=== PATIENT | female | born 1980 | race Caucasian/White ===

== ENCOUNTER 2018-07-04 18:07 | Emergency (ER) | payer MEDICAID ==
[2018-07-04 18:25] VITALS: BP 153/92
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
[2018-07-04] MEDS ORDERED: Morphine 2 MG/ML Syringe IVPUSH ONE (18:26)
[2018-07-04] MEDS ORDERED: Sodium Chloride 0.9% 10 ML Syringe FLUSH PRN (18:26)
[2018-07-04] MEDS ORDERED: Ondansetron 4 MG/2 ML SDV IVPUSH ONE (18:26)
[2018-07-04] MEDS ORDERED: LORazepam 2 MG/ML SDV IVPUSH ONE (18:27)
[2018-07-04] MEDS ORDERED: Sodium Chloride 0.9% 1,000 ML IV SCH (18:30)
[2018-07-04 19:18] LABS: CHLORIDE,CL 102 mmol/L (98-107); SODIUM,NA 141 mmol/L (136-145)
[2018-07-04 19:22] LABS: ANION GAP 16.9 mmol/L (10-20)
[2018-07-04] MEDS ORDERED: diazePAM 5 MG/ML MDV IVPUSH ONE (19:40)
[2018-07-04] MEDS ORDERED: HYDROmorphone 1 MG/ML Syringe IVPUSH ONE (19:40)
--- NOTE | 2018-07-06 09:21 | CT ---
[id number] CT/CT Lumbar Spine WO IV EXAM: LUMBAR SPINE CT WITHOUT CONTRAS INDICATION: Back pain. COMPARISON: None. DISCUSSION: There is a chronic appearing left-sided pars defect at L5 without significant spondylolisthesis. Degenerative endplate sclerosis at L5-S1. No fracture or suspicious bone lesion is identified. The paraspinal soft tissues are unremarkable. Cholecystectomy clips are noted on the scanogram. T12-L1: Negative. L1-L2: Minor annular bulging and bilateral facet degeneration without significant central or foraminal stenosis. L2-L3: Mild annular bulging and bilateral facet degeneration contribute to mild central and bilateral foraminal stenosis. L3-L4: Mild annular bulging and bilateral facet degeneration contribute to mild right foraminal stenosis. No significant central or left foraminal stenosis. L4-L5: Mild to moderate degenerative disc disease with a broad-based disc bulge and mild bilateral facet degeneration contribute to mild central and bilateral foraminal stenosis. L5-S1: Moderate degenerative disc disease with an eccentric left broad-based disc bulge and mild bilateral facet degeneration contribute to mild central, mild left and [id number] right foraminal stenosis. IMPRESSION: 1. Mild to moderate lumbar spondylosis. 2. Left L5 pars defects without significant spondylolisthesis. Jitendra Redding MD 07/06/18 0919 Thank you for allowing us to participate in the care of your patient.
== END 2018-07-04 20:45 | disposition home or self-care (01) ==
LOC: VM.ED 18:07
DX: M54.42 Lumbago with sciatica, left side (principal); F43.10 Post-traumatic stress disorder, unspecified; F11.90 Opioid use, unspecified, uncomplicated; F19.90 Other psychoactive substance use, unspecified, uncomplicated; F41.9 Anxiety disorder, unspecified; F32.9 Major depressive disorder, single episode, unspecified; K21.9 Gastro-esophageal reflux disease without esophagitis; Z79.899 Other long term (current) drug therapy; Z88.8 Allergy status to other drugs, medicaments and biological substances
CPT/HCPCS: 36415; 72131; 80048; 83605; 85025; 86140; 96374; 96375; 99284; J1170; J2060; J2270; J2405; J7030; J3360

== ENCOUNTER 2018-09-25 16:49 | Emergency (ER) | payer MEDICAID ==
--- NOTE | 2018-09-25 17:18 | EDM.PDOC ---
ED HPI GENERAL MEDICAL PROBLEM - General Chief Complaint: Lower Extremity Injury/Pain Stated Complaint: FALL Time Seen by Provider: 09/25/18 16:55 Source of Information: Reports: Patient - History of Present Illness INITIAL COMMENTS - FREE TEXT/NARRATIVE: Patient comes in the emergency department with complaint of left lower back and hip discomfort. Patient states that she was at home and slipped and fell outside landing on her left side. Patient denies hearing any popping sensation. She states that she doesn't history of fibromyalgia, chronic pain and did go to the pain clinic today. Patient did receive cyclobenzaprine to help with muscle spasms. Patient also had an injection earlier in the month help the chronic pain. Patient is very tearful and states that she is in extreme pain. She is able to walk on her own into the emergency department without any difficulty and sit independently. Patient denies of any other injuries or concerns. Onset: Sudden Quality: Reports: Other Severity: Severe Improves with: Reports: None Worsens with: Reports: None Context: Reports: Activity Associated Symptoms: Reports: No Other Symptoms Left Lower Back Pain Score (Numeric/FACES): 8 - Related Data Allergies Allergy/AdvReac Type Severity Reaction Status Date / Time methylprednisolone AdvReac Hallucinati Verified 09/25/18 16:54 ons Home Meds: Home Meds ALPRAZolam [Xanax] 1 mg PO TID 09/20/16 [History] Estradiol [Climara] 0.1 mg TD ASDIRECTED 09/20/16 [History] Omeprazole 20 mg PO DAILY 09/20/16 [History] Acetaminophen [Tylenol] 650 mg PO Q4H PRN tablet 05/20/17 [Rx] Citalopram Hydrobromide [Celexa] 40 mg PO BEDTIME 12/26/17 [History] ARIPiprazole [Abilify] 5 mg PO DAILY 07/03/18 [History] Pantoprazole [ProTONIX] 40 mg PO DAILY 07/03/18 [History] Rizatriptan Benzoate [Rizatriptan] 10 mg PO Q2H PRN 07/03/18 [History] Diclofenac Sodium/Misoprostol [Diclofenac-Misoprost 75-200 Tb] 1 tab PO BID [History] Doxepin [SINEquan] 10 - 20 mg PO BEDTIME PRN 07/04/18 [History] Gabapentin [Neurontin] 300 mg PO TID 30 Days #90 capsule 07/21/18 [Rx] Cyclobenzaprine HCl 10 mg PO TID PRN 30 Days #90 tablet 09/25/18 [Rx] QUEtiapine Fumarate [Seroquel] 200 mg PO BEDTIME 09/25/18 [History] Past Medical History HEENT History: Reports: Impaired Vision, Other (See Below) Other HEENT History: wears glasses Gastrointestinal History: Reports: GERD Musculoskeletal History: Reports: Back Pain, Chronic Neurological History: Reports: Migraines, Seizure, Other (See Below) Other Neuro History: seizure after starting tramadol Psychiatric History: Reports: Anxiety, Depression, Panic Attack, PTSD Endocrine/Metabolic History: Reports: Obesity/BMI 30+ Immunologic History: Reports: None Oncologic (Cancer) History: Reports: None - Infectious Disease History Infectious Disease History: Reports: Chicken Pox - Past Surgical History GI Surgical History: Reports: Appendectomy, Cholecystectomy, Colonoscopy, EGD Female Surgical History: Reports: Section, Hysterectomy, Salpingo- Oophorectomy Other Musculoskeletal Surgeries/Procedures:: fracture, right arm Social & Family History - Family History Family Medical History: Noncontributory : Reports: Other (See Below) Other Musculoskeletal Family History: mother: fibromyalgia Psychiatric: Reports: Depression Other Psychiatric Family History: mother: depression Other Endocrine/Metabolic Family History: brother: obesity Other Oncologic Family History: father: throat cancer - Caffeine Use Caffeine Use: Reports: None Caffeine Use Comment: Patient states she rarely uses caffeine Review of Systems - Review of Systems Review Of Systems: ROS reveals no pertinent complaints other than HPI. Constitutional: Reports: No Symptoms Eyes: Reports: No Symptoms Nose: Reports: No Symptoms Respiratory: Reports: No Symptoms Cardiovascular: Reports: No Symptoms GI/Abdominal: Reports: No Symptoms Musculoskeletal: Reports: Back Pain, Other (left hip pain ) ED EXAM, GENERAL - Physical Exam Exam: See Below Exam Limited By: No Limitations General Appearance: Anxious Eye Exam: Bilateral Eye: EOMI, PERRL Neck: Normal Inspection, Supple, Non-Tender Respiratory/Chest: No Respiratory Distress, Lungs Clear, Normal Breath Sounds, No Accessory Muscle Use, Chest Non-Tender Cardiovascular: Normal Peripheral Pulses, Regular Rate, Rhythm GI/Abdominal: Normal Bowel Sounds, Soft, Non-Tender, No Distention Extremities: Normal Inspection, Normal Range of Motion, Non-Tender Neurological: Alert, Oriented Psychiatric: Anxious Skin Exam: Warm, Dry, Intact, Normal Color Course - Vital Signs Last Recorded V/S: Last Vital Signs Temp 36.1 C 09/25/18 16:49 Pulse 126 H 09/25/18 16:49 Resp 16 09/25/18 16:49 BP 163/106 H 09/25/18 16:49 Pulse Ox 97 09/25/18 16:49 - Orders/Labs/Meds Orders: Active Orders 24 hr Category Date Time Status Lumbar Spine 2 or 3V [CR] Stat Exams 09/25/18 17:04 Ordered Pelvis Min 3V [CR] Stat Exams 09/25/18 17:04 Ordered Departure - Departure Time of Disposition: 18:40 Disposition: Home, Self-Care 01 Condition: Good Clinical Impression: Anxiety attack Contusion, hip Qualifiers: Encounter type: initial encounter Laterality: left Qualified Code(s): S70.02XA - Contusion of left hip, initial encounter - Discharge Information *PRESCRIPTION DRUG MONITORING PROGRAM REVIEWED*: Not Applicable *COPY OF PRESCRIPTION DRUG MONITORING REPORT IN PATIENT ZAIRA: Not Applicable Instructions: Panic Attack, [id number], Contusion Referrals: PCP,Not In Area [Ordering Only Provider] - Additional Instructions: 1. rest 2. Take your cyclobenzaprine as prescribed 3. Ice the area 20 minutes at a time 3-4 times a day 4. Apply compression over the hematoma to help reduce swelling and discomfort 5. Can take [id number] medications to help with any pain and discomfort 6. Activity and diet as tolerated 7. Follow-up if not better with her PCP in 5 days 8. All with any questions and concerns - Problem List Review Problem List Initiated/Reviewed/Updated: Yes - My Orders Last 24 Hours: My Active Orders 09/25/18 17:04 Lumbar Spine 2 or 3V [CR] Stat Pelvis Min 3V [CR] Stat - Assessment/Plan Last 24 Hours: My Active Orders 09/25/18 17:04 Lumbar Spine 2 or 3V [CR] Stat Pelvis Min 3V [CR] Stat Assessment:: 1. back/hip pain 2. anxiety attack Plan: 1. Xray of back and hip 2. patient was prescribed cyclobenzaprine prior to ER visit has has picked up the medication 3. Pt had an anxiety attack during her ER stay. IV access was provided. Zorfran provided for patient began to gag and dry heave. Clonidine and hydroxyzine were given to help with anxiety attack. Within 30 minutes patient states that she is having much better. Patient was back to her baseline. Patient is resting comfortably in her bed. IV fluids normal saline 1000 mL bolus provided. 4. Education regarding rice technique, [id number] medications, rest, diet , and follow-up care was provided to the patient 5. All questions and concerns were addressed prior to the patient's departure.
[2018-09-25] MEDS: Ondansetron 4 MG/2 ML SDV IVPUSH ONE (17:40)
[2018-09-25] MEDS: Sodium Chloride 0.9% 1,000 ML IV ONE (17:48)
[2018-09-25] MEDS: Ketorolac 15 MG/ML SDV IVPUSH ONE (17:51)
--- NOTE | 2018-09-25 17:51 | CR ---
[id number] RAD/RAD Pelvis 1-2V EXAM: SINGLE VIEW PELVIS. INDICATION: FALL. COMPARISON: None. DISCUSSION: No fracture, dislocation or other acute osseous abnormality. IMPRESSION: 1. NO ACUTE OSSEOUS ABNORMALITIES. Klai Asif DO 09/25/18 [id number] Thank you for allowing us to participate in the care of your patient.
[2018-09-25] MEDS: hydrOXYzine HCl 50 MG/ML SDV IM ONE (17:52)
[2018-09-25 17:53] VITALS: BP 137/85
[2018-09-25] MEDS: cloNIDine 0.1 MG Tab PO ONE (17:53)
--- NOTE | 2018-09-25 17:57 | CR ---
[id number] RAD/RAD Lumbar Spine 2-3V EXAM: AP AND LATERAL LUMBAR SPINE. INDICATION: Fall. COMPARISON: CT L-spine without contrast July 04, 2018. FINDINGS: No acute fracture or subluxation is seen. No evidence of acute compression deformity. Mild multilevel degenerative changes of the lumbar spine most pronounced at L2-L3 and L5-S1. The pedicles are intact. IMPRESSION: NO ACUTE FRACTURE OR SUBLUXATION. Kali Asif DO 09/25/18 [id number] Thank you for allowing us to participate in the care of your patient.
== END 2018-09-25 18:40 | disposition home or self-care (01) ==
LOC: VM.ED 16:49
DX: S70.02XA Contusion of left hip, initial encounter (principal); F41.9 Anxiety disorder, unspecified; K21.9 Gastro-esophageal reflux disease without esophagitis; F32.9 Major depressive disorder, single episode, unspecified; E66.9 Obesity, unspecified; Z79.899 Other long term (current) drug therapy; Z90.49 Acquired absence of other specified parts of digestive tract; Z88.8 Allergy status to other drugs, medicaments and biological substances; W01.0XXA Fall on same level from slipping, tripping and stumbling without subsequent striking against object, initial encounter
CPT/HCPCS: 72100; 72170; 96361; 96372; 96374; 96375; 99283; A9270; J1885; J2405; J3410; J7030

== ENCOUNTER 2019-01-28 17:36 | Emergency (ER) | payer MEDICAID ==
[2019-01-28] MEDS ORDERED: Sodium Chloride 0.9% 10 ML Syringe FLUSH PRN (17:52)
[2019-01-28] MEDS: Albuterol/Ipratropium 3.0-0.5 MG/3 ML Neb Soln NEB ONE (18:00)
--- NOTE | 2019-01-28 18:05 | EDM.PDOC ---
ED HPI GENERAL MEDICAL PROBLEM - General Chief Complaint: General Stated Complaint: HEART DOESN'T FEEL RIGHT Time Seen by Provider: 01/28/19 17:45 Source of Information: Reports: Patient History Limitations: Reports: No Limitations - History of Present Illness INITIAL COMMENTS - FREE TEXT/NARRATIVE: Pt presents c/o shortness of breath for the past month, sharp on and off cp in the past. Quality: Reports: Sharp Severity: Moderate Improves with: Reports: None Worsens with: Reports: None Associated Symptoms: Reports: No Other Symptoms - Related Data Allergies Allergy/AdvReac Type Severity Reaction Status Date / Time methylprednisolone AdvReac Hallucinati Verified 09/25/18 16:54 ons Home Meds: Home Meds ALPRAZolam [Xanax] 1 mg PO TID 09/20/16 [History] Estradiol [Climara] 0.1 mg TD ASDIRECTED 09/20/16 [History] Omeprazole 20 mg PO DAILY 09/20/16 [History] Acetaminophen [Tylenol] 650 mg PO Q4H PRN tablet 05/20/17 [Rx] Citalopram Hydrobromide [Celexa] 40 mg PO BEDTIME 12/26/17 [History] ARIPiprazole [Abilify] 5 mg PO DAILY 07/03/18 [History] Pantoprazole [ProTONIX] 40 mg PO DAILY 07/03/18 [History] Rizatriptan Benzoate [Rizatriptan] 10 mg PO Q2H PRN 07/03/18 [History] Diclofenac Sodium/Misoprostol [Diclofenac-Misoprost 75-200 Tb] 1 tab PO BID [History] Doxepin [SINEquan] 10 - 20 mg PO BEDTIME PRN 07/04/18 [History] Cyclobenzaprine HCl 10 mg PO TID PRN 30 Days #90 tablet 09/25/18 [Rx] QUEtiapine Fumarate [Seroquel] 200 mg PO BEDTIME 09/25/18 [History] Gabapentin [Neurontin] 300 mg PO TID 30 Days #90 capsule 01/04/19 [Rx] Past Medical History HEENT History: Reports: Impaired Vision, Other (See Below) Other HEENT History: wears glasses Gastrointestinal History: Reports: GERD Musculoskeletal History: Reports: Back Pain, Chronic Neurological History: Reports: Migraines, Seizure, Other (See Below) Other Neuro History: seizure after starting tramadol Psychiatric History: Reports: Anxiety, Depression, Panic Attack, PTSD Endocrine/Metabolic History: Reports: Obesity/BMI 30+ Immunologic History: Reports: None Oncologic (Cancer) History: Reports: None - Infectious Disease History Infectious Disease History: Reports: Chicken Pox - Past Surgical History GI Surgical History: Reports: Appendectomy, Cholecystectomy, Colonoscopy, EGD Female Surgical History: Reports: Section, Hysterectomy, Salpingo- Oophorectomy Other Musculoskeletal Surgeries/Procedures:: fracture, right arm Social & Family History - Family History Family Medical History: Noncontributory : Reports: Other (See Below) Other Musculoskeletal Family History: mother: fibromyalgia Psychiatric: Reports: Depression Other Psychiatric Family History: mother: depression Other Endocrine/Metabolic Family History: brother: obesity Other Oncologic Family History: father: throat cancer - Caffeine Use Caffeine Use: Reports: None Caffeine Use Comment: Patient states she rarely uses caffeine ED ROS GENERAL - Review of Systems Review Of Systems: See Below Constitutional: Reports: No Symptoms HEENT: Reports: No Symptoms Respiratory: Reports: Shortness of Breath Cardiovascular: Reports: Chest Pain Endocrine: Reports: No Symptoms GI/Abdominal: Reports: No Symptoms : Reports: No Symptoms Musculoskeletal: Reports: No Symptoms Skin: Reports: No Symptoms Neurological: Reports: No Symptoms Psychiatric: Reports: No Symptoms Hematologic/Lymphatic: Reports: No Symptoms Immunologic: Reports: No Symptoms ED EXAM, GENERAL - Physical Exam Exam: See Below Free Text/Narrative:: Pt presents with on and off shortness of breath and sharp chest pain for the last month. Pt states it has gotten worse tonight. PT states has hx of anxiety and is dealing with the of some close friends this week. Post Ativan RR / sob improved, cp improved. Exam Limited By: No Limitations General Appearance: Alert, WD/WN, No Apparent Distress Eye Exam: Bilateral Eye: PERRL Ears: Normal External Exam, Normal Canal, Hearing Grossly Normal, Normal TMs Nose: Normal Inspection Throat/Mouth: Normal Inspection Head: Atraumatic, Normocephalic Neck: Normal Inspection, Supple, Non-Tender Respiratory/Chest: No Respiratory Distress, Lungs Clear, Normal Breath Sounds, No Accessory Muscle Use, Chest Non-Tender Cardiovascular: Normal Peripheral Pulses, Regular Rate, Rhythm, No Edema, No Gallop, No JVD, No Murmur, No Rub GI/Abdominal: Normal Bowel Sounds, Soft, Non-Tender, No Organomegaly, No Distention, No Abnormal Bruit, No Mass, Pelvis Stable (Female) Exam: Normal External Exam, Normal Speculum Exam, Normal Bimanual Exam Rectal (Female) Exam: Normal Exam, Normal Rectal Tone Back Exam: Normal Inspection, Full Range of Motion Extremities: Normal Inspection, Normal Range of Motion, Non-Tender, No Pedal Edema, Normal Capillary Refill Neurological: Alert, Oriented Psychiatric: Anxious Skin Exam: Warm, Dry, Intact Lymphatic: No Adenopathy Course - Orders/Labs/Meds Orders: Active Orders 24 hr Category Date Time Status RT Aerosol Therapy [RC] ASDIRECTED Care 01/28/19 17:54 Active UA RFX GAYATHRI AND CULT IF INDIC [URIN] Stat Lab 01/28/19 17:52 Ordered Sodium Chloride 0.9% [Saline Flush] Med 01/28/19 17:52 Active 10 ml FLUSH ASDIRECTED PRN Peripheral IV Insertion Adult [OM.PC] Routine Oth 01/28/19 17:52 Ordered Medication Orders Sodium Chloride (Saline Flush) 10 ml FLUSH ASDIRECTED PRN PRN Reason: Keep Vein Open Labs: Laboratory Tests 01/28/19 01/28/19 Range/Units 18:14 18:14 WBC 11.1 H (4.0-10.0) x10^3/uL RBC 4.83 (4.00-5.50) x10^6/uL Hgb 15.0 (12.0-16.0) g/dL Hct 43.8 (33.0-47.0) % MCV 90.7 (78.0-93.0) fL MCH 31.1 (26.0-32.0) pg MCHC 34.2 (32.0-36.0) g/dL RDW Coeff of Cameron 13.1 (10.0-15.0) % Plt Count 319 (130-400) x10^3/uL Neut % (Auto) 65.7 (50.0-80.0) % Lymph % (Auto) 28.5 (25.0-50.0) % [place] % (Auto) 5.2 (2.0-11.0) % Eos % (Auto) 0.3 (0.0-4.0) % Baso % (Auto) 0.3 (0.2-1.2) % Sodium 141 (69-191) mmol/L Potassium 3.7 (1.5-9.9) mmol/L Chloride 101 (54-184) mmol/L Carbon Dioxide 27 (21-32) mmol/L Anion Gap 16.7 (10-20) mmol/L BUN 7 (7-18) mg/dL Creatinine 0.9 (0.55-1.02) mg/dL Est Cr Clr Drug Dosing TNP Estimated GFR (MDRD) > 60 Glucose 125 H (74-106) mg/dL Calcium 9.1 (8.5-10.1) mg/dL Meds: Medications Generic Name Dose Route Start Last Admin Trade Name Freq PRN Reason Stop Dose Admin Sodium Chloride 10 ml 01/28/19 17:52 Saline Flush FLUSH ASDIRECTED PRN Keep Vein Open Discontinued Medications Generic Name Dose Route Start Last Admin Trade Name Freq PRN Reason Stop Dose Admin Albuterol/Ipratropium 3 ml 01/28/19 17:54 01/28/19 18:00 Duoneb 3.0-0.5 Mg/3 Ml NEB 01/28/19 17:55 3 ml ONETIME ONE Administration Sodium Chloride 1,000 mls @ 999 mls/hr 01/28/19 17:53 01/28/19 18:18 Normal Saline IV 01/28/19 18:53 999 mls/hr ONETIME ONE Administration Lorazepam 1 mg 01/28/19 18:19 Ativan IVPUSH 01/28/19 18:20 STAT ONE Departure - Departure Time of Disposition: 18:54 Disposition: Home, Self-Care 01 Clinical Impression: Anxiety - Discharge Information Instructions: Panic Attack, [id number] Forms: ED Department Discharge Additional Instructions: Follow up with pcp for continued care. - My Orders Last 24 Hours: My Active Orders 01/28/19 17:52 UA RFX GAYATHRI AND CULT IF INDIC [URIN] Stat Sodium Chloride 0.9% [Saline Flush] 10 ml FLUSH ASDIRECTED PRN Peripheral IV Insertion Adult [OM.PC] Routine 01/28/19 17:54 RT Aerosol Therapy [RC] ASDIRECTED - Assessment/Plan Last 24 Hours: My Active Orders 01/28/19 17:52 UA RFX GAYATHRI AND CULT IF INDIC [URIN] Stat Sodium Chloride 0.9% [Saline Flush] 10 ml FLUSH ASDIRECTED PRN Peripheral IV Insertion Adult [OM.PC] Routine 01/28/19 17:54 RT Aerosol Therapy [RC] ASDIRECTED
[2019-01-28] MEDS: Sodium Chloride 0.9% 1,000 ML IV ONE (18:18)
[2019-01-28] MEDS: LORazepam 2 MG/ML SDV IVPUSH ONE (18:20)
--- NOTE | 2019-01-28 18:20 | CR ---
[id number] RAD/RAD Chest PA And Lateral EXAM: RAD Chest PA And Lateral CLINICAL DATA: CHEST PAIN COMPARISON: NO PREVIOUS SIMILAR EXAM IS AVAILABLE. FINDINGS: The lungs are clear. The cardiomediastinal contour is normal. The regional bones and soft tissues are unremarkable. IMPRESSION: NO ACUTE PROCESS. Baldev Woody MD 01/28/19 1801 Thank you for allowing us to participate in the care of your patient.
[2019-01-28 18:36] LABS: CHLORIDE,CL 101 mmol/L (54-184); SODIUM,NA 141 mmol/L (69-191)
[2019-01-28 18:42] LABS: ANION GAP 16.7 mmol/L (10-20)
== END 2019-01-28 19:03 | disposition home or self-care (01) ==
LOC: VM.ED 17:36 → SUPCPDRO 17:36 → VM.ED 19:03
DX: F41.9 Anxiety disorder, unspecified (principal); F32.9 Major depressive disorder, single episode, unspecified; K21.9 Gastro-esophageal reflux disease without esophagitis; E66.9 Obesity, unspecified; Z79.899 Other long term (current) drug therapy; Z88.8 Allergy status to other drugs, medicaments and biological substances
CPT/HCPCS: 71046; 80048; 85025; 96361; 96374; 99285; J2060; J7030; J7620-GY

== ENCOUNTER 2019-05-17 18:31 | Emergency (ER) | payer MEDICAID ==
[2019-05-17] MEDS ORDERED: GI Cocktail Oral Solution 30 ML PO ONE (19:08)
--- NOTE | 2019-05-17 19:22 | EDM.PDOC ---
ED HPI GENERAL MEDICAL PROBLEM - General Chief Complaint: Abdominal Pain Stated Complaint: UPPER GI PAIN Time Seen by Provider: 05/17/19 19:30 Source of Information: Reports: Patient - History of Present Illness INITIAL COMMENTS - FREE TEXT/NARRATIVE: Nette is a 38 y/o female who comes to the ER with epigastric pain. She reports that pain started about 2 hours ago after she ate some toast and cheese. She was seen on 05/10/2019 by the clinic provider and a CT was done and she was diagnosed with colitis. She was started on abx and Prednisone. She has been feeling better until tonight when the pain started. Has normal BM this AM. Upper Abdomen Pain Score (Numeric/FACES): 8 - Related Data Allergies Allergy/AdvReac Type Severity Reaction Status Date / Time methylprednisolone AdvReac Hallucinati Verified 05/17/19 19:06 ons Home Meds: Home Meds ALPRAZolam [Xanax] 1 mg PO TID 09/20/16 [History] estradioL [Climara] 0.1 mg TD ASDIRECTED 09/20/16 [History] Acetaminophen [Tylenol] 650 mg PO Q4H PRN tablet 05/20/17 [Rx] ARIPiprazole [Abilify] 5 mg PO DAILY 07/03/18 [History] Pantoprazole [ProTONIX] 40 mg PO DAILY 07/03/18 [History] Rizatriptan Benzoate [Rizatriptan] 10 mg PO Q2H PRN 07/03/18 [History] FLUoxetine HCl [Prozac] 20 mg PO DAILY 03/09/19 [History] Cyclobenzaprine HCl 10 mg PO TID PRN 30 Days #90 tablet 05/07/19 [Rx] Gabapentin [Neurontin] 600 mg PO TID 30 Days #90 tab 05/07/19 [Rx] Past Medical History HEENT History: Reports: Impaired Vision, Other (See Below) Other HEENT History: wears glasses Gastrointestinal History: Reports: GERD Musculoskeletal History: Reports: Back Pain, Chronic Neurological History: Reports: Migraines, Seizure, Other (See Below) Other Neuro History: seizure after starting tramadol Psychiatric History: Reports: Anxiety, Depression, Panic Attack, PTSD Endocrine/Metabolic History: Reports: Obesity/BMI 30+ Immunologic History: Reports: None Oncologic (Cancer) History: Reports: None - Infectious Disease History Infectious Disease History: Reports: Chicken Pox - Past Surgical History GI Surgical History: Reports: Appendectomy, Cholecystectomy, Colonoscopy, EGD Female Surgical History: Reports: Section, Hysterectomy, Salpingo- Oophorectomy Other Musculoskeletal Surgeries/Procedures:: fracture, right arm Social & Family History - Family History Family Medical History: Noncontributory : Reports: Other (See Below) Other Musculoskeletal Family History: mother: fibromyalgia Psychiatric: Reports: Depression Other Psychiatric Family History: mother: depression Other Endocrine/Metabolic Family History: brother: obesity Other Oncologic Family History: father: throat cancer - Caffeine Use Caffeine Use: Reports: None Caffeine Use Comment: Patient states she rarely uses caffeine Review of Systems - Review of Systems Review Of Systems: See Below Constitutional: Reports: No Symptoms Eyes: Reports: No Symptoms Ears: Reports: No Symptoms Nose: Reports: No Symptoms Mouth/Throat: Reports: No Symptoms Respiratory: Reports: No Symptoms Cardiovascular: Reports: No Symptoms GI/Abdominal: Reports: Abdominal Pain (epigastric pain) Genitourinary: Reports: No Symptoms Musculoskeletal: Reports: No Symptoms Skin: Reports: No Symptoms Neurological: Reports: No Symptoms Psychiatric: Reports: No Symptoms ED EXAM, GENERAL - Physical Exam Exam: See Below General Appearance: Alert, WD/WN, Other (Sitting on ER cart and leaning over pillow and crying) Ears: Hearing Grossly Normal Nose: Normal Inspection Throat/Mouth: Normal Voice Head: Atraumatic, Normocephalic Neck: Normal Inspection Respiratory/Chest: No Respiratory Distress, Lungs Clear, Chest Non-Tender Cardiovascular: Regular Rate, Rhythm, No Edema, No Murmur GI/Abdominal: Normal Bowel Sounds, Soft, No Distention, Tender (Epigastric region), Other (Obese) (Female) Exam: Deferred Rectal (Female) Exam: Deferred Back Exam: Normal Inspection Extremities: Normal Inspection, Normal Capillary Refill Neurological: Alert, Oriented, CN II-XII Intact, Normal Cognition Psychiatric: Normal Affect Skin Exam: Warm, Dry, Intact, Normal Color, No Rash Lymphatic: No Adenopathy Course - Vital Signs Text/Narrative:: 1914 The patient was seen by the CHANGE CONTROL MANAGER. She is still on abx. Will given GI cocktail intially to see if sx improve. 1934 No pain relief from GI Cocktail. Labs and CT ordered. 2109 Lab reviewed. Patient reports no relief of pain yet in her epigastric region. Fentanyl 100mcg IVP ordered. 2[address] [facility] in [place] contacted and requested transfer there for further care. CT sent for surgeon to review. 2139 Dr Jaimes accepted the patient for transfer to [facility]. Patient requesting to have family member take her POV, she is stable at this time. Will await bed assignment from [facility]. Patient remained stable until leaving the ER with family member for POV transfer to [place]. Last Recorded V/S: Last Vital Signs Temp 36.9 C 05/17/19 18:45 Pulse 118 H 05/17/19 18:45 Resp 20 05/17/19 18:45 BP 160/101 H 05/17/19 18:45 Pulse Ox 96 05/17/19 18:45 - Orders/Labs/Meds Orders: Active Orders 24 hr Category Date Time Status Abdomen Pelvis w Cont [CT] Stat Exams 05/17/19 19:40 Taken Sodium Chloride 0.9% [Saline Flush] Med 05/17/19 19:39 Active 10 ml FLUSH ASDIRECTED PRN Saline Lock Insert [OM.PC] Stat Oth 05/17/19 19:39 Ordered Medication Orders Sodium Chloride (Saline Flush) 10 ml FLUSH ASDIRECTED PRN PRN Reason: Keep Vein Open Labs: Laboratory Tests 05/17/19 05/17/19 05/17/19 Range/Units 19:50 19:50 20:16 WBC 16.2 H (4.0-10.0) x10^3/uL RBC 4.64 (4.00-5.50) x10^6/uL Hgb 14.3 (12.0-16.0) g/dL Hct 42.7 (33.0-47.0) % MCV 92.0 (78.0-93.0) fL MCH 30.8 (26.0-32.0) pg MCHC 33.5 (32.0-36.0) g/dL RDW Coeff of Cameron 13.0 (10.0-15.0) % Plt Count 345 (130-400) x10^3/uL Add Manual Diff Yes Neutrophils % (Manual) 72 (50-80) % Band Neutrophils % 2 (0-6) % Lymphocytes % (Manual) 22 L (25-50) % Monocytes % (Manual) 3 (2-11) % Eosinophils % (Manual) 1 (0-4) % Hypersegmented Neuts Few H Platelet Estimate Adequate Sodium 140 (136-145) mmol/L Potassium 3.9 (3.5-5.1) mmol/L Chloride 100 (98-107) mmol/L Carbon Dioxide 30 (21-32) mmol/L Anion Gap 13.9 (10-20) mmol/L BUN 12 (7-18) mg/dL Creatinine 0.8 (0.55-1.02) mg/dL Est Cr Clr Drug Dosing 90.90 mL/min Estimated GFR (MDRD) > 60 Glucose 95 (74-106) mg/dL Calcium 9.6 (8.5-10.1) mg/dL Corrected Calcium 9.84 (8.5-10.1) mg/dL Total Bilirubin 0.2 (0.2-1.0) mg/dL AST 17 (15-37) U/L ALT 28 (14-59) U/L Alkaline Phosphatase 134 H (46-116) U/L Total Protein 7.4 (6.4-8.2) g/dL Albumin 3.7 (3.4-5.0) g/dL Globulin 3.7 Albumin/Globulin Ratio 1.00 Amylase 19 L (25-115) U/L Lipase 45 L (73-393) U/L Urine Color Yellow (YELLOW) Urine Appearance Slightly cloudy H (CLEAR) Urine pH 5.5 (5.0-8.0) Ur Specific [place] 1.025 Urine Protein Negative (NEGATIVE) mg/dL Urine Glucose (UA) Negative (NEGATIVE) mg/dL Urine Ketones Negative (NEGATIVE) mg/dL Urine Occult Blood Negative (NEGATIVE) Urine Nitrite Negative (NEGATIVE) Urine Bilirubin Negative (NEGATIVE) Urine Urobilinogen 0.2 (0.2) EU/dL Ur Leukocyte Esterase Negative (NEGATIVE) Urine Opiates Screen (NEGATIVE) Ur Buprenorphine Scrn (NEGATIVE) Ur Oxycodone Screen (NEGATIVE) Ur EDDP (Meth Metab) (NEGATIVE) Urine Methadone Screen (NEGATIVE) Ur Barbituates Screen (NEGATIVE) Ur Tricyclics Screen (NEGATIVE) Ur Phencyclidine Scrn (NEGATIVE) Ur Amphetamines Screen (NEGATIVE) U Methamphetamines Scrn (NEGATIVE) Urine MDMA Screen (NEGATIVE) U Benzodiazepines Scrn (NEGATIVE) Urine Cocaine Screen (NEGATIVE) U Marijuana (THC) Screen (NEGATIVE) 05/17/19 Range/Units 20:16 WBC (4.0-10.0) x10^3/uL RBC (4.00-5.50) x10^6/uL Hgb (12.0-16.0) g/dL Hct (33.0-47.0) % MCV (78.0-93.0) fL MCH (26.0-32.0) pg MCHC (32.0-36.0) g/dL RDW Coeff of Cameron (10.0-15.0) % Plt Count (130-400) x10^3/uL Add Manual Diff Neutrophils % (Manual) (50-80) % Band Neutrophils % (0-6) % Lymphocytes % (Manual) (25-50) % Monocytes % (Manual) (2-11) % Eosinophils % (Manual) (0-4) % Hypersegmented Neuts Platelet Estimate Sodium (136-145) mmol/L Potassium (3.5-5.1) mmol/L Chloride (98-107) mmol/L Carbon Dioxide (21-32) mmol/L Anion Gap (10-20) mmol/L BUN (7-18) mg/dL Creatinine (0.55-1.02) mg/dL Est Cr Clr Drug Dosing mL/min Estimated GFR (MDRD) Glucose (74-106) mg/dL Calcium (8.5-10.1) mg/dL Corrected Calcium (8.5-10.1) mg/dL Total Bilirubin (0.2-1.0) mg/dL AST (15-37) U/L ALT (14-59) U/L Alkaline Phosphatase (46-116) U/L Total Protein (6.4-8.2) g/dL Albumin (3.4-5.0) g/dL Globulin Albumin/Globulin Ratio Amylase (25-115) U/L Lipase (73-393) U/L Urine Color (YELLOW) Urine Appearance (CLEAR) Urine pH (5.0-8.0) Ur Specific [place] Urine Protein (NEGATIVE) mg/dL Urine Glucose (UA) (NEGATIVE) mg/dL Urine Ketones (NEGATIVE) mg/dL Urine Occult Blood (NEGATIVE) Urine Nitrite (NEGATIVE) Urine Bilirubin (NEGATIVE) Urine Urobilinogen (0.2) EU/dL Ur Leukocyte Esterase (NEGATIVE) Urine Opiates Screen Negative (NEGATIVE) Ur Buprenorphine Scrn Negative (NEGATIVE) Ur Oxycodone Screen Negative (NEGATIVE) Ur EDDP (Meth Metab) Negative (NEGATIVE) Urine Methadone Screen Negative (NEGATIVE) Ur Barbituates Screen Negative (NEGATIVE) Ur Tricyclics Screen Positive H (NEGATIVE) Ur Phencyclidine Scrn Negative (NEGATIVE) Ur Amphetamines Screen Negative (NEGATIVE) U Methamphetamines Scrn Negative (NEGATIVE) Urine MDMA Screen Negative (NEGATIVE) U Benzodiazepines Scrn Positive H (NEGATIVE) Urine Cocaine Screen Negative (NEGATIVE) U Marijuana (THC) Screen Negative (NEGATIVE) Meds: Medications Generic Name Dose Route Start Last Admin Trade Name Freq PRN Reason Stop Dose Admin Sodium Chloride 10 ml 05/17/19 19:39 Saline Flush FLUSH ASDIRECTED PRN Keep Vein Open Discontinued Medications Generic Name Dose Route Start Last Admin Trade Name Freq PRN Reason Stop Dose Admin Al Hydroxide/Mg Hydroxide 30 ml 05/17/19 19:08 05/17/19 19:13 Gi Cocktail PO 05/17/19 19:09 30 ml ONETIME ONE Administration Fentanyl 100 mcg 05/17/19 21:12 Sublimaze IVPUSH 05/17/19 21:13 ONETIME ONE Sodium Chloride 1,000 mls @ 999 mls/hr 05/17/19 19:39 05/17/19 19:50 Normal Saline IV 05/17/19 20:39 999 mls/hr ONETIME ONE Administration Iopamidol 100 ml 05/17/19 20:25 05/17/19 20:50 Isovue-300 (61%) IVPUSH 05/17/19 20:26 100 ml ONETIME ONE Administration Ketorolac Tromethamine 30 mg 05/17/19 19:39 05/17/19 20:02 Toradol IVPUSH 05/17/19 19:40 30 mg ONETIME ONE Administration Ondansetron HCl 4 mg 05/17/19 19:39 05/17/19 20:00 Zofran IVPUSH 05/17/19 19:40 4 mg ONETIME ONE Administration - Radiology Interpretation Free Text/Narrative:: CT Abd/Pelvis W=Mild to Moderate small bowel obstruction with transition point at or near the jejunal-ileal junction CT Results Date: 05/17/19 CT Results Time: 21:35 Departure - Departure Time of Disposition: 21:45 Disposition: DC/Tfer to Acute Hospital 02 Condition: Good Clinical Impression: Small bowel obstruction - Discharge Information *PRESCRIPTION DRUG MONITORING PROGRAM REVIEWED*: Not Applicable *COPY OF PRESCRIPTION DRUG MONITORING REPORT IN PATIENT ZAIRA: Not Applicable Referrals: Rommel Huynh PA-C [Primary Care Provider] - Forms: ED Department Discharge, Interfacility Transfer EMTALA Additional Instructions: -Transfer to [facility] to Dr Díaz via POV -NPO -Saline Lock in place -To Rm #[id number] [facility] Sepsis Event Note - Focused Exam Vital Signs: Vital Signs Temp Pulse Resp BP Pulse Ox 05/17/19 18:45 36.9 C 118 H 20 160/101 H 96 Date Exam was Performed: 05/17/19 Time Exam was Performed: 21:34 - My Orders Last 24 Hours: My Active Orders 05/17/19 19:39 Sodium Chloride 0.9% [Saline Flush] 10 ml FLUSH ASDIRECTED PRN Saline Lock Insert [OM.PC] Stat 05/17/19 19:40 Abdomen Pelvis w Cont [CT] Stat - Assessment/Plan Last 24 Hours: My Active Orders 05/17/19 19:39 Sodium Chloride 0.9% [Saline Flush] 10 ml FLUSH ASDIRECTED PRN Saline Lock Insert [OM.PC] Stat 05/17/19 19:40 Abdomen Pelvis w Cont [CT] Stat
[2019-05-17] MEDS ORDERED: Sodium Chloride 0.9% 1,000 ML IV ONE (19:39)
[2019-05-17] MEDS ORDERED: Sodium Chloride 0.9% 10 ML Syringe FLUSH PRN (19:39)
[2019-05-17] MEDS ORDERED: Ondansetron 4 MG/2 ML SDV IVPUSH ONE (19:39)
[2019-05-17] MEDS ORDERED: Ketorolac 30 MG/ML SDV IVPUSH ONE (19:39)
[2019-05-17 20:19] LABS: CHLORIDE,CL 100 mmol/L (98-107); SODIUM,NA 140 mmol/L (136-145)
[2019-05-17 20:22] LABS: ANION GAP 13.9 mmol/L (10-20)
[2019-05-17] MEDS ORDERED: Iopamidol 612 MG/ML 100 ML Bottle IVPUSH ONE (20:25)
[2019-05-17 20:30] LABS: BUPRENORPHINE,URINE NEGATIVE (NEGATIVE); MARIJUANA,URINE NEGATIVE (NEGATIVE); METHYLENEDIOXYMETHAMP,UR NEGATIVE (NEGATIVE); PHENCYCLIDINE,URINE NEGATIVE (NEGATIVE)
[2019-05-17] MEDS ORDERED: fentaNYL 100 MCG/2 ML SDV IVPUSH ONE (21:12)
[2019-05-17] MEDS ORDERED: Sodium Chloride 0.9% 1,000 ML IV SCH (21:45)
[2019-05-17 21:50] VITALS: BP 118/85; PULSE 117
--- NOTE | 2019-05-18 07:58 | CT ---
[id number] CT/CT Abdomen Pelvis W IV EXAM: CT Abdomen Pelvis W IV CLINICAL DATA: ABDOMINAL PAIN HISTORY OF COLITIS COMPARISON: CORRELATION IS MADE WITH THE EXAM OF MAY 10, 2019 FINDINGS: Small bowel obstruction is seen The transition is in the distal jejunum The pelvis shows no mass or adenopathy The appendix is not seen The uterus and ovaries appear to have been removed There is no free air or free fluid The gallbladder also appears to have been removed The liver and spleen, adrenals and aorta, kidneys and pancreas are unremarkable Report provided at time of exam IMPRESSION: DISTAL SMALL BOWEL OBSTRUCTION Baldev Woody MD 05/18/19 0757 Thank you for allowing us to participate in the care of your patient.
== END 2019-05-17 22:05 | disposition short-term general hospital (02) ==
LOC: VM.ED 18:31
DX: K56.609 Unspecified intestinal obstruction, unspecified as to partial versus complete obstruction (principal); K21.9 Gastro-esophageal reflux disease without esophagitis; F41.9 Anxiety disorder, unspecified; F32.9 Major depressive disorder, single episode, unspecified; G43.909 Migraine, unspecified, not intractable, without status migrainosus; E66.9 Obesity, unspecified; Z68.23 Body mass index [BMI] 23.0-23.9, adult; Z88.8 Allergy status to other drugs, medicaments and biological substances; Z79.899 Other long term (current) drug therapy
CPT/HCPCS: 36415; 74177; 80053; 80305; 81003; 82150; 83690; 85025; 96361; 96374; 96375; 99285; A9270; J1885; J2405; J3010; J7030; Q9967

== ENCOUNTER 2019-12-19 18:25 | Emergency (ER) | payer MEDICAID ==
[2019-12-19] MEDS ORDERED: Sodium Chloride 0.9% 10 ML Syringe FLUSH PRN (18:30)
[2019-12-19] MEDS ORDERED: Sodium Chloride 0.9% 1,000 ML IV ONE (18:32)
[2019-12-19] MEDS ORDERED: Ketorolac 15 MG/ML SDV IVPUSH ONE (18:32)
[2019-12-19] MEDS ORDERED: Ondansetron 4 MG/2 ML SDV IVPUSH ONE (18:32)
--- NOTE | 2019-12-19 18:37 | EDM.PDOC ---
<Elizabeth Carlisle - Last Filed: 12/19/19 18:32> ED HPI GENERAL MEDICAL PROBLEM - General Chief Complaint: Abdominal Pain Stated Complaint: ABDOMINAL PAIN Time Seen by Provider: 12/19/19 18:25 Source of Information: Reports: Patient History Limitations: Reports: No Limitations - History of Present Illness INITIAL COMMENTS - FREE TEXT/NARRATIVE: Patient comes into the emergency department with complaint of abdominal pain. Patient states abdominal pain started earlier in the day and describes as sharp shooting sensation on the left mid section of her abdomen. Patient states that it has been constant and has been getting worse ever since the pain started. Patient denies any Activities that make the symptoms worse or better. Patient states that she has had 4 bowel movements which are normal for her. Her bowel movements have been it normal characteristics for her. Patient denies any nausea or vomiting currently with this. She also denies any abnormal gi symptoms of foul smelling urination, frequency, hesitancy, bleeding, or pelvic pain. Patient Also denies any chest pain, shortness of breath, blurred vision, or peripheral edema. Patient states that she is been relatively healthy and has not been exposed any COVID19 symptoms that she is aware of and has not been experiencing any symptoms. Patient denies taking any medications prior to arrival to the emergency department. Onset: Sudden Location: Reports: Abdomen Quality: Reports: Sharp, Stabbing, Throbbing Severity: Severe Improves with: Reports: None Worsens with: Reports: None Associated Symptoms: Reports: No Other Symptoms - Related Data Allergies Allergy/AdvReac Type Severity Reaction Status Date / Time methylprednisolone AdvReac Hallucinati Verified 12/19/19 19:03 ons Home Meds: Home Meds estradioL [Climara] 0.1 mg TD ASDIRECTED 09/20/16 [History] ARIPiprazole [Abilify] 5 mg PO DAILY 07/03/18 [History] Pantoprazole [ProTONIX] 40 mg PO DAILY 07/03/18 [History] FLUoxetine HCl [Prozac] 20 mg PO DAILY 03/09/19 [History] Past Medical History HEENT History: Reports: Impaired Vision, Other (See Below) Other HEENT History: wears glasses Gastrointestinal History: Reports: GERD Musculoskeletal History: Reports: Back Pain, Chronic Neurological History: Reports: Migraines, Seizure, Other (See Below) Other Neuro History: seizure after starting tramadol Psychiatric History: Reports: Anxiety, Depression, Panic Attack, PTSD Endocrine/Metabolic History: Reports: Obesity/BMI 30+ Immunologic History: Reports: None Oncologic (Cancer) History: Reports: None - Infectious Disease History Infectious Disease History: Reports: Chicken Pox - Past Surgical History GI Surgical History: Reports: Appendectomy, Cholecystectomy, Colonoscopy, EGD Female Surgical History: Reports: Section, Hysterectomy, Salpingo- Oophorectomy Other Musculoskeletal Surgeries/Procedures:: fracture, right arm Social & Family History - Family History Family Medical History: Noncontributory : Reports: Other (See Below) Other Musculoskeletal Family History: mother: fibromyalgia Psychiatric: Reports: Depression Other Psychiatric Family History: mother: depression Other Endocrine/Metabolic Family History: brother: obesity Other Oncologic Family History: father: throat cancer - Caffeine Use Caffeine Use: Reports: None Caffeine Use Comment: Patient states she rarely uses caffeine ED ROS GENERAL - Review of Systems Review Of Systems: Comprehensive ROS is negative, except as noted in HPI. Constitutional: Reports: No Symptoms HEENT: Reports: No Symptoms Respiratory: Reports: No Symptoms Cardiovascular: Reports: No Symptoms Endocrine: Reports: No Symptoms : Reports: No Symptoms Musculoskeletal: Reports: No Symptoms Skin: Reports: No Symptoms Neurological: Reports: No Symptoms Psychiatric: Reports: No Symptoms Hematologic/Lymphatic: Reports: No Symptoms Immunologic: Reports: No Symptoms ED EXAM, GENERAL - Physical Exam Exam: See Below Exam Limited By: No Limitations General Appearance: Alert, WD/WN, No Apparent Distress Eye Exam: Bilateral Eye: EOMI, PERRL Head: Atraumatic, Normocephalic Neck: Normal Inspection, Supple, Non-Tender, Full Range of Motion Respiratory/Chest: No Respiratory Distress, Lungs Clear, Normal Breath Sounds, No Accessory Muscle Use, Chest Non-Tender Cardiovascular: Normal Peripheral Pulses, Regular Rate, Rhythm, No Edema GI/Abdominal: Normal Bowel Sounds, Soft, No Organomegaly, No Distention, No Abnormal Bruit, Pelvis Stable, Tender (left flank region ) Extremities: Normal Inspection, Normal Range of Motion, Non-Tender, No Pedal Edema, Normal Capillary Refill Neurological: Alert, Oriented Psychiatric: Normal Affect, Anxious Skin Exam: Warm, Dry, Intact, Normal Color Departure - Departure Disposition: Home, Self-Care 01 Clinical Impression: Abdominal pain - Discharge Information Instructions: Acetaminophen; Hydrocodone tablets or capsules, Abdominal Pain, Adult Referrals: Rommel Huynh PA-C [Primary Care Provider] - Forms: ED Department Discharge Additional Instructions: Home to rest. If you are still having pain, follow-up in the clinic. Your CT scan today was negative for obstruction, diverticulitis, ruptured bowel, etc. However, if you are still having discomfort, you may need further workup/surgical referral. [place] 5/325mg 1 every 6 hours as needed for pain. Off work tomorrow if needed. - Assessment/Plan Assessment:: 1. abdominal pain Plan: 1. Labs completed in the ER. 2. CT scan completed in the ER. 3. IV initiated in the emergency department 4. IV fluids provided 5. Pain medication given for severe pain and discomfort-toradol IV given 6. Zofran given in the ER to help with nausea 7. Report and care transitioned to Ritchie SOFIA. <Ritchie Bueno W - Last Filed: 12/20/19 01:20> ED HPI GENERAL MEDICAL PROBLEM Left Middle Abdomen Pain Score (Numeric/FACES): 8 Course - Vital Signs Last Recorded V/S: Last Vital Signs Temp 36.9 C 12/19/19 18:30 Pulse 126 H 12/19/19 18:30 Resp 16 12/19/19 18:30 BP 152/100 H 12/19/19 18:30 Pulse Ox 97 12/19/19 18:30 - Orders/Labs/Meds Orders: Active Orders 24 hr Category Date Time Status Peripheral IV Insertion Adult [OM.PC] Stat Oth 12/19/19 18:30 Ordered Labs: Laboratory Tests 12/19/19 12/19/19 12/19/19 Range/Units 18:35 18:35 18:35 WBC 11.8 H (4.0-10.0) x10^3/uL RBC 4.73 (4.00-5.50) x10^6/uL Hgb 14.6 (12.0-16.0) g/dL Hct 42.9 (33.0-47.0) % MCV 90.7 (78.0-93.0) fL MCH 30.9 (26.0-32.0) pg MCHC 34.0 (32.0-36.0) g/dL RDW Coeff of Cameron 12.6 (10.0-15.0) % Plt Count 335 (130-400) x10^3/uL Neut % (Auto) 61.1 (50.0-80.0) % Lymph % (Auto) 33.0 (25.0-50.0) % O'Brien % (Auto) 5.3 (2.0-11.0) % Eos % (Auto) 0.3 (0.0-4.0) % Baso % (Auto) 0.3 (0.2-1.2) % Sodium 137 (136-145) mmol/L Potassium 3.7 (3.5-5.1) mmol/L Chloride 100 (98-107) mmol/L Carbon Dioxide 25 (21-32) mmol/L Anion Gap 15.7 (10-20) mmol/L BUN 12 (7-18) mg/dL Creatinine 0.9 (0.55-1.02) mg/dL Est Cr Clr Drug Dosing TNP Estimated GFR (MDRD) > 60 Glucose 109 H (74-106) mg/dL Calcium 9.5 (8.5-10.1) mg/dL Corrected Calcium 9.58 (8.5-10.1) mg/dL Total Bilirubin 0.3 (0.2-1.0) mg/dL AST 13 L (15-37) U/L ALT 30 (14-59) U/L Alkaline Phosphatase 124 H (46-116) U/L C-Reactive Protein 0.6 (<=0.9) mg/dL Total Protein 7.5 (6.4-8.2) g/dL Albumin 3.9 (3.4-5.0) g/dL Globulin 3.6 Albumin/Globulin Ratio 1.08 Urine Color Dark yellow H (YELLOW) Urine Appearance Slightly cloudy H (CLEAR) Urine pH 6.0 (5.0-8.0) Ur Specific [place] 1.025 Urine Protein Negative (NEGATIVE) mg/dL Urine Glucose (UA) Negative (NEGATIVE) mg/dL Urine Ketones Negative (NEGATIVE) mg/dL Urine Occult Blood Negative (NEGATIVE) Urine Nitrite Negative (NEGATIVE) Urine Bilirubin Negative (NEGATIVE) Urine Urobilinogen 0.2 (0.2) EU/dL Ur Leukocyte Esterase Negative (NEGATIVE) Meds: Medications Discontinued Medications Generic Name Dose Route Start Last Admin Trade Name Freq PRN Reason Stop Dose Admin Hydrocodone Bitart/Acetaminophen 1 packet 12/19/19 19:43 12/19/19 19:51 Take Home: Acetam/Hydrocodon 325-5 Mg, 5 Pack PO 12/19/19 19:44 1 packet ONETIME ONE Administration Hydromorphone HCl 1 mg 12/19/19 19:26 12/19/19 19:33 Dilaudid IVPUSH 12/19/19 19:27 1 mg ONETIME ONE Administration Sodium Chloride 1,000 mls @ 1,000 mls/hr 12/19/19 18:32 12/19/19 18:43 Normal Saline IV 12/19/19 19:31 1,000 mls/hr ONETIME ONE Administration Iopamidol 100 ml 12/19/19 18:48 12/19/19 19:07 Isovue-300 (61%) IVPUSH 12/19/19 18:49 100 ml ONETIME ONE Administration Ketorolac Tromethamine 15 mg 12/19/19 18:32 12/19/19 18:43 Toradol IVPUSH 12/19/19 18:33 15 mg ONETIME ONE Administration Ondansetron HCl 4 mg 12/19/19 18:32 12/19/19 18:43 Zofran IVPUSH 12/19/19 18:33 4 mg ONETIME ONE Administration Sodium Chloride 10 ml 12/19/19 18:30 Saline Flush FLUSH ASDIRECTED PRN Keep Vein Open - Radiology Interpretation Free Text/Narrative:: CT abdomen and pelvis were obtained with contrast and were negative for acute pathology. - Re-Assessments/Exams Free Text/Narrative Re-Assessment/Exam: Pt reported significant improvement with IV dilaudid and toradol. Departure - Departure Time of Disposition: 20:00 Sepsis Event Note (ED) - Focused Exam Vital Signs: Vital Signs Temp Pulse Resp BP Pulse Ox 12/19/19 18:30 36.9 C 126 H 16 152/100 H 97
[2019-12-19] MEDS ORDERED: Iopamidol 612 MG/ML 100 ML Bottle IVPUSH ONE (18:48)
[2019-12-19 19:15] VITALS: BP 152/100; PULSE 126
[2019-12-19] MEDS ORDERED: HYDROmorphone 1 MG/ML Syringe IVPUSH ONE (19:26)
[2019-12-19 19:33] LABS: ANION GAP 15.7 mmol/L (10-20); CHLORIDE,CL 100 mmol/L (98-107); SODIUM,NA 137 mmol/L (136-145)
--- NOTE | 2019-12-19 19:35 | CT ---
[id number] CT/CT Abdomen Pelvis W IV EXAM: CT Abdomen Pelvis W IV CLINICAL DATA: ABDOMEN LEFT FLANK PAIN COMPARISON STUDY: 06/15/2019 FINDINGS: Lung bases are clear. The gallbladder is surgically absent. The liver, spleen, pancreas, adrenal glands and kidneys are unremarkable. No bowel obstruction or inflammation. Colonic diverticulosis without evidence of acute diverticulitis. No lymphadenopathy, free fluid, or pneumoperitoneum. Scattered changes of spondylosis the spine. No fracture or osseous lesion. IMPRESSION: No acute CT findings within the abdomen or pelvis to explain the patient's symptoms. Kali Asif DO 12/19/19 1935 Thank you for allowing us to participate in the care of your patient.
[2019-12-19] MEDS ORDERED: Take Home: Acetaminophen/HYDROcodone 325-5 MG, 5 Tab Pack PO ONE (19:43)
== END 2019-12-19 20:33 | disposition home or self-care (01) ==
LOC: VM.ED 18:25
DX: R10.9 Unspecified abdominal pain (principal); K21.9 Gastro-esophageal reflux disease without esophagitis; E66.9 Obesity, unspecified; F41.0 Panic disorder [episodic paroxysmal anxiety]; F32.9 Major depressive disorder, single episode, unspecified; F43.10 Post-traumatic stress disorder, unspecified; Z90.49 Acquired absence of other specified parts of digestive tract; Z90.710 Acquired absence of both cervix and uterus; Z68.38 Body mass index [BMI] 38.0-38.9, adult; Z88.8 Allergy status to other drugs, medicaments and biological substances; Z79.899 Other long term (current) drug therapy
CPT/HCPCS: 74177; 80053; 81003; 85025; 86140; 96361; 96374; 96375; 99284; 99284-25; A9270-GY; J1170; J1885; J2405; J7030; Q9967

== ENCOUNTER 2020-02-06 14:09 | Emergency (ER) | payer MEDICAID ==
[2020-02-06] MEDS: Piperacillin/Tazobactam 3.375 GM in Sodium Chloride 0.9% 100 ML IV ONE (14:53)
[2020-02-06] MEDS: Morphine 4 MG/ML Syringe IVPUSH ONE ×2 (14:54→16:21)
[2020-02-06] MEDS: Ondansetron 4 MG/2 ML SDV IVPUSH ONE (15:01)
[2020-02-06 15:07] LABS: CHLORIDE,CL 100 mmol/L (98-107); SODIUM,NA 136 mmol/L (136-145)
[2020-02-06 15:08] LABS: ANION GAP 11.6 mmol/L (10-20)
[2020-02-06] MEDS: Iopamidol 612 MG/ML 100 ML Bottle IVPUSH ONE (15:55)
[2020-02-06 16:03] VITALS: BP 135/84; PULSE 115
--- NOTE | 2020-02-06 16:20 | CT ---
[id number] CT/CT Neck Soft Tissue W IV EXAM: SOFT TISSUE NECK CT WITH CONTRAST INDICATION: ABSCESS TOOTH, LEFT-SIDED FACIAL SWELLING. COMPARISON: None. DISCUSSION: The parotid, submandibular and thyroid glands are normal in appearance. The airway and digestive tract mucosa are unremarkable. There are multiple prominent cervical lymph nodes. For example there is a level 2 lymph node on the left measuring 1.0 cm in short axis (series 3 image 45. The imaged skull base and upper chest are unremarkable. There is soft tissue edema and inflammatory change involving the left face. No drainable fluid collection is identified. No suspicious osseous lesions. IMPRESSION: 1. Soft tissue edema and inflammatory change involving the superficial soft tissues of the left face. No fluid collection to suggest abscess. 2. Bilateral cervical adenopathy, nonspecific. Kali Asif DO 02/06/20 [id number] Thank you for allowing us to participate in the care of your patient.
[2020-02-06] MEDS: Sodium Chloride 0.9% 10 ML Syringe FLUSH PRN (16:21)
[2020-02-06] MEDS: Take Home: Acetaminophen/HYDROcodone 325-10 MG, 5 Tab Pack PO ONE (16:46)
--- NOTE | 2020-02-06 16:49 | EDM.PDOC ---
ED HPI GENERAL MEDICAL PROBLEM - General Chief Complaint: ENT Problem Stated Complaint: ABSCESS TOOTH Time Seen by Provider: 02/06/20 15:58 Source of Information: Reports: Patient History Limitations: Reports: No Limitations - History of Present Illness INITIAL COMMENTS - FREE TEXT/NARRATIVE: Pt. presents to ER with complaints of dental pain locate in area of L lower jaw. Pt. states that she has a history of poor dentition and dental caries. She states that she started having discomfort on . She states that today, the discomfort is much worse. Her L side of he face is exquisitely tender and much more swollen in the past 12 hours or so. Denies any fever or chills. Denies any problems with swallowing or managing her secretions of her mouth. Denies any headache or facial pain other than to her L lower jaw area. Denies any chest pain or shortness of breath. Onset Date: 02/03/20 Location: Reports: Face Associated Symptoms: Reports: Other Left Face/Facial Pain Score (Numeric/FACES): 7 - Related Data Allergies Allergy/AdvReac Type Severity Reaction Status Date / Time methylprednisolone AdvReac Hallucinati Verified 02/06/20 16:10 ons Home Meds: Home Meds ARIPiprazole [Abilify] 5 mg PO DAILY 07/03/18 [History] Pantoprazole [ProTONIX] 40 mg PO DAILY 07/03/18 [History] Estrogens, Conjugated [Premarin] 1.25 mg PO DAILY 01/21/20 [History] Rizatriptan Benzoate [Rizatriptan] 10 mg PO ASDIRECTED 01/21/20 [History] Citalopram [Citalopram HBr] 20 mg PO DAILY 02/01/20 [History] Cyclobenzaprine [Flexeril] 5 mg PO TID 02/01/20 [History] traMADol [Ultram] 50 mg PO BID PRN 30 Days #60 tablet 02/01/20 [Rx] Past Medical History HEENT History: Reports: Impaired Vision, Other (See Below) Other HEENT History: wears glasses Gastrointestinal History: Reports: GERD Musculoskeletal History: Reports: Back Pain, Chronic Neurological History: Reports: Migraines, Seizure, Other (See Below) Other Neuro History: seizure after starting tramadol Psychiatric History: Reports: Anxiety, Depression, Panic Attack, PTSD Endocrine/Metabolic History: Reports: Obesity/BMI 30+ Immunologic History: Reports: None Oncologic (Cancer) History: Reports: None - Infectious Disease History Infectious Disease History: Reports: Chicken Pox - Past Surgical History GI Surgical History: Reports: Appendectomy, Cholecystectomy, Colonoscopy, EGD Female Surgical History: Reports: Section, Hysterectomy, Salpingo-Oophorectomy Other Musculoskeletal Surgeries/Procedures:: fracture, right arm Social & Family History - Family History Family Medical History: Noncontributory : Reports: Other (See Below) Other Musculoskeletal Family History: mother: fibromyalgia Psychiatric: Reports: Depression Other Psychiatric Family History: mother: depression Other Endocrine/Metabolic Family History: brother: obesity Other Oncologic Family History: father: throat cancer - Caffeine Use Caffeine Use: Reports: None Caffeine Use Comment: Patient states she rarely uses caffeine - Living Situation & Occupation Living situation: Reports: (2 children 1 boy 1 girl) 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[employer]) ED ROS GENERAL - Review of Systems Review Of Systems: See Below Constitutional: Reports: No Symptoms HEENT: Reports: Dental Pain Respiratory: Reports: No Symptoms Cardiovascular: Reports: No Symptoms Endocrine: Reports: No Symptoms GI/Abdominal: Reports: No Symptoms : Reports: No Symptoms Musculoskeletal: Reports: No Symptoms Skin: Reports: No Symptoms Neurological: Reports: No Symptoms Psychiatric: Reports: No Symptoms Hematologic/Lymphatic: Reports: No Symptoms Immunologic: Reports: No Symptoms ED EXAM, GENERAL - Physical Exam Exam: See Below General Appearance: Alert, WD/WN, No Apparent Distress Nose: Normal Inspection, Normal Mucosa, No Blood Throat/Mouth: Other (significant edema to L lower jaw/buccal area. Numerous dental caries noted to the teeth. No obvious large abscess noted. The edema, however, is quite firm to the touch. No edema to the hypopharynx. Uvula is midline. She does have prominent bilateral cervical lymph nodes. ) Head: Atraumatic, Normocephalic Neck: Lymphadenopathy (L), Lymphadenopathy (R) Respiratory/Chest: No Respiratory Distress, Lungs Clear, No Accessory Muscle Use, Chest Non-Tender Cardiovascular: Normal Peripheral Pulses, Regular Rate, Rhythm, No Edema, No JVD Neurological: Alert, Oriented, CN II-XII Intact, No Motor/Sensory Deficits Psychiatric: Normal Affect, Anxious, Tearful Skin Exam: Warm, Dry, Intact, Normal Color Course - Vital Signs Last Recorded V/S: Last Vital Signs Temp 36.2 C 02/06/20 15:58 Pulse 115 H 02/06/20 15:58 Resp 16 02/06/20 15:58 BP 135/84 02/06/20 15:58 Pulse Ox 98 02/06/20 15:58 - Orders/Labs/Meds Orders: Active Orders 24 hr Category Date Time Status CULTURE BLOOD [BC] Stat Lab 02/06/20 14:40 Results CULTURE BLOOD [BC] Stat Lab 02/06/20 14:53 Received Sodium Chloride 0.9% [Saline Flush] Med 02/06/20 14:30 Active 10 ml FLUSH ASDIRECTED PRN Blood Culture x2 Reflex Set [OM.PC] Stat Oth 02/06/20 14:30 Ordered Peripheral IV Insertion Adult [OM.PC] Routine Oth 02/06/20 14:30 Ordered Medication Orders Sodium Chloride (Saline Flush) 10 ml FLUSH ASDIRECTED PRN PRN Reason: Keep Vein Open Last Admin: 02/06/20 16:21 Dose: 10 ml Documented by: CAROLANN Labs: Laboratory Tests 02/06/20 02/06/20 02/06/20 Range/Units 14:40 14:40 14:40 WBC 11.8 H (4.0-10.0) x10^3/uL RBC 4.72 (4.00-5.50) x10^6/uL Hgb 14.3 (12.0-16.0) g/dL Hct 43.2 (33.0-47.0) % MCV 91.5 (78.0-93.0) fL MCH 30.3 (26.0-32.0) pg MCHC 33.1 (32.0-36.0) g/dL RDW Coeff of Cameron 12.9 (10.0-15.0) % Plt Count 276 (130-400) x10^3/uL Neut % (Auto) 73.6 (50.0-80.0) % Lymph % (Auto) 19.1 L (25.0-50.0) % [place] % (Auto) 6.7 (2.0-11.0) % Eos % (Auto) 0.3 (0.0-4.0) % Baso % (Auto) 0.3 (0.2-1.2) % PT 9.9 (9.5-12.3) SEC INR 0.9 L (2.0-3.5) Sodium 136 (136-145) mmol/L Potassium 3.6 (3.5-5.1) mmol/L Chloride 100 (98-107) mmol/L Carbon Dioxide 28 (21-32) mmol/L Anion Gap 11.6 (10-20) mmol/L BUN 9 (7-18) mg/dL Creatinine 0.8 (0.55-1.02) mg/dL Est Cr Clr Drug Dosing TNP Estimated GFR (MDRD) > 60 Glucose 146 H (74-106) mg/dL Lactic Acid (0.4-2.0) mmol/L Calcium 9.1 (8.5-10.1) mg/dL Corrected Calcium 9.34 (8.5-10.1) mg/dL Total Bilirubin 0.4 (0.2-1.0) mg/dL AST 15 (15-37) U/L ALT 24 (14-59) U/L Alkaline Phosphatase 144 H (46-116) U/L C-Reactive Protein 10.5 H (<=0.9) mg/dL Total Protein 7.9 (6.4-8.2) g/dL Albumin 3.7 (3.4-5.0) g/dL Globulin 4.2 Albumin/Globulin Ratio 0.88 02/06/20 Range/Units 14:40 WBC (4.0-10.0) x10^3/uL RBC (4.00-5.50) x10^6/uL Hgb (12.0-16.0) g/dL Hct (33.0-47.0) % MCV (78.0-93.0) fL MCH (26.0-32.0) pg MCHC (32.0-36.0) g/dL RDW Coeff of Cameron (10.0-15.0) % Plt Count (130-400) x10^3/uL Neut % (Auto) (50.0-80.0) % Lymph % (Auto) (25.0-50.0) % [place] % (Auto) (2.0-11.0) % Eos % (Auto) (0.0-4.0) % Baso % (Auto) (0.2-1.2) % PT (9.5-12.3) SEC INR (2.0-3.5) Sodium (136-145) mmol/L Potassium (3.5-5.1) mmol/L Chloride (98-107) mmol/L Carbon Dioxide (21-32) mmol/L Anion Gap (10-20) mmol/L BUN (7-18) mg/dL Creatinine (0.55-1.02) mg/dL Est Cr Clr Drug Dosing Estimated GFR (MDRD) Glucose (74-106) mg/dL Lactic Acid 1.7 (0.4-2.0) mmol/L Calcium (8.5-10.1) mg/dL Corrected Calcium (8.5-10.1) mg/dL Total Bilirubin (0.2-1.0) mg/dL AST (15-37) U/L ALT (14-59) U/L Alkaline Phosphatase (46-116) U/L C-Reactive Protein (<=0.9) mg/dL Total Protein (6.4-8.2) g/dL Albumin (3.4-5.0) g/dL Globulin Albumin/Globulin Ratio Meds: Medications Generic Name Dose Route Start Last Admin Trade Name Freq PRN Reason Stop Dose Admin Sodium Chloride 10 ml 02/06/20 14:30 02/06/20 16:21 Saline Flush FLUSH 10 ml ASDIRECTED PRN Administration Keep Vein Open Discontinued Medications Generic Name Dose Route Start Last Admin Trade Name Freq PRN Reason Stop Dose Admin Hydrocodone Bitart/Acetaminophen 2 packet 02/06/20 16:33 Take Home: Acetaminophen/Hydrocodone 325-10mg PO 02/06/20 16:34 ONETIME ONE Piperacillin Sod/Tazobactam 100 mls @ 200 mls/hr 02/06/20 14:45 02/06/20 14:53 Sod 3.375 gm/ Sodium Chloride IV 02/06/20 15:14 200 mls/hr STAT ONE Administration Iopamidol 100 ml 02/06/20 15:42 02/06/20 15:55 Isovue-300 (61%) IVPUSH 02/06/20 15:43 100 ml ONETIME ONE Administration Morphine Sulfate 4 mg 02/06/20 14:46 02/06/20 14:54 Morphine IVPUSH 02/06/20 14:47 4 mg ONETIME ONE Administration Morphine Sulfate 4 mg 02/06/20 16:16 02/06/20 16:21 Morphine IVPUSH 02/06/20 16:17 4 mg ONETIME ONE Administration Ondansetron HCl 4 mg 02/06/20 14:58 02/06/20 15:01 Zofran IVPUSH 02/06/20 14:59 4 mg ONETIME ONE Administration - Radiology Interpretation Free Text/Narrative:: CT soft tissue face and neck reveals soft tissue edema and inflammatory change involving the superficial soft tissues of the left face. No fluid collection to suggest abscess. Bilateral cervical lymphadenopathy noted. - Re-Assessments/Exams Free Text/Narrative Re-Assessment/Exam: Pt. was given 3.375gm zosyn IV in ER. Pain was treated with IV morphine. Pt. will return to ER as an outpatient tonight at 2100 and tomorrow AM at 0300 for zosyn 3.375gm IV. Will reevaluate to see if she should continue with the IV antibiotics or be transitioned to oral augmentin. Departure - Departure Time of Disposition: 16:53 Disposition: Home, Self-Care 01 Clinical Impression: Dental abscess, Facial cellulitis - Discharge Information Instructions: Acetaminophen; Hydrocodone tablets or capsules, Piperacillin; Tazobactam injection, Dental Abscess, [id number], Probiotics Referrals: Rommel Huynh PA-C [Primary Care Provider] - Forms: ED Department Discharge Additional Instructions: [place] 10/325mg 1 every 4-6 hours as needed for pain Return to ER at 9PM tonight for second dose of zosyn. The medication is given every 6 hours. Return to ER at 3AM for your third dose of zosyn. I will reevaluate you then and see where we go from there. Follow-up with dentist of choice once the infection has cleared. Will start the patient on Augmentin 875mg 1 twice daily for 10 days once she is transitioned off of zosyn. Blood cultures were obtained. She did have an elevated CRP and white count. Lactic acid was within normal limits. She was advised to sleep with her head elevated, or sleep in a chair to decrease swelling to the area. Return to ER sooner if having troubles breathing, swallowing, or if unable to hold down fluids. Sepsis Event Note (ED) - Evaluation Sepsis Screening Result: No Definite Risk - Focused Exam Vital Signs: Vital Signs Temp Pulse Resp BP Pulse Ox 02/06/20 15:58 36.2 C 115 H 16 135/84 98 - My Orders Last 24 Hours: My Active Orders 02/06/20 14:30 Sodium Chloride 0.9% [Saline Flush] 10 ml FLUSH ASDIRECTED PRN Blood Culture x2 Reflex Set [OM.PC] Stat Peripheral IV Insertion Adult [OM.PC] Routine 02/06/20 14:40 CULTURE BLOOD [BC] Stat 02/06/20 14:53 CULTURE BLOOD [BC] Stat - Assessment/Plan Last 24 Hours: My Active Orders 02/06/20 14:30 Sodium Chloride 0.9% [Saline Flush] 10 ml FLUSH ASDIRECTED PRN Blood Culture x2 Reflex Set [OM.PC] Stat Peripheral IV Insertion Adult [OM.PC] Routine 02/06/20 14:40 CULTURE BLOOD [BC] Stat 02/06/20 14:53 CULTURE BLOOD [BC] Stat
== END 2020-02-06 16:50 | disposition home or self-care (01) ==
LOC: VM.ED 14:09
DX: K04.7 Periapical abscess without sinus (principal); K02.9 Dental caries, unspecified; L03.211 Cellulitis of face; K21.9 Gastro-esophageal reflux disease without esophagitis; F41.9 Anxiety disorder, unspecified; F32.9 Major depressive disorder, single episode, unspecified; E66.9 Obesity, unspecified; Z68.38 Body mass index [BMI] 38.0-38.9, adult; Z88.8 Allergy status to other drugs, medicaments and biological substances
CPT/HCPCS: 36415; 70491; 80053; 83605; 85025; 85610; 86140; 87040; 96365; 96375; 96376; 99284; 99284-25; A9270-GY; J2270; J2405; J2543; J7050; Q9967

== ENCOUNTER 2020-02-08 21:54 | Emergency (ER) | payer MEDICAID ==
[2020-02-08] MEDS ORDERED: Bupivacaine 0.5% 30 ML SDV INJECT PRN (21:55)
[2020-02-08] MEDS ORDERED: Lidocaine 1% with EPINEPHrine 1:100,000 20 ML MDV INFILT STA (21:55)
--- NOTE | 2020-02-08 22:09 | EDM.PDOC ---
ED HPI GENERAL MEDICAL PROBLEM - General Stated Complaint: ER Time Seen by Provider: 02/08/20 21:55 Source of Information: Reports: Patient History Limitations: Reports: No Limitations - History of Present Illness INITIAL COMMENTS - FREE TEXT/NARRATIVE: Patient comes emergency department today initially for an outpatient IV antibiotic therapy for an abscess of the left lower dental region. This patient has been receiving outpatient IV antibiotic therapy for a left lower mandible abscess since 02-06-20. She has been receiving every 6 hour Zosyn. She has had some improvement of the swelling but it is still difficult for her to open her mouth. I did change the patient to a ER patient due to my concerns of an abscess that has formed. She has not had any fever or chills. No nausea or vomiting. No breathing difficulty. No difficulty swallowing. No drooling. She can barely open her mouth. She has been taking the Augmentin that she was started on earlier today but she was continued on the IV Zosyn at the same time. She has had quite a bit of difficulty with the Augmentin as she has a peptic ulcer and has had quite a bit of nausea and abdominal pain and cramping with this. She is planning to see a dentist in the next couple of days for the extraction of this tooth. But really she has had minimal improvement and is still quite uncomfortable. Right Face/Facial Pain Score (Numeric/FACES): 7 - Related Data Allergies Allergy/AdvReac Type Severity Reaction Status Date / Time methylprednisolone AdvReac Hallucinati Verified 02/07/20 04:48 ons Home Meds: Home Meds ARIPiprazole [Abilify] 5 mg PO DAILY 07/03/18 [History] Pantoprazole [ProTONIX] 40 mg PO DAILY 07/03/18 [History] Estrogens, Conjugated [Premarin] 1.25 mg PO DAILY 01/21/20 [History] Rizatriptan Benzoate [Rizatriptan] 10 mg PO ASDIRECTED 01/21/20 [History] Citalopram [Citalopram HBr] 20 mg PO DAILY 02/01/20 [History] Cyclobenzaprine [Flexeril] 5 mg PO TID 02/01/20 [History] traMADol [Ultram] 50 mg PO BID PRN 30 Days #60 tablet 02/01/20 [Rx] Hydrocodone/Acetaminophen [[place] 10-325 Tablet] 1 tab PO Q6H PRN 02/07/20 [History] Clindamycin HCl 300 mg PO Q6HR #28 capsule 02/08/20 [Rx] Past Medical History HEENT History: Reports: Impaired Vision, Other (See Below) Other HEENT History: wears glasses Gastrointestinal History: Reports: GERD Musculoskeletal History: Reports: Back Pain, Chronic Neurological History: Reports: Migraines, Seizure, Other (See Below) Other Neuro History: seizure after starting tramadol Psychiatric History: Reports: Anxiety, Depression, Panic Attack, PTSD Endocrine/Metabolic History: Reports: Obesity/BMI 30+ Immunologic History: Reports: None Oncologic (Cancer) History: Reports: None - Infectious Disease History Infectious Disease History: Reports: Chicken Pox - Past Surgical History GI Surgical History: Reports: Appendectomy, Cholecystectomy, Colonoscopy, EGD Female Surgical History: Reports: Section, Hysterectomy, Salpingo- Oophorectomy Other Musculoskeletal Surgeries/Procedures:: fracture, right arm Social & Family History - Family History Family Medical History: Noncontributory : Reports: Other (See Below) Other Musculoskeletal Family History: mother: fibromyalgia Psychiatric: Reports: Depression Other Psychiatric Family History: mother: depression Other Endocrine/Metabolic Family History: brother: obesity Other Oncologic Family History: father: throat cancer - Caffeine Use Caffeine Use: Reports: None Caffeine Use Comment: Patient states she rarely uses caffeine - Living Situation & Occupation Living situation: Reports: (2 children 1 boy 1 girl) 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 This is soft and fluctuant. Quite concerning for an abscess. There is no area of swelling or abscess on the medial part of the mandible or under the tongue. There is no breaks in the skin or drainage in the oropharynx.), Gum Swelling (Left lower mandible), Trismus (Patient is only able to open her mouth about the width of her index finger.). No: Bleeding, Dental Trauma, Drooling, Peritonsillar Mass, Pharyngeal Erythema, Tongue Swelling, Tonsillar Erythema, Tonsillar Exudates, Tonsillar Swelling, Uvular Deviation, Uvular Edema Head: Atraumatic, Normocephalic, Facial Swelling (The patient has quite a bit of swelling over the left cheek. There is no erythema induration. There is no breaks in the skin on the external aspect of the cheek or the internal mucosa. This is very hard indurated no fluctuance concerning for abscess of the mucosa.) Neck: Normal Inspection Respiratory/Chest: No Respiratory Distress Cardiovascular: Normal Peripheral Pulses Psychiatric: Anxious Skin: Warm, Dry, Intact, Normal Color Course - Vital Signs Last Recorded V/S: Last Vital Signs Temp 97.9 F 02/08/20 22:00 Pulse 117 H 02/08/20 22:00 Resp 16 02/08/20 22:00 BP 159/102 H 02/08/20 22:00 Pulse Ox 97 02/08/20 22:00 - Orders/Labs/Meds Orders: Active Orders 24 hr Category Date Time Status Bupivacaine 0.5% [Marcaine 0.5%] Med 02/08/20 21:55 Active 30 ml INJECT ASDIRECTED PRN Medication Orders Bupivacaine HCl (Marcaine 0.5%) 30 ml INJECT ASDIRECTED PRN PRN Reason: Other Last Admin: 02/08/20 22:22 Dose: 30 ml Documented by: MC Meds: Medications Generic Name Dose Route Start Last Admin Trade Name Freq PRN Reason Stop Dose Admin Bupivacaine HCl 30 ml 02/08/20 21:55 02/08/20 22:22 Marcaine 0.5% INJECT 30 ml ASDIRECTED PRN Administration Other Discontinued Medications Generic Name Dose Route Start Last Admin Trade Name Freq PRN Reason Stop Dose Admin Chlorhexidine Gluconate 30 ml 02/08/20 22:31 02/08/20 22:40 Peridex 0.12% Rinse MUCMEM 02/08/20 22:32 Not Given NOW STA Lidocaine/Epinephrine 20 ml 02/08/20 21:55 02/08/20 22:22 Xylocaine 1% With Epinephrine 1:100,000 INFILT 02/08/20 21:56 20 ml ONETIME STA Administration - Re-Assessments/Exams Free Text/Narrative Re-Assessment/Exam: 02/09/20 I did review the CT results from earlier in the week that did not identify any abscess. Although I have quite a bit of concern as the patient's clinical picture has not improved as it should with the administration of the Zosyn. On clinical exam there is clearly an abscess on the lateral aspect of the mandible at the premolar region. I discussed at length with the patient my concerns for an abscess and I think her clinical situation will improve much faster if we open up and drain this area of abscess. Her questions are answered. Verbal consent was obtained for an incision and drainage of the left lower mandible abscess as well as a left inferior alveolar block. 1% lidocaine with epinephrine and 0.5% bupivacaine without epinephrine was mixed in a 50-50 fashion. After the site of the left inferior alveolar block was identified. I instilled 3 mils of the above solution at the site of the block without any blood return. The patient tolerated the procedure well. She had moderate improvement of the pain. I then injected at the site of the abscess 2 mils of the above mixture as well. A small crucifix stab incision was made in the soft tissues and immediate large amount of very foul-smelling purulent discharge that actually had some brown discharge as well. I was able to milk the area of the abscess and get quite a bit more of the drainage removed from the jaw. There is a small amount of bleeding. The patient tolerated the procedure well. After the incision and drainage of the abscess the patient is able to open her mouth about 3 times as far as she did previously. Although I have not been happy with the patient's clinical improvement over the past couple of days with the IV antibiotics I think this is primarily due to the abscess that has not been drained. She is not tolerating the Augmentin due to the side effects of the GI concerns. I will put her on clindamycin 300 mg p.o. 4 times daily. She still needs to see her dentist as soon as possible. I will discontinue the outpatient IV antibiotics as I do not feel that it is warranted at this time as she has clinical improvement and I think she is can have quite a bit more in the next 24 to 48 hours with the drainage of this abscess. We will also have her use chlorhexidine mouthwash for the next 24 to 48 hours if anything new or worse she is to call me or return to the emergency department. She needs to see a dentist as soon as possible. She is understanding of this and her questions are answered. Departure - Departure Time of Disposition: 22:30 Disposition: Home, Self-Care 01 Clinical Impression: Dental abscess - Discharge Information Prescriptions: Clindamycin HCl 300 mg PO Q6HR #28 capsule Instructions: Dental Abscess, [id number] Referrals: Rommel Huynh PA-C [Primary Care Provider] - Additional Instructions: Stop the Augmentin. Start Clindamycin 300mg 4 times a day for the next 7 days. Rx to [facility]. Chlorhexidine mouth wash supplied from the ED 2-3 times a day and then OTC mouth wash without Alcohol until healed. See your DENTIST YONI. OTC pro-biotics yogurts with the anti-biotics. Return to the ED if new or worsening symptoms. Fever, inability or difficulty swallowing or unable to keep meds down. Sepsis Event Note (ED) - Focused Exam Vital Signs: Vital Signs Temp Pulse Resp BP Pulse Ox 02/08/20 22:00 97.9 F 117 H 16 159/102 H 97 - My Orders Last 24 Hours: My Active Orders 02/08/20 21:55 Bupivacaine 0.5% [Marcaine 0.5%] 30 ml INJECT ASDIRECTED PRN - Assessment/Plan Last 24 Hours: My Active Orders 02/08/20 21:55 Bupivacaine 0.5% [Marcaine 0.5%] 30 ml INJECT ASDIRECTED PRN
[2020-02-08] MEDS ORDERED: Chlorhexidine Gluconate 0.12% Oral Rinse 15 ML Cup MUCMEM STA (22:31)
[2020-02-08 23:12] VITALS: BP 159/102; PULSE 117
== END 2020-02-08 22:45 | disposition home or self-care (01) ==
LOC: VM.ED 21:54
DX: K04.7 Periapical abscess without sinus (principal); K21.9 Gastro-esophageal reflux disease without esophagitis; F41.9 Anxiety disorder, unspecified; F32.9 Major depressive disorder, single episode, unspecified; E66.9 Obesity, unspecified; Z68.38 Body mass index [BMI] 38.0-38.9, adult; Z88.8 Allergy status to other drugs, medicaments and biological substances; Z79.899 Other long term (current) drug therapy
CPT/HCPCS: 41800; 99283; 99283-25; J3490

== ENCOUNTER 2020-07-22 13:46 | Emergency (ER) | payer MEDICAID ==
[2020-07-22] MEDS ORDERED: Sodium Chloride 0.9% 10 ML Syringe FLUSH PRN (13:53)
[2020-07-22] MEDS ORDERED: Ondansetron 4 MG/2 ML SDV IVPUSH ONE (13:55)
[2020-07-22] MEDS ORDERED: Sodium Chloride 0.9% 1,000 ML IV SCH (14:00)
[2020-07-22] MEDS ORDERED: LORazepam 2 MG/ML SDV IVPUSH ONE (14:19)
[2020-07-22 14:43] LABS: ANION GAP 17.1 mmol/L (5-15); CHLORIDE,CL 103 mmol/L (98-107); SODIUM,NA 141 mmol/L (136-145)
[2020-07-22] MEDS ORDERED: Ketorolac 15 MG/ML SDV IVPUSH ONE (15:16)
[2020-07-22] MEDS ORDERED: Morphine 4 MG/ML Syringe IVPUSH ONE (15:16)
[2020-07-22] MEDS ORDERED: Prochlorperazine 10 MG/2 ML SDV IV ONE (15:19)
[2020-07-22 15:46] VITALS: BP 115/74; PULSE 135
[2020-07-22] MEDS ORDERED: Iopamidol 612 MG/ML 100 ML Bottle IVPUSH ONE (15:53)
--- NOTE | 2020-07-22 16:00 | CT ---
[id number] CT/CT Abdomen Pelvis W IV EXAM: CT Abdomen Pelvis W IV CLINICAL DATA: ABDOMINAL PAIN COMPARISON: CORRELATION IS MADE WITH 2019 FINDINGS: The gallbladder, uterus, ovaries, and appendix apparently have been removed There is minimal bowel distention. There is minimal thickening of the bowel wall. There is minimal edema in the mesenteric fat. The liver and spleen, kidneys and adrenals, pancreas and aorta are unremarkable otherwise The pelvis shows no mass, adenopathy abscess, or free fluid. There is no free air IMPRESSION: PROBABLE ENTERITIS. Baldev Woody MD 07/22/20 3033 Thank you for allowing us to participate in the care of your patient.
[2020-07-22] MEDS ORDERED: Sodium Chloride 0.9% 1,000 ML IV ONE (16:26)
[2020-07-22] MEDS ORDERED: Take Home: Ondansetron 4 MG Tab.DIS, 2 Tab Pack PO ONE (16:28)
--- NOTE | 2020-07-23 03:49 | EDM.PDOC ---
ED HPI GENERAL MEDICAL PROBLEM - General Chief Complaint: Gastrointestinal Problem Stated Complaint: VOMITING Time Seen by Provider: 07/22/20 13:50 Source of Information: Reports: Patient History Limitations: Reports: No Limitations - History of Present Illness INITIAL COMMENTS - FREE TEXT/NARRATIVE: Pt. presents to ER with complaints of nausea, vomiting, abdominal cramping, and diarrhea. Pt. states that she has been exposed to a family member with similar problems. She is unable to hold down any fluids. Denies any bloody diarrhea. No recent hospitalizations. Denies any fever or chills. Pt. denies any chest pain or shortness of breath. No throat discomfort. No congestion or cough. Pt. has had numerous abdominal surgeries including appendectomy, cholecystectomy, total hysterectomy. Pt. states that she is passing gas and can feel her bowels move. Onset: Today Location: Reports: Abdomen Severity: Severe Right Middle Abdomen Pain Score (Numeric/FACES): 7 - Related Data Allergies Allergy/AdvReac Type Severity Reaction Status Date / Time methylprednisolone AdvReac Hallucinati Verified 07/22/20 14:04 ons Home Meds: Home Meds ARIPiprazole [Abilify] 5 mg PO DAILY 07/03/18 [History] Pantoprazole [ProTONIX] 40 mg PO DAILY 07/03/18 [History] Estrogens, Conjugated [Premarin] 1.25 mg PO DAILY 01/21/20 [History] Rizatriptan Benzoate [Rizatriptan] 10 mg PO ASDIRECTED 01/21/20 [History] Citalopram [Citalopram HBr] 20 mg PO DAILY 02/01/20 [History] Hydrocodone/Acetaminophen [[place] 10-325 Tablet] 1 tab PO Q6H PRN 02/07/20 [History] Clindamycin HCl 300 mg PO Q6HR #28 capsule 02/08/20 [Rx] Baclofen 10 mg PO TID PRN 15 Days #45 tablet 05/18/20 [Rx] traMADol [Ultram] 50 mg PO BID PRN 30 Days #60 tablet 05/18/20 [Rx] Past Medical History HEENT History: Reports: Impaired Vision, Other (See Below) Other HEENT History: wears glasses Gastrointestinal History: Reports: GERD Musculoskeletal History: Reports: Back Pain, Chronic Neurological History: Reports: Migraines, Seizure, Other (See Below) Other Neuro History: seizure after starting tramadol Psychiatric History: Reports: Anxiety, Depression, Panic Attack, PTSD Endocrine/Metabolic History: Reports: Obesity/BMI 30+ Immunologic History: Reports: None Oncologic (Cancer) History: Reports: None - Infectious Disease History Infectious Disease History: Reports: Chicken Pox - Past Surgical History GI Surgical History: Reports: Appendectomy, Cholecystectomy, Colonoscopy, EGD Other GI Surgeries/Procedures: adhesion removal Female Surgical History: Reports: Section, Hysterectomy, Salpingo- Oophorectomy Neurological Surgical History: Reports: None Other Musculoskeletal Surgeries/Procedures:: fracture, right arm Social & Family History - Family History Family Medical History: No Pertinent Family History : Reports: Other (See Below) Other Musculoskeletal Family History: mother: fibromyalgia Psychiatric: Reports: Depression Other Psychiatric Family History: mother: depression Other Endocrine/Metabolic Family History: brother: obesity Other Oncologic Family History: father: throat cancer - Tobacco Use Tobacco Use Status *Q: Current Every Day Tobacco User Years of Tobacco use: 20 Packs/Tins Daily: 0.5 - Caffeine Use Caffeine Use: Reports: None Caffeine Use Comment: Patient states she rarely uses caffeine - Living Situation & Occupation Living situation: Reports: (2 children 1 boy 1 girl) 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 Denies: Black Stool, Bloody Stool, Difficulty Swallowing, Distension, Hematemesis, Hematochezia, Melena, Mucous in Stool, Stool Incontinence : Reports: No Symptoms Musculoskeletal: Reports: No Symptoms Skin: Reports: No Symptoms Neurological: Reports: No Symptoms Psychiatric: Reports: No Symptoms ED EXAM, GENERAL - Physical Exam Exam: See Below Exam Limited By: No Limitations General Appearance: Alert, WD/WN Eye Exam: Bilateral Eye: EOMI, Normal Fundi, Normal Inspection Throat/Mouth: Normal Inspection, Normal Lips, Normal Teeth, Normal Gums, Normal Oropharynx, Normal Voice, No Airway Compromise Head: Atraumatic, Normocephalic Neck: Normal Inspection, Supple, Non-Tender, Full Range of Motion Respiratory/Chest: No Respiratory Distress, Lungs Clear, No Accessory Muscle Use, Chest Non-Tender Cardiovascular: Normal Peripheral Pulses, Regular Rate, Rhythm, No Edema, No JVD Peripheral Pulses: 4+: Radial (R) GI/Abdominal: Soft, Tender. No: Guarding, Rigid, Mass, Hepatomegaly, Splenomegaly (Female) Exam: Deferred Rectal (Female) Exam: Deferred Back Exam: Normal Inspection, Full Range of Motion Extremities: Normal Inspection, Normal Range of Motion, Normal Capillary Refill Neurological: Alert, Oriented, CN II-XII Intact, Normal Cognition, No Motor/Sensory Deficits Psychiatric: Normal Affect, Normal Mood Skin Exam: Warm, Dry, Intact, Normal Color Course - Vital Signs Last Recorded V/S: Last Vital Signs Temp 36.4 C 07/22/20 13:50 Pulse 135 H 07/22/20 15:40 Resp 18 07/22/20 15:40 BP 115/74 07/22/20 15:40 Pulse Ox 98 07/22/20 15:40 - Orders/Labs/Meds Orders: Active Orders 24 hr Category Date Time Status Peripheral IV Insertion Adult [OM.PC] Routine Oth 07/22/20 13:53 Ordered Labs: Laboratory Tests 07/22/20 07/22/20 07/22/20 Range/Units 14:15 14:15 14:15 WBC 11.6 H (4.0-10.0) x10^3/uL RBC 5.14 (4.00-5.50) x10^6/uL Hgb 15.5 D (12.0-16.0) g/dL Hct 47.5 H (33.0-47.0) % MCV 92.4 (78.0-93.0) fL MCH 30.2 (26.0-32.0) pg MCHC 32.6 (32.0-36.0) g/dL RDW Coeff of Cameron 14.0 (10.0-15.0) % Plt Count 140 D (130-400) x10^3/uL Neut % (Auto) 95.8 H (50.0-80.0) % Lymph % (Auto) 2.2 L (25.0-50.0) % Thomas % (Auto) 1.5 L (2.0-11.0) % Eos % (Auto) 0.3 (0.0-4.0) % Baso % (Auto) 0.2 (0.2-1.2) % PT 10.4 (9.9-12.5) SEC INR 0.9 L (2.0-3.5) APTT (25.6-32.8) SEC Sodium 141 (136-145) mmol/L Potassium 4.1 (3.5-5.1) mmol/L Chloride 103 (98-107) mmol/L Carbon Dioxide 25 (21-32) mmol/L Anion Gap 17.1 H (5-15) mmol/L BUN 16 (7-18) mg/dL Creatinine 1.1 H (0.55-1.02) mg/dL Est Cr Clr Drug Dosing TNP Estimated GFR (MDRD) 55 Glucose 142 H (70-99) mg/dL Calcium 9.2 (8.5-10.1) mg/dL Corrected Calcium 9.20 (8.5-10.1) mg/dL Magnesium 1.5 L (1.8-2.4) mg/dL Total Bilirubin 0.4 (0.2-1.0) mg/dL AST 14 L (15-37) U/L ALT 33 (14-59) U/L Alkaline Phosphatase 117 H (46-116) U/L C-Reactive Protein 2.3 H (<=0.9) mg/dL Total Protein 7.6 (6.4-8.2) g/dL Albumin 4.0 (3.4-5.0) g/dL Globulin 3.6 Albumin/Globulin Ratio 1.11 Amylase 26 (25-115) U/L Lipase 46 L (73-393) U/L // Range/Units 14:15 WBC (4.0-10.0) x10^3/uL RBC (4.00-5.50) x10^6/uL Hgb (12.0-16.0) g/dL Hct (33.0-47.0) % MCV (78.0-93.0) fL MCH (26.0-32.0) pg MCHC (32.0-36.0) g/dL RDW Coeff of Cameron (10.0-15.0) % Plt Count (130-400) x10^3/uL Neut % (Auto) (50.0-80.0) % Lymph % (Auto) (25.0-50.0) % Thomas % (Auto) (2.0-11.0) % Eos % (Auto) (0.0-4.0) % Baso % (Auto) (0.2-1.2) % PT (9.9-12.5) SEC INR (2.0-3.5) APTT 22.1 L (25.6-32.8) SEC Sodium (136-145) mmol/L Potassium (3.5-5.1) mmol/L Chloride (98-107) mmol/L Carbon Dioxide (21-32) mmol/L Anion Gap (5-15) mmol/L BUN (7-18) mg/dL Creatinine (0.55-1.02) mg/dL Est Cr Clr Drug Dosing Estimated GFR (MDRD) Glucose (70-99) mg/dL Calcium (8.5-10.1) mg/dL Corrected Calcium (8.5-10.1) mg/dL Magnesium (1.8-2.4) mg/dL Total Bilirubin (0.2-1.0) mg/dL AST (15-37) U/L ALT (14-59) U/L Alkaline Phosphatase (46-116) U/L C-Reactive Protein (<=0.9) mg/dL Total Protein (6.4-8.2) g/dL Albumin (3.4-5.0) g/dL Globulin Albumin/Globulin Ratio Amylase (25-115) U/L Lipase (73-393) U/L Meds: Medications Discontinued Medications Generic Name Dose Route Start Last Admin Trade Name Freq PRN Reason Stop Dose Admin Sodium Chloride 1,000 mls @ 1,000 mls/hr 07/22/20 14:00 07/22/20 13:55 Normal Saline IV 1,000 mls/hr ASDIRECTED FABI Administration Sodium Chloride 1,000 mls @ 999 mls/hr 07/22/20 16:26 07/22/20 15:34 Normal Saline IV 07/22/20 17:26 999 mls/hr ONETIME ONE Administration Iopamidol 100 ml 07/22/20 15:53 07/22/20 15:54 Iopamidol 612 Mg/Ml 100 Ml Bottle IVPUSH 07/22/20 15:54 100 ml ONETIME ONE Administration Ketorolac Tromethamine 15 mg 07/22/20 15:16 07/22/20 15:34 Ketorolac 15 Mg/Ml Sdv IVPUSH 07/22/20 15:17 15 mg ONETIME ONE Administration Lorazepam 1 mg 07/22/20 14:19 07/22/20 14:30 Lorazepam 2 Mg/Ml Sdv IVPUSH 07/22/20 14:20 1 mg STAT ONE Administration Morphine Sulfate 4 mg 07/22/20 15:16 07/22/20 15:38 Morphine 4 Mg/Ml Syringe IVPUSH 07/22/20 15:17 4 mg ONETIME ONE Administration Ondansetron HCl 4 mg 07/22/20 13:55 07/22/20 14:08 Ondansetron 4 Mg/2 Ml Sdv IVPUSH 07/22/20 13:56 4 mg ONETIME ONE Administration Ondansetron HCl 2 packet 07/22/20 16:28 07/22/20 16:37 Take Home: Ondansetron 4 Mg Tab.Dis, 2 Tab Pack PO 07/22/20 16:29 2 packet ONETIME ONE Administration Prochlorperazine Edisylate 5 mg 07/22/20 15:19 07/22/20 15:36 Prochlorperazine 10 Mg/2 Ml Sdv IV 07/22/20 15:20 5 mg ONETIME ONE Administration Sodium Chloride 10 ml 07/22/20 13:53 Sodium Chloride 0.9% 10 Ml Syringe FLUSH ASDIRECTED PRN Keep Vein Open - Radiology Interpretation Free Text/Narrative:: CT abd and pelvis with contrast did not reveal any acute process Departure - Departure Time of Disposition: 16:42 Disposition: Home, Self-Care 01 Clinical Impression: Gastroenteritis - Discharge Information Instructions: Ondansetron oral dissolving tablet, Viral Gastroenteritis, Adult, [id number] Referrals: Rommel Huynh PA-C [Primary Care Provider] - Forms: ED Department Discharge Additional Instructions: Zofran ODT 1 every 6 hours as needed for nausea/vomiting. Clear liquid diet today (water and sport's drinks) You can start advancing your diet to toast, crackers, apples and other bland foods starting tomorrow afternoon if you feel able. Return to ER if you have worsening symptoms or are unable to hold down fluids. Sepsis Event Note (ED) - Evaluation Sepsis Screening Result: No Definite Risk - My Orders Last 24 Hours: My Active Orders 07/22/20 13:53 Peripheral IV Insertion Adult [OM.PC] Routine - Assessment/Plan Last 24 Hours: My Active Orders 07/22/20 13:53 Peripheral IV Insertion Adult [OM.PC] Routine Plan: Zofran ODT 1 every 6 hours as needed for nausea/vomiting. Clear liquid diet today (water and sport's drinks) You can start advancing your diet to toast, crackers, apples and other bland foods starting tomorrow afternoon if you feel able. Return to ER if you have worsening symptoms or are unable to hold down fluids.
== END 2020-07-22 16:42 | disposition home or self-care (01) ==
LOC: VM.ED 13:46
DX: K52.9 Noninfective gastroenteritis and colitis, unspecified (principal); K21.9 Gastro-esophageal reflux disease without esophagitis; E66.9 Obesity, unspecified; Z90.49 Acquired absence of other specified parts of digestive tract; Z79.899 Other long term (current) drug therapy; Z72.0 Tobacco use; Z88.8 Allergy status to other drugs, medicaments and biological substances; Z68.30 Body mass index [BMI] 30.0-30.9, adult
CPT/HCPCS: 36415; 74177; 80053; 82150; 83690; 83735; 85025; 85610; 85730; 86140; 96361; 96374; 96375; 99284; 99284-25; A9270-GY; J0780; J1885; J2060; J2270; J2405; J7030; Q9967

== ENCOUNTER 2020-10-30 19:12 | Emergency (ER) | payer MEDICAID ==
[2020-10-30] MEDS ORDERED: Acetaminophen/HYDROcodone 325-5 MG Tab PO ONE (19:57)
[2020-10-30] MEDS ORDERED: Ondansetron 4 MG Tab.DIS PO ONE (20:03)
[2020-10-30 20:05] VITALS: BP 135/102; PULSE 111
[2020-10-30] MEDS ORDERED: Ondansetron 4 MG/2 ML SDV IM ONE (20:12)
--- NOTE | 2020-10-30 20:26 | EDM.PDOC ---
ED HPI GENERAL MEDICAL PROBLEM - General Chief Complaint: Abdominal Pain Time Seen by Provider: 10/30/20 19:35 Source of Information: Reports: Patient History Limitations: Reports: No Limitations - History of Present Illness INITIAL COMMENTS - FREE TEXT/NARRATIVE: Pt. presents to ER in extreme distress complaining of R anterolateral abdominal/chest pain. Pt. states that yesterday she tripped over her footwear and fell onto the center console of her car, injuring her lower chest/abdomen. She states that today she was hit in the abdomen by a car door in the same area, exacerbating the injury. Pt. reports significant discomfort, particularly with movement. She states that she is unable to take a deep breath. Pt. is on tramadol chronically and states that she has been taking ibuprofen and tylenol in addition to the tramadol and nothing is helping the pain. She complains of nausea and lightheadedness. She states that she is short of breath because of the discomfort. Denies any substernal chest pain. Pt. denies any injury to this area previously. Denies striking her head in the incidents. No neck pain. Onset: Today Onset Date: 10/30/20 Location: Reports: Chest, Abdomen Quality: Reports: Ache, Burning, Pressure, Sharp, Stabbing, Throbbing Severity: Severe Improves with: Reports: None Worsens with: Reports: Breathing, Movement Associated Symptoms: Reports: Nausea/Vomiting Right Upper Abdomen Pain Score (Numeric/FACES): 3 - Related Data Allergies Allergy/AdvReac Type Severity Reaction Status Date / Time methylprednisolone AdvReac Hallucinati Verified 07/22/20 14:04 ons Home Meds: Home Meds ARIPiprazole [Abilify] 5 mg PO DAILY 07/03/18 [History] Pantoprazole [ProTONIX] 40 mg PO DAILY 07/03/18 [History] Rizatriptan Benzoate [Rizatriptan] 10 mg PO ASDIRECTED 01/21/20 [History] Citalopram [Citalopram HBr] 20 mg PO DAILY 02/01/20 [History] Baclofen 10 mg PO TID 15 Days #45 tablet 09/12/20 [Rx] traMADol [Ultram] 50 mg PO TID PRN 30 Days #90 tablet 09/12/20 [Rx] Past Medical History HEENT History: Reports: Impaired Vision, Other (See Below) Other HEENT History: wears glasses Gastrointestinal History: Reports: GERD Musculoskeletal History: Reports: Back Pain, Chronic Neurological History: Reports: Migraines, Seizure, Other (See Below) Other Neuro History: seizure after starting tramadol Psychiatric History: Reports: Anxiety, Depression, Panic Attack, PTSD Endocrine/Metabolic History: Reports: Obesity/BMI 30+ Immunologic History: Reports: None Oncologic (Cancer) History: Reports: None - Infectious Disease History Infectious Disease History: Reports: Chicken Pox - Past Surgical History GI Surgical History: Reports: Appendectomy, Cholecystectomy, Colonoscopy, EGD Other GI Surgeries/Procedures: adhesion removal Female Surgical History: Reports: Section, Hysterectomy, Salpingo- Oophorectomy Neurological Surgical History: Reports: None Other Musculoskeletal Surgeries/Procedures:: fracture, right arm Social & Family History - Family History Family Medical History: No Pertinent Family History : Reports: Other (See Below) Other Musculoskeletal Family History: mother: fibromyalgia Psychiatric: Reports: Depression Other Psychiatric Family History: mother: depression Other Endocrine/Metabolic Family History: brother: obesity Other Oncologic Family History: father: throat cancer - Caffeine Use Caffeine Use: Reports: None Caffeine Use Comment: Patient states she rarely uses caffeine - Living Situation & Occupation Living situation: Reports: (2 children 1 boy 1 girl) 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[employer]) ED ROS GENERAL - Review of Systems Review Of Systems: See Below Constitutional: Reports: No Symptoms HEENT: Reports: No Symptoms Respiratory: Reports: Pleuritic Chest Pain, Other (See HPI) Cardiovascular: Reports: No Symptoms Endocrine: Reports: No Symptoms GI/Abdominal: Reports: Abdominal Pain : Reports: No Symptoms Musculoskeletal: Reports: No Symptoms Skin: Reports: No Symptoms Neurological: Reports: No Symptoms Psychiatric: Reports: No Symptoms Hematologic/Lymphatic: Reports: No Symptoms Immunologic: Reports: No Symptoms ED EXAM, GENERAL - Physical Exam Exam: See Below Exam Limited By: No Limitations General Appearance: Alert, WD/WN, No Apparent Distress Respiratory/Chest: No Respiratory Distress, No Accessory Muscle Use, Other (Anterior lower rib pain. No crepitus. Mild erythema noted to area.) Cardiovascular: Regular Rate, Rhythm, No Edema, No JVD Peripheral Pulses: 4+: Radial (L) GI/Abdominal: Normal Bowel Sounds, Soft, Guarding (Exquisitely tender with light palpation of the R upper abdomen.), Tender, Other (Female) Exam: Deferred Rectal (Female) Exam: Deferred Neurological: Alert, Oriented, CN II-XII Intact, Normal Cognition, Normal Gait, Normal Reflexes, No Motor/Sensory Deficits Psychiatric: Anxious, Tearful Skin Exam: Warm, Dry, Intact, Normal Color, No Rash Lymphatic: No Adenopathy Course - Vital Signs Last Recorded V/S: Last Vital Signs Temp 36.8 C 10/30/20 19:35 Pulse 111 H 10/30/20 19:35 Resp 22 H 10/30/20 19:35 BP 135/102 H 10/30/20 19:35 Pulse Ox 98 10/30/20 19:35 - Orders/Labs/Meds Orders: Active Orders 24 hr Category Date Time Status Abdomen Pelvis w Cont [CT] Stat Exams 10/30/20 21:17 Taken Peripheral IV Insertion Adult [OM.PC] Routine Oth 10/30/20 20:53 Ordered Labs: Laboratory Tests 10/30/20 10/30/20 10/30/20 Range/Units 20:58 20:58 21:39 WBC 11.2 H (4.0-10.0) x10^3/uL RBC 4.76 (4.00-5.50) x10^6/uL Hgb 14.5 (12.0-16.0) g/dL Hct 42.7 (33.0-47.0) % MCV 89.7 (78.0-93.0) fL MCH 30.5 (26.0-32.0) pg MCHC 34.0 (32.0-36.0) g/dL RDW Coeff of [place] 13.5 (10.0-15.0) % Plt Count 323 D (130-400) x10^3/uL Neut % (Auto) 61.3 (50.0-80.0) % Lymph % (Auto) 32.6 (25.0-50.0) % [place] % (Auto) 5.5 (2.0-11.0) % Eos % (Auto) 0.3 (0.0-4.0) % Baso % (Auto) 0.3 (0.2-1.2) % Sodium 138 (136-145) mmol/L Potassium 4.1 (3.5-5.1) mmol/L Chloride 99 (98-107) mmol/L Carbon Dioxide 29 (21-32) mmol/L Anion Gap 14.1 (5-15) mmol/L BUN 12 (7-18) mg/dL Creatinine 1.2 H (0.55-1.02) mg/dL Est Cr Clr Drug Dosing 62.24 mL/min Estimated GFR (MDRD) 50 Glucose 110 H (70-99) mg/dL Calcium 9.6 (8.5-10.1) mg/dL Corrected Calcium 9.6 (8.5-10.1) mg/dL Phosphorus 5.1 H (2.6-4.7) mg/dL Magnesium 2.1 (1.8-2.4) mg/dL Total Bilirubin 0.2 (0.2-1.0) mg/dL AST 12 L (15-37) U/L ALT 29 (14-59) U/L Alkaline Phosphatase 108 (46-116) U/L C-Reactive Protein 0.5 (<=0.9) mg/dL Total Protein 7.9 (6.4-8.2) g/dL Albumin 4.0 (3.4-5.0) g/dL Globulin 3.9 Albumin/Globulin Ratio 1.03 Urine Color Yellow (YELLOW) Urine Appearance Clear (CLEAR) Urine pH 5.5 (5.0-8.0) Ur Specific [place] 1.025 Urine Protein Negative (NEGATIVE) mg/dL Urine Glucose (UA) Negative (NEGATIVE) mg/dL Urine Ketones Negative (NEGATIVE) mg/dL Urine Occult Blood Negative (NEGATIVE) Urine Nitrite Negative (NEGATIVE) Urine Bilirubin Negative (NEGATIVE) Urine Urobilinogen 0.2 (0.2) EU/dL Ur Leukocyte Esterase Negative (NEGATIVE) Urine HCG, Qual (NEGATIVE) 10/30/20 Range/Units 21:39 WBC (4.0-10.0) x10^3/uL RBC (4.00-5.50) x10^6/uL Hgb (12.0-16.0) g/dL Hct (33.0-47.0) % MCV (78.0-93.0) fL MCH (26.0-32.0) pg MCHC (32.0-36.0) g/dL RDW Coeff of [place] (10.0-15.0) % Plt Count (130-400) x10^3/uL Neut % (Auto) (50.0-80.0) % Lymph % (Auto) (25.0-50.0) % [place] % (Auto) (2.0-11.0) % Eos % (Auto) (0.0-4.0) % Baso % (Auto) (0.2-1.2) % Sodium (136-145) mmol/L Potassium (3.5-5.1) mmol/L Chloride (98-107) mmol/L Carbon Dioxide (21-32) mmol/L Anion Gap (5-15) mmol/L BUN (7-18) mg/dL Creatinine (0.55-1.02) mg/dL Est Cr Clr Drug Dosing mL/min Estimated GFR (MDRD) Glucose (70-99) mg/dL Calcium (8.5-10.1) mg/dL Corrected Calcium (8.5-10.1) mg/dL Phosphorus (2.6-4.7) mg/dL Magnesium (1.8-2.4) mg/dL Total Bilirubin (0.2-1.0) mg/dL AST (15-37) U/L ALT (14-59) U/L Alkaline Phosphatase (46-116) U/L C-Reactive Protein (<=0.9) mg/dL Total Protein (6.4-8.2) g/dL Albumin (3.4-5.0) g/dL Globulin Albumin/Globulin Ratio Urine Color (YELLOW) Urine Appearance (CLEAR) Urine pH (5.0-8.0) Ur Specific [place] Urine Protein (NEGATIVE) mg/dL Urine Glucose (UA) (NEGATIVE) mg/dL Urine Ketones (NEGATIVE) mg/dL Urine Occult Blood (NEGATIVE) Urine Nitrite (NEGATIVE) Urine Bilirubin (NEGATIVE) Urine Urobilinogen (0.2) EU/dL Ur Leukocyte Esterase (NEGATIVE) Urine HCG, Qual Negative (NEGATIVE) Meds: Medications Discontinued Medications Generic Name Dose Route Start Last Admin Trade Name Freq PRN Reason Stop Dose Admin Acetaminophen/Codeine Phosphate 1 packet 10/30/20 22:31 10/30/20 22:49 Take Home: Acetaminophen/Codeine 300 Mg/30 Mg, 5 Tab Pack PO 10/30/20 22:32 1 packet ONETIME ONE Administration Hydrocodone Bitart/Acetaminophen 1 tab 10/30/20 19:57 Acetaminophen/Hydrocodone 325-5 Mg Tab PO 10/30/20 19:58 ONETIME ONE Sodium Chloride 1,000 mls @ 1,000 mls/hr 10/30/20 21:00 10/30/20 21:06 Normal Saline IV 1,000 mls/hr ASDIRECTED FABI Administration Iopamidol 100 ml 10/30/20 21:50 10/30/20 21:50 Iopamidol 612 Mg/Ml 100 Ml Bottle IVPUSH 10/30/20 21:51 100 ml ONETIME ONE Administration Ketorolac Tromethamine 15 mg 10/30/20 21:41 10/30/20 21:54 Ketorolac 15 Mg/Ml Sdv IVPUSH 10/30/20 21:42 15 mg ONETIME ONE Administration Metoclopramide HCl 10 mg 10/30/20 20:57 10/30/20 21:06 Metoclopramide 10 Mg/2 Ml Sdv IVPUSH 10/30/20 20:58 10 mg ONETIME ONE Administration Morphine Sulfate 4 mg 10/30/20 20:54 10/30/20 21:06 Morphine 4 Mg/Ml Syringe IVPUSH 10/30/20 20:55 4 mg ONETIME ONE Administration Morphine Sulfate 4 mg 10/30/20 21:41 10/30/20 21:55 Morphine 4 Mg/Ml Syringe IVPUSH 10/30/20 21:42 4 mg ONETIME ONE Administration Ondansetron HCl 4 mg 10/30/20 20:03 10/30/20 20:11 Ondansetron 4 Mg Tab.Dis PO 10/30/20 20:04 4 mg ONETIME ONE Administration Ondansetron HCl 4 mg 10/30/20 20:12 10/30/20 20:21 Ondansetron 4 Mg/2 Ml Sdv IM 10/30/20 20:13 4 mg ONETIME ONE Administration Prochlorperazine Edisylate 10 mg 10/30/20 20:56 Prochlorperazine 10 Mg/2 Ml Sdv IV 10/30/20 20:57 ONETIME ONE Sodium Chloride 10 ml 10/30/20 20:53 Sodium Chloride 0.9% 10 Ml Syringe FLUSH ASDIRECTED PRN Keep Vein Open - Radiology Interpretation Free Text/Narrative:: Chest x-ray negative CT abdomen and pelvis with contrast obtained. No evidence of acute pathology. Pt. noted to have fatty liver. - Re-Assessments/Exams Free Text/Narrative Re-Assessment/Exam: Pt. was brought into the ER and examined. She was crying and writhing in pain. She was nauseated and wretching but did not actively vomit any large amount of emesis. Initially she was given an IM injection of zofran in hopes of giving her oral pain medication. Subsequently IV access was achieved and she was given IV reglan, benadryl, morphine and toradol. She reported her pain was down to a 6 after this and requested dilaudid. Pt. was instead given a second dose of morphine 4 mg IV. She was then sitting up on the bed, talking to her father and seemed to be in much less distress. She was given a liter or NS in ER. Departure - Departure Time of Disposition: 22:45 Disposition: Home, Self-Care 01 Clinical Impression: Abdominal wall contusion - Discharge Information Instructions: Contusion, [id number], Acetaminophen tablets or caplets Referrals: Rommel Huynh PA-C [Primary Care Provider] - Forms: ED Department Discharge Additional Instructions: Ibuprofen 200mg 3 tabs every 6 hours as needed for pain Continue with tramadol as prescribed Tylenol #3 1 every 6 hours for pain that is not helped by the ibuprofen or tramadol Avoid reinjuring this area again Recheck in clinic in 7-10 days Sepsis Event Note (ED) - Evaluation Sepsis Screening Result: No Definite Risk - Focused Exam Vital Signs: Vital Signs Temp Pulse Resp BP Pulse Ox 10/30/20 19:35 36.8 C 111 H 22 H 135/102 H 98 - My Orders Last 24 Hours: My Active Orders 10/30/20 20:53 Peripheral IV Insertion Adult [OM.PC] Routine 10/30/20 21:17 Abdomen Pelvis w Cont [CT] Stat - Assessment/Plan Last 24 Hours: My Active Orders 10/30/20 20:53 Peripheral IV Insertion Adult [OM.PC] Routine 10/30/20 21:17 Abdomen Pelvis w Cont [CT] Stat Plan: Pt. was discharged. She was given a 5 unit pack of tylenol #3 to take if the pain was not amenable to ibuprofen or tramadol. Advised to ice the area. Recheck in clinic in 7-10 days, sooner if not gradually improving.
--- NOTE | 2020-10-30 20:41 | CR ---
[id number] RAD/RAD Chest PA And Lateral EXAM: RAD Chest PA AND Lateral INDICATION: FALL/ RT LOWER ANTERIOR CHEST PAIN COMPARISON: January 24, 2019 DISCUSSION/IMPRESSION: Cardiomediastinal silhouette is normal in size and contour. Lungs are clear. No pleural effusion or pneumothorax. Jose Poole MD 10/31/20 0917 Thank you for allowing us to participate in the care of your patient.
[2020-10-30] MEDS ORDERED: Sodium Chloride 0.9% 10 ML Syringe FLUSH PRN (20:53)
[2020-10-30] MEDS ORDERED: Morphine 4 MG/ML Syringe IVPUSH ONE ×2 (20:54→21:41)
[2020-10-30] MEDS ORDERED: Prochlorperazine 10 MG/2 ML SDV IV ONE (20:56)
[2020-10-30] MEDS ORDERED: Metoclopramide 10 MG/2 ML SDV IVPUSH ONE (20:57)
[2020-10-30] MEDS ORDERED: Sodium Chloride 0.9% 1,000 ML IV SCH (21:00)
[2020-10-30 21:33] LABS: ANION GAP 14.1 mmol/L (5-15)
[2020-10-30] MEDS ORDERED: Ketorolac 15 MG/ML SDV IVPUSH ONE (21:41)
[2020-10-30] MEDS ORDERED: Iopamidol 612 MG/ML 100 ML Bottle IVPUSH ONE (21:50)
[2020-10-30] MEDS ORDERED: Take Home: Acetaminophen/Codeine 300 MG/30 MG, 5 Tab Pack PO ONE (22:31)
--- NOTE | 2020-10-31 08:49 | CT ---
[id number] CT/CT Abdomen Pelvis W IV EXAM: CT Abdomen Pelvis W IV CLINICAL DATA: RIGHT UPPER ABDOMINAL PAIN POST FALL. COMPARISON STUDY: July 22, 2020. FINDINGS: Lung bases are clear. Hepatomegaly. Diffusely decreased hepatic density suggests steatosis. Spleen, pancreas, adrenal glands, and kidneys are unremarkable. Cholecystectomy. Few diverticula. No acute diverticulitis. No small bowel obstruction. Again seen is wall thickening and proximal small bowel loops in the left upper quadrant. This was seen in July 2020 and is nonspecific. No lymphadenopathy, free fluid, or pneumoperitoneum. Hysterectomy. Adnexal regions are unremarkable. Urinary bladder is unremarkable. Spondylosis, including advanced L5-S1 degenerative disc disease. No acute fracture or compression deformity. IMPRESSION: No acute findings in the abdomen or pelvis. Hepatomegaly and diffuse steatosis. Correlate with LFTs. Possible mild changes of enteritis in the left upper quadrant, correlating with appearance of bowel on examination from July 2020. Jose Poole MD 10/31/20 0848 Thank you for allowing us to participate in the care of your patient.
== END 2020-10-30 22:45 | disposition home or self-care (01) ==
LOC: VM.ED 19:12
DX: S30.1XXA Contusion of abdominal wall, initial encounter (principal); K21.9 Gastro-esophageal reflux disease without esophagitis; E66.9 Obesity, unspecified; Z68.38 Body mass index [BMI] 38.0-38.9, adult; Z88.8 Allergy status to other drugs, medicaments and biological substances; Z79.899 Other long term (current) drug therapy; W01.198A Fall on same level from slipping, tripping and stumbling with subsequent striking against other object, initial encounter
CPT/HCPCS: 71046; 74177; 80053; 81003; 81025; 83735; 84100; 85025; 86140; 96372; 96374; 96375; 96376; 99284; 99284-25; A9270-GY; J1885; J2270; J2405; J2765; J7030; Q9967

== ENCOUNTER 2020-12-18 17:53 | Inpatient (IN) | payer MEDICAID ==
[2020-12-18] MEDS ORDERED: Ketorolac 30 MG/ML SDV IVPUSH ONE (18:15)
[2020-12-18] MEDS ORDERED: Ondansetron 4 MG/2 ML SDV IVPUSH ONE (18:15)
[2020-12-18] MEDS ORDERED: Sodium Chloride 0.9% 10 ML Syringe FLUSH PRN (18:15)
[2020-12-18] MEDS ORDERED: Sodium Chloride 0.9% 1,000 ML IV ONE (18:15)
--- NOTE | 2020-12-18 18:23 | EDM.PDOC ---
ED HPI GENERAL MEDICAL PROBLEM - General Chief Complaint: Abdominal Pain Stated Complaint: abdominal pain Time Seen by Provider: 12/18/20 18:14 Source of Information: Reports: Patient History Limitations: Reports: No Limitations - History of Present Illness INITIAL COMMENTS - FREE TEXT/NARRATIVE: Patient reports abdominal pain, nausea, vomiting since about 3 hours ago. Describes pain as severe cramping from the mid abdomen to the left upper quadrant. Thought it was GERD and did take tums and pepto bismol with no effect. History of appendectomy, cholecystectomy, total hysterectomy with oophorectomy. States she did also have an SBO as well as surger for lysis of adhesions about 15 years ago. Reports several small, dark colored stools on a daily basis for the last 2 weeks. Very small in amount. Denies bright red blood. History of diverticulosis. Denies recent fever or any respiratory symptoms. Onset: Today, Sudden Duration: Waxing/Waning Location: Reports: Abdomen Quality: Reports: Pressure Severity: Severe Improves with: Reports: None Worsens with: Reports: Movement Treatments SUPPORT STAFF: Reports: Other Medication(s) (tums/pepto bismol) Middle Abdomen Pain Score (Numeric/FACES): 8 - Related Data Allergies Allergy/AdvReac Type Severity Reaction Status Date / Time methylprednisolone AdvReac Hallucinati Verified 12/18/20 18:08 ons Home Meds: Home Meds ARIPiprazole [Abilify] 5 mg PO DAILY 07/03/18 [History] Pantoprazole [ProTONIX] 40 mg PO DAILY 07/03/18 [History] Rizatriptan Benzoate [Rizatriptan] 10 mg PO ASDIRECTED 01/21/20 [History] Citalopram [Citalopram HBr] 20 mg PO DAILY 02/01/20 [History] Baclofen 10 mg PO TID 15 Days #45 tablet 09/12/20 [Rx] traMADol [Ultram] 50 mg PO TID PRN 30 Days #90 tablet 09/12/20 [Rx] ALPRAZolam [Alprazolam] 1 mg PO TID PRN 12/18/20 [History] Past Medical History HEENT History: Reports: Impaired Vision, Other (See Below) Other HEENT History: wears glasses Gastrointestinal History: Reports: GERD Musculoskeletal History: Reports: Back Pain, Chronic Neurological History: Reports: Migraines, Seizure, Other (See Below) Other Neuro History: seizure after starting tramadol Psychiatric History: Reports: Anxiety, Depression, Panic Attack, PTSD Endocrine/Metabolic History: Reports: Obesity/BMI 30+ Immunologic History: Reports: None Oncologic (Cancer) History: Reports: None - Infectious Disease History Infectious Disease History: Reports: Chicken Pox - Past Surgical History GI Surgical History: Reports: Appendectomy, Cholecystectomy, Colonoscopy, EGD Other GI Surgeries/Procedures: adhesion removal Female Surgical History: Reports: Section, Hysterectomy, Salpingo- Oophorectomy Neurological Surgical History: Reports: None Other Musculoskeletal Surgeries/Procedures:: fracture, right arm Social & Family History - Family History Family Medical History: No Pertinent Family History : Reports: Other (See Below) Other Musculoskeletal Family History: mother: fibromyalgia Psychiatric: Reports: Depression Other Psychiatric Family History: mother: depression Other Endocrine/Metabolic Family History: brother: obesity Other Oncologic Family History: father: throat cancer - Tobacco Use Tobacco Use Status *Q: Unknown Ever Used Tobacco - Caffeine Use Caffeine Use: Reports: None Caffeine Use Comment: Patient states she rarely uses caffeine - Living Situation & Occupation Living situation: Reports: (2 children 1 boy 1 girl) 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 GENERAL - Review of Systems Review Of Systems: See Below Constitutional: Reports: No Symptoms HEENT: Reports: No Symptoms Respiratory: Reports: No Symptoms Cardiovascular: Reports: No Symptoms Endocrine: Reports: No Symptoms GI/Abdominal: Reports: Abdominal Pain, Nausea, Vomiting, Other (small, frequent, dark stools) : Reports: No Symptoms Musculoskeletal: Reports: No Symptoms Skin: Reports: No Symptoms Neurological: Reports: No Symptoms Psychiatric: Reports: Anxiety Hematologic/Lymphatic: Reports: No Symptoms Immunologic: Reports: No Symptoms ED EXAM, GI/ABD - Physical Exam Exam: See Below Exam Limited By: No Limitations General Appearance: Alert, Anxious, Mild Distress Eyes: Bilateral: Normal Appearance, EOMI Ears: Normal TMs Nose: Normal Inspection, Normal Mucosa, No Blood Throat/Mouth: Normal Inspection, Normal Lips, Normal Teeth, Normal Gums, Normal Oropharynx, Normal Voice, No Airway Compromise Head: Atraumatic, Normocephalic Neck: Normal Inspection, Supple, Non-Tender, Full Range of Motion Respiratory/Chest: No Respiratory Distress, Lungs Clear, Normal Breath Sounds, No Accessory Muscle Use, Chest Non-Tender Cardiovascular: Normal Peripheral Pulses, Regular Rate, Rhythm, No Edema, No Gallop, No JVD, No Murmur, No Rub GI/Abdominal Exam: Normal Bowel Sounds, Soft, Non-Tender, No Organomegaly, No Distention, No Abnormal Bruit, No Mass, Pelvis Stable Extremities: Normal Inspection, Normal Range of Motion, Non-Tender, Normal Capillary Refill, No Pedal Edema Neurological: Alert, Oriented, CN II-XII Intact, Normal Cognition, Normal Gait, Normal Reflexes, No Motor/Sensory Deficits Psychiatric: Normal Affect, Normal Mood Skin Exam: Warm, Dry, Intact, Normal Color, No Rash Lymphatic: No Adenopathy Course - Vital Signs Last Recorded V/S: Last Vital Signs Temp 36.9 C 12/18/20 17:55 Pulse 106 H 12/18/20 17:55 Resp 18 12/18/20 17:55 BP 133/112 H 12/18/20 17:55 Pulse Ox 96 12/18/20 17:55 - Orders/Labs/Meds Orders: Active Orders 24 hr Category Date Time Status Sodium Chloride 0.9% [Saline Flush] Med 12/18/20 18:15 Active 10 ml FLUSH ASDIRECTED PRN Saline Lock Insert [OM.PC] Routine Oth 12/18/20 18:15 Ordered Medication Orders Hydromorphone HCl (Hydromorphone 0.5 Mg/0.5 Ml Syringe) 0.5 mg IVPUSH Q2H PRN PRN Reason: Pain (severe 7-10) Ondansetron HCl (Ondansetron 4 Mg/2 Ml Sdv) 4 mg IV Q6H PRN PRN Reason: Nausea/Vomiting Sodium Chloride (Sodium Chloride 0.9% 10 Ml Syringe) 10 ml FLUSH ASDIRECTED PRN PRN Reason: Keep Vein Open Labs: Laboratory Tests 12/18/20 12/18/20 12/18/20 Range/Units 18:27 18:27 19:40 WBC 7.6 (4.0-10.0) x10^3/uL RBC 4.55 (4.00-5.50) x10^6/uL Hgb 13.8 (12.0-16.0) g/dL Hct 40.7 (33.0-47.0) % MCV 89.5 (78.0-93.0) fL MCH 30.3 (26.0-32.0) pg MCHC 33.9 (32.0-36.0) g/dL RDW Coeff of [place] 13.2 (10.0-15.0) % Plt Count 329 (130-400) x10^3/uL Sodium 140 (136-145) mmol/L Potassium 3.6 (3.5-5.1) mmol/L Chloride 101 (98-107) mmol/L Carbon Dioxide 29 (21-32) mmol/L Anion Gap 13.6 (5-15) mmol/L BUN 8 (7-18) mg/dL Creatinine 0.9 (0.55-1.02) mg/dL Est Cr Clr Drug Dosing TNP Estimated GFR (MDRD) > 60 Glucose 99 (70-99) mg/dL Calcium 9.1 (8.5-10.1) mg/dL Corrected Calcium 9.3 (8.5-10.1) mg/dL Total Bilirubin 0.3 (0.2-1.0) mg/dL AST 23 (15-37) U/L ALT 54 (14-59) U/L Alkaline Phosphatase 100 (46-116) U/L C-Reactive Protein < 0.2 (<=0.9) mg/dL Total Protein 6.9 (6.4-8.2) g/dL Albumin 3.8 (3.4-5.0) g/dL Globulin 3.1 Albumin/Globulin Ratio 1.23 Urine Color Dark yellow H (YELLOW) Urine Appearance Clear (CLEAR) Urine pH 6.0 (5.0-8.0) Ur Specific [place] 1.020 Urine Protein Negative (NEGATIVE) mg/dL Urine Glucose (UA) Negative (NEGATIVE) mg/dL Urine Ketones Negative (NEGATIVE) mg/dL Urine Occult Blood Negative (NEGATIVE) Urine Nitrite Negative (NEGATIVE) Urine Bilirubin Negative (NEGATIVE) Urine Urobilinogen 0.2 (0.2) EU/dL Ur Leukocyte Esterase Negative (NEGATIVE) Meds: Medications Generic Name Dose Route Start Last Admin Trade Name Freq PRN Reason Stop Dose Admin Hydromorphone HCl 0.5 mg 12/18/20 21:17 Hydromorphone 0.5 Mg/0.5 Ml Syringe IVPUSH Q2H PRN Pain (severe 7-10) Ondansetron HCl 4 mg 12/18/20 21:17 Ondansetron 4 Mg/2 Ml Sdv IV Q6H PRN Nausea/Vomiting Sodium Chloride 10 ml 12/18/20 18:15 Sodium Chloride 0.9% 10 Ml Syringe FLUSH ASDIRECTED PRN Keep Vein Open Discontinued Medications Generic Name Dose Route Start Last Admin Trade Name Freq PRN Reason Stop Dose Admin Hydromorphone HCl 1 mg 12/18/20 18:39 12/18/20 18:50 Hydromorphone 1 Mg/Ml Syringe IVPUSH 12/18/20 18:40 1 mg ONETIME ONE Administration Hydromorphone HCl 1 mg 12/18/20 19:51 12/18/20 20:05 Hydromorphone 1 Mg/Ml Syringe IVPUSH 12/18/20 19:52 1 mg ONETIME ONE Administration Sodium Chloride 1,000 mls @ 999 mls/hr 12/18/20 18:15 12/18/20 18:30 Normal Saline IV 12/18/20 19:15 999 mls/hr ONETIME ONE Administration Iopamidol 100 ml 12/18/20 19:17 12/18/20 19:35 Iopamidol 612 Mg/Ml 100 Ml Bottle IVPUSH 12/18/20 19:18 100 ml ONETIME ONE Administration Ketorolac Tromethamine 30 mg 12/18/20 18:15 12/18/20 18:33 Ketorolac 30 Mg/Ml Sdv IVPUSH 12/18/20 18:16 30 mg ONETIME ONE Administration Ondansetron HCl 4 mg 12/18/20 18:15 12/18/20 18:30 Ondansetron 4 Mg/2 Ml Sdv IVPUSH 12/18/20 18:16 4 mg ONETIME ONE Administration Departure - Departure Time of Disposition: 21:45 Disposition: Admitted As Inpatient 64 Condition: Fair Clinical Impression: Small bowel obstruction - Discharge Information *PRESCRIPTION DRUG MONITORING PROGRAM REVIEWED*: Not Applicable *COPY OF PRESCRIPTION DRUG MONITORING REPORT IN PATIENT [facility]: Not Applicable Sepsis Event Note (ED) - Focused Exam Vital Signs: Vital Signs Temp Pulse Resp BP Pulse Ox 12/18/20 17:55 36.9 C 106 H 18 133/112 H 96 ED Communication - ED Communication Date/Time Date: 12/18/20 Time Called: 20:30 - Discussed Case With (1) Discussed Case With (1): Admitting Provider (Patient will be admitted inpatient. Spoke with Dr. Portillo and she will see in the AM. Will be npo with iv fluids, iv antiemtics and pain control.) - Problem List & Annotations (1) Small bowel obstruction SNOMED Code(s): 940401365 Code(s): K56.609 - UNSP INTESTNL OBST, UNSP TO PARTIAL VERSUS COMPLETE OBST Status: Acute Priority: Medium Current Visit: No Annotation/Comment:: PLEASE USE ER HISTORY AND PHYSICAL FOR ADMISSION H AND P. - Problem List Review Problem List Initiated/Reviewed/Updated: Yes - My Orders Last 24 Hours: My Active Orders 12/18/20 18:15 Sodium Chloride 0.9% [Saline Flush] 10 ml FLUSH ASDIRECTED PRN Saline Lock Insert [OM.PC] Routine - Assessment/Plan Last 24 Hours: My Active Orders 12/18/20 18:15 Sodium Chloride 0.9% [Saline Flush] 10 ml FLUSH ASDIRECTED PRN Saline Lock Insert [OM.PC] Routine Assessment:: Small bowel obstruction Plan: Admit to inpatient. Dr. Portillo to see in AM. Keep NPO, IV hydration, antiemetics and pain control.
[2020-12-18] MEDS ORDERED: HYDROmorphone 1 MG/ML Syringe IVPUSH ONE ×2 (18:39→19:51)
[2020-12-18 18:51] LABS: CHLORIDE,CL 101 mmol/L (98-107); SODIUM,NA 140 mmol/L (136-145)
[2020-12-18 18:52] LABS: ANION GAP 13.6 mmol/L (5-15)
[2020-12-18] MEDS ORDERED: Iopamidol 612 MG/ML 100 ML Bottle IVPUSH ONE (19:17)
--- NOTE | 2020-12-18 20:23 | CT ---
[id number] CT/CT Abdomen Pelvis W IV EXAM: ABDOMEN AND PELVIS CT WITH CONTRAST INDICATION: Nausea, vomiting, diarrhea, epigastric pain, and history of small bowel obstruction and adhesions. COMPARISON: October 30, 2020. DISCUSSION: The liver is enlarged measuring about 22 cm craniocaudal and demonstrates steatosis. Cholecystectomy. The small bowel progressively dilates to about 26 mm, is fluid-filled and demonstrates fecalization just proximal to an apparent transition point in the left lower quadrant (image 34 series 3) compatible with small bowel obstruction. No wall thickening, pneumatosis, free air, free fluid or other evident complicating features. Hysterectomy. Scattered diverticula of the colon without evidence of diverticulitis. Scattered degenerative changes in the spine most significant at L5-S1. The osseous structures are otherwise unremarkable. The pancreas, spleen, adrenal glands, kidneys and bladder are unremarkable. No adenopathy, free air free fluid. The appendix is not identified and per patient report has been removed. IMPRESSION: 1. Mid small bowel obstruction. No CT evident complication. Jtiendra Redding MD 12/18/202021 Thank you for allowing us to participate in the care of your patient.
[2020-12-18] MEDS: Sodium Chloride 0.9% 1,000 ML IV SCH (22:06)
[2020-12-18] MEDS: HYDROmorphone 0.5 MG/0.5 ML Syringe IVPUSH PRN (22:09)
[2020-12-19] MEDS: Ondansetron 4 MG/2 ML SDV IV PRN ×3 (00:04→20:30)
[2020-12-19] MEDS: HYDROmorphone 0.5 MG/0.5 ML Syringe IVPUSH PRN ×9 (00:09→21:40)
[2020-12-19] MEDS: Sodium Chloride 0.9% 1,000 ML IV SCH (08:15)
[2020-12-19] MEDS ORDERED: Flumazenil 0.1 MG/ML 5 ML MDV IVPUSH PRN (09:29)
[2020-12-19] MEDS ORDERED: Ketorolac 30 MG/ML SDV IVPUSH PRN (09:41)
[2020-12-19] MEDS ORDERED: Acetaminophen/Aspirin/Caffeine 250-250-65 MG Tab PO ONE (09:43)
[2020-12-19] MEDS: Nicotine 7 MG/24 Hr Patch TRDERM SCH (10:08)
[2020-12-19] MEDS: LORazepam 2 MG/ML SDV IVPUSH PRN ×3 (10:13→21:02)
[2020-12-19 10:17] LABS: CHLORIDE,CL 104 mmol/L (98-107); SODIUM,NA 139 mmol/L (136-145)
[2020-12-19 10:18] LABS: ANION GAP 7.7 mmol/L (5-15)
[2020-12-19] MEDS: Metoclopramide 10 MG/2 ML SDV IVPUSH PRN ×2 (11:12→17:09)
--- NOTE | 2020-12-19 11:31 | CR ---
[id number] RAD/RAD Abd Flat and Upright 2V EXAM: RAD Abd Flat and Upright 2V INDICATION: ABDOMINAL PAIN. COMPARISON: December 18, 2020 CT. DISCUSSION: No bowel dilation is evident by radiographs, bowel dilation was not evident on the scanogram of yesterday's CT which demonstrated sequela of a mid small bowel obstruction. No pneumatosis or free air. Cholecystectomy clips right upper quadrant. Hepatomegaly. IMPRESSION: 1. No radiographically evident bowel dilation, see discussion. A Gastrografin small bowel series could provide further evaluation. Jitendra Redding MD 12/19/20 [id number] Thank you for allowing us to participate in the care of your patient.
[2020-12-19] MEDS ORDERED: traMADol 50 MG Tab PO PRN (16:28)
[2020-12-19] MEDS ORDERED: ALPRAZolam 0.5 MG Tab PO PRN (16:28)
[2020-12-19] MEDS ORDERED: RIZATRIPTAN BENZOATE 10 MG PO SCH (16:30)
[2020-12-19] MEDS: Lactulose Soln 10 GM/15 ML 30 ML UD Cup PO PRN (17:10)
--- NOTE | 2020-12-19 17:29 | PN ---
Progress Note for MARCUS HARMAN Date: 12/19/2020 Room #: VM.214 SUBJECTIVE: 40-year-old hospital day #2 for a small-bowel obstruction. The patient has had surgery for a bowel obstruction, last about 7 years ago. She has had also a cholecystectomy, appendectomy, hysterectomy, and C-sections and had bowel obstruction with lysis of adhesions. Back in 2009, she also had an exploratory laparotomy with lysis of adhesions with her hysterectomy and salpingo-oophorectomy and bladder repair for cystotomy and she has had previous colonoscopies, the last was in 2017. She did have a bowel movement this morning. She has had nausea but no further vomiting. She vomited and had pain upon arrival to the ER and got IV Zofran and Dilaudid and did not require an NG. She states she was pretty good. She ate around 1 p.m., but then about 4:35 when she was preparing supper that is when she had the significant mid abdominal discomfort. She underwent CT and had a mild small-bowel obstruction, noted an apparent transition point in the left lower quadrant. This morning, her pain is mainly in the mid abdomen right below the umbilicus. She had several doses of IV Dilaudid, the 0.5 did not seem to help her as much. She got 1 dose of Toradol yesterday, it did not help that much. She really has a headache now and is hoping to get an Excedrin Migraine as she does have known migraines. She is otherwise not coughing, not short of breath. No fevers. Lab work was okay yesterday. OBJECTIVE: Vital Signs: Patient's temperature 97.8, pulse 90, blood pressure 140/81, respiratory rate 21, and O2 of 93% on room air. General: She is in no acute distress. Heart: Regular rate and rhythm. S1, S2 without murmur. Lungs: Lung sounds are clear to auscultation bilaterally without crackles or wheezes. Abdomen: Nondistended. Positive bowel sounds that are hypoactive with tenderness in the mid epigastric area with some slight firmness noted there. Otherwise, the abdomen is soft. Extremities: Warm and dry. No edema. Mental Status: She is slightly anxious. She is normally on some anxiety medicine. LABORATORY WORK: Repeated white count 5, hemoglobin 12.6, and platelets 262. Sodium 139, potassium 4.7, chloride 104, bicarbonate 32, BUN 8, creatinine 0.8, glucose 101, calcium 8.2, and magnesium 2. Lipase normal. ASSESSMENT: 1. Small bowel obstruction, mild with history of recurrent small bowel obstructions requiring surgery. At this point, we will repeat abdominal x- rays and if it looks okay and she is otherwise not vomiting, I will start her on a clear liquid diet. 2. Anxiety. We will order some IV Ativan and when able to tolerate a diet, I will restart home medications. 3. Headache, possible migraine. The patient will have p.r.n. Toradol restarted. She may take an Excedrin to try. 4. Obesity. 5. Smoking. She has requested a nicotine patch. We ordered 7. 6. Remote history of drug abuse. The patient has not used anything in many years per her report. 7. Depression and anxiety. Home medications will be restarted as soon as she is tolerating a diet. 8. Reflux esophagitis. We will restart her oral Protonix. We will give it to her IV if needed. PLAN: The patient will continue on acute cares. We will continue IV fluids until diet is started, which maybe a clear liquid as soon as later today. We will get an abdominal flat and upright. We will add IV anxiety medications. We will allow her to use some Toradol in addition to the IV Dilaudid. She should be up and walking in the halls to limit ileus. For DVT prophylaxis, she has been ordered on SCDs. We will hold off on any Lovenox in case she needs to be transferred for surgery, but if her condition improves and she is not requiring surgery but will be in the hospital for more than 24 hours, we will likely start Lovenox at that point. She is a code level 1. MKA: 12/19/2020 16:38:16 MODL: 12/19/2020 17:20:47 /[id number] AURA
[2020-12-19] MEDS: Baclofen 10 MG Tab PO SCH (19:37)
[2020-12-20] MEDS: HYDROmorphone 0.5 MG/0.5 ML Syringe IVPUSH PRN ×3 (00:49→05:55)
[2020-12-20] MEDS: LORazepam 2 MG/ML SDV IVPUSH PRN ×2 (02:24→05:59)
[2020-12-20] MEDS: Nicotine 7 MG/24 Hr Patch TRDERM SCH (07:45)
[2020-12-20] MEDS: Baclofen 10 MG Tab PO SCH ×2 (07:47→11:32)
[2020-12-20] MEDS ORDERED: Pantoprazole 40 MG Tab.CR PO SCH (08:00)
[2020-12-20] MEDS ORDERED: Citalopram 20 MG Tab PO SCH (08:00)
[2020-12-20] MEDS ORDERED: ARIPiprazole 5 MG Tab PO SCH (08:00)
[2020-12-20] MEDS ORDERED: Ondansetron 4 MG Tab.DIS PO PRN (08:52)
[2020-12-20] MEDS ORDERED: HYDROmorphone 0.5 MG/0.5 ML Syringe IVPUSH PRN (08:52)
[2020-12-20] MEDS ORDERED: HYDROmorphone 2 MG Tab PO PRN (08:53)
[2020-12-20] MEDS ORDERED: Metoclopramide 10 MG Tab PO PRN (08:54)
[2020-12-20] MEDS: Metoclopramide 10 MG/2 ML SDV IVPUSH PRN (09:11)
[2020-12-20] MEDS: Lactulose Soln 10 GM/15 ML 30 ML UD Cup PO PRN (09:11)
[2020-12-20] MEDS ORDERED: Acetaminophen/Aspirin/Caffeine 250-250-65 MG Tab PO ONE (10:58)
[2020-12-20 11:03] VITALS: BP 142/99; PULSE 103
--- NOTE | 2020-12-21 03:51 | DISCH ---
PRIMARY DISCHARGE DIAGNOSES: 1. Small bowel obstruction with history of recurrent small-bowel obstruction, requiring surgery previously. 2. Abdominal pain, nausea, and vomiting due to small bowel obstruction. 3. Anxiety. 4. Migraine headaches. She had 1 yesterday, it has resolved. 5. Obesity. 6. Depression. 7. Remote history of drug abuse. 8. Smoking. 9. Reflux esophagitis. REASON FOR ADMISSION: On the date of admission, this 40-year-old female presented to the emergency room with severe abdominal pain that started around 5 p.m. that evening while she was preparing supper. She last ate at 1 o'clock and was feeling fine. She has not vomited, said she has been admitted. She required IV nausea and pain medications which controlled her symptoms. She had a CT scan but did not require an NG tube. Her CT scan was showing a small bowel obstruction, mild with transition point in the left lower quadrant. The patient was still having pain in that mid abdomen area, but was not vomiting and wanting to try some diet. Therefore, she was started on clear liquids about 24 hours into her hospital stay. She tolerated that and even overnight did tolerate some crackers. She did though get Dilaudid every 2 hours 0.5 throughout the night. She did get some IV Ativan and did feel also the IV Reglan did help her nausea and she got 1 more additional dose of Toradol. This morning, she is still having pain. She is a little apprehensive about not having the pain medications, but does feel like she prefers to go home. She would like to try advancing her diet. She is a little nauseous but is having bowel movement, she had four. She actually requested a laxative and took lactulose. The patient does have tramadol which she uses at home through [facility] for [facility] back pain, but she reports that will do nothing for her stomach pain. She has not even tried it here. Otherwise, the patient was given a nicotine patch. OBJECTIVE: VITAL SIGNS: On discharge, her temperature is 97.9, pulse 111, blood pressure 151/95, respiratory rate 19, and O2 of 96% on room air. GENERAL: She is in no acute distress. HEART: Regular rate and rhythm. S1, S2 without murmur. LUNGS: Lung sounds are clear to auscultation bilaterally without crackles or wheezes. ABDOMEN: Positive bowel sounds. It is nondistended. It is soft. There is some tenderness in that mid epigastric area, but no firmness. No masses. MENTAL STATUS: She is alert and orientated x3. PSYCH: She is just mildly anxious. EXTREMITIES: Warm and dry. No edema. LAB WORK: Lab work looked excellent yesterday on repeat. It was not repeated today. DISCHARGE PLANS AND INSTRUCTIONS: The patient will follow up with Rommel Huynh in the clinic in 1 week's time. New medications will be Reglan as needed for nausea and lactulose as needed for constipation. Her Dilaudid was decreased to every 4 hours and also instituted oral today. So she will try eating a soft diet for lunch prior to going home later this afternoon. The patient has also been on a nicotine patch here and is encouraged not to return to smoking. She will return to the ER if she has severe abdominal pain or vomiting. MKA: 12/20/2020 09:05:55 MODL: 12/21/2020 03:45:08 /[id number] AURA
== END 2020-12-20 12:10 | disposition home or self-care (01) | DRG 390 ==
LOC: VM.ED 17:53 → VM.MS 20:47
PROVIDERS: ADMIT Nurse Practitioner Family; ATTEND Internal Medicine
DX: K56.609 Unspecified intestinal obstruction, unspecified as to partial versus complete obstruction (principal); G43.909 Migraine, unspecified, not intractable, without status migrainosus; E66.9 Obesity, unspecified; M79.7 Fibromyalgia; F32.9 Major depressive disorder, single episode, unspecified; F17.200 Nicotine dependence, unspecified, uncomplicated; Z20.822 Contact with and (suspected) exposure to COVID-19; H54.7 Unspecified visual loss; K21.9 Gastro-esophageal reflux disease without esophagitis; F41.0 Panic disorder [episodic paroxysmal anxiety]; K21.00 Gastro-esophageal reflux disease with esophagitis, without bleeding; Z88.8 Allergy status to other drugs, medicaments and biological substances; Z79.899 Other long term (current) drug therapy; Z90.49 Acquired absence of other specified parts of digestive tract; Z90.710 Acquired absence of both cervix and uterus
CPT/HCPCS: 36415; 74019; 74177; 80048; 80053; 81003; 83690; 83735; 85025; 85027; 86140; 96374; 96375; 96376; 99223; 99285-25; A9270-GY; J1170; J1885; J2060; J2405; J2765; J7030; Q9967; U0002

== ENCOUNTER 2021-08-04 13:11 | Emergency (ER) | payer MEDICAID ==
[2021-08-04 13:17] VITALS: BP 125/83; PULSE 131
[2021-08-04] MEDS ORDERED: Ondansetron 4 MG/2 ML SDV IVPUSH ONE (13:25)
[2021-08-04] MEDS ORDERED: Sodium Chloride 0.9% 1,000 ML IV ONE (13:25)
[2021-08-04] MEDS ORDERED: LORazepam 2 MG/ML SDV IVPUSH ONE (13:57)
[2021-08-04 14:13] LABS: CHLORIDE,CL 102 mmol/L (98-107); SODIUM,NA 140 mmol/L (136-145)
[2021-08-04] MEDS ORDERED: traMADol 50 MG Tab PO ONE (14:42)
[2021-08-04] MEDS ORDERED: Take Home: Ondansetron 4 MG Tab.DIS, 5 Tab Pack PO ONE (14:52)
== END 2021-08-04 15:01 | disposition home or self-care (01) ==
LOC: VM.ED 13:11
DX: K52.9 Noninfective gastroenteritis and colitis, unspecified (principal); E66.9 Obesity, unspecified; Z68.30 Body mass index [BMI] 30.0-30.9, adult; Z79.899 Other long term (current) drug therapy; Z88.8 Allergy status to other drugs, medicaments and biological substances
CPT/HCPCS: 74019; 80053; 81003; 83690; 85025; 86140; 96374; 96375; 99284; 99284-25; J2060; J2405; J7030; Q0162

== ENCOUNTER 2022-03-09 14:31 | Emergency (ER) | payer MEDICAID ==
[2022-03-09] MEDS ORDERED: diphenhydrAMINE 50 MG/ML SDV IM ONE (14:33)
[2022-03-09] MEDS ORDERED: Ketorolac 30 MG/ML SDV IM ONE (14:33)
[2022-03-09] MEDS ORDERED: Ondansetron 4 MG Tab.DIS PO ONE (14:35)
[2022-03-09 14:52] VITALS: BP 133/96; PULSE 105
== END 2022-03-09 15:55 | disposition home or self-care (01) ==
LOC: VM.ED 14:31
DX: G43.909 Migraine, unspecified, not intractable, without status migrainosus (principal); F17.210 Nicotine dependence, cigarettes, uncomplicated; E66.9 Obesity, unspecified; Z68.38 Body mass index [BMI] 38.0-38.9, adult; Z88.8 Allergy status to other drugs, medicaments and biological substances; Z79.899 Other long term (current) drug therapy; Z90.49 Acquired absence of other specified parts of digestive tract; Z90.710 Acquired absence of both cervix and uterus
CPT/HCPCS: 96372; 99283; A9270; J1200; J1885; J3230

== ENCOUNTER 2022-03-10 16:13 | Inpatient (IN) | payer MEDICAID ==
[2022-03-10] MEDS ORDERED: Sodium Chloride 0.9% 10 ML Syringe FLUSH PRN (16:35)
[2022-03-10] MEDS ORDERED: Ondansetron 4 MG/2 ML SDV IVPUSH ONE (16:37)
[2022-03-10] MEDS ORDERED: Lactated Ringers 1,000 ML IV ONE ×3 (16:37→19:01)
[2022-03-10] MEDS ORDERED: Morphine 2 MG/ML SYRINGE IVPUSH ONE ×2 (16:40→18:19)
[2022-03-10 17:01] LABS: PTT,PARTIAL THROMBOPLSTIN TIME 21.9 SEC (20.5-30.9)
[2022-03-10 17:13] LABS: CHLORIDE,CL 101 mmol/L (98-107); SODIUM,NA 138 mmol/L (136-145)
[2022-03-10] MEDS ORDERED: Iopamidol 612 MG/ML 100 ML Bottle IVPUSH ONE (17:14)
[2022-03-10 17:15] LABS: ANION GAP 18.8 mmol/L (5-15); ESTIMATED GFR 72 mL/min (>=60)
[2022-03-10 17:36] LABS: CORONAVIRUS COVID-19 NAA NEGATIVE (NEGATIVE); RESPIRATORY SYNCYTIAL VIR NAA NEGATIVE (NEGATIVE)
[2022-03-10 17:46] LABS: BARBITURATE SCREEN,URINE NEGATIVE (NEGATIVE); BUPRENORPHINE SCREEN,URINE NEGATIVE (NEGATIVE); METHAMPHETAMINE SCREEN, URINE NEGATIVE (NEGATIVE); THC SCREEN,URINE 50 NG/ML NEGATIVE (NEGATIVE)
[2022-03-10 17:47] LABS: BENZODIAZEPINES SCREEN,URINE POSITIVE (NEGATIVE)
[2022-03-10] MEDS ORDERED: Prochlorperazine 10 MG/2 ML SDV IV ONE (18:18)
[2022-03-10] MEDS ORDERED: Polyethylene Glycol 3350 Powder 17 GM Packet PO PRN (19:19)
[2022-03-10] MEDS ORDERED: Nicotine 21 MG/24 Hr Patch TRDERM SCH (19:45)
[2022-03-10] MEDS: Morphine 4 MG/ML Syringe IVPUSH PRN (20:11)
[2022-03-10] MEDS: Nicotine 14 MG/24 Hr Patch TRDERM SCH (20:26)
[2022-03-10] MEDS: Sodium Chloride 0.9% 1,000 ML IV SCH (20:28)
[2022-03-10] MEDS: Metoclopramide 10 MG/2 ML SDV IVPUSH SCH (20:56)
[2022-03-11] MEDS: Metoclopramide 10 MG/2 ML SDV IVPUSH SCH ×4 (01:15→20:27)
[2022-03-11] MEDS: Morphine 4 MG/ML Syringe IVPUSH PRN ×6 (01:21→20:42)
[2022-03-11] MEDS: Sodium Chloride 0.9% 1,000 ML IV SCH (04:43)
[2022-03-11 07:06] LABS: ANION GAP 7.6 mmol/L (5-15)
[2022-03-11] MEDS: Nicotine 14 MG/24 Hr Patch TRDERM SCH (08:06)
[2022-03-11] MEDS ORDERED: Flumazenil 0.1 MG/ML 5 ML MDV IVPUSH PRN (08:58)
[2022-03-11] MEDS: LORazepam 2 MG/ML SDV IVPUSH PRN (09:40)
[2022-03-11] MEDS: Pantoprazole 40 MG Vial IVPUSH SCH ×2 (09:40→20:33)
[2022-03-11] MEDS: ALPRAZolam 0.5 MG Tab PO SCH ×3 (09:40→20:26)
[2022-03-11] MEDS: ARIPiprazole 5 MG Tab PO SCH (09:45)
[2022-03-11] MEDS: LUBIPROSTONE 8 MCG PO SCH ×2 (09:53→18:13)
[2022-03-11] MEDS ORDERED: Enoxaparin 40 MG/0.4 ML Syringe SUBCUT SCH (13:00)
[2022-03-11] MEDS: NS + KCl 20mEq/L 1,000 ML IV SCH ×2 (13:04→22:53)
[2022-03-11] MEDS: Nicotine 14 MG/24 Hr Patch TOP SCH (16:07)
[2022-03-11] MEDS ORDERED: Ketorolac 15 MG/ML SDV IVPUSH PRN (17:02)
[2022-03-11] MEDS: Citalopram 20 MG Tab PO SCH (20:26)
[2022-03-12] MEDS: Metoclopramide 10 MG/2 ML SDV IVPUSH SCH ×4 (02:25→19:57)
[2022-03-12] MEDS: Morphine 4 MG/ML Syringe IVPUSH PRN ×3 (03:08→11:14)
[2022-03-12] MEDS: Ondansetron 4 MG/2 ML SDV IV PRN (04:41)
[2022-03-12 07:30] LABS: ANION GAP 10.8 mmol/L (5-15)
[2022-03-12] MEDS: ALPRAZolam 0.5 MG Tab PO SCH ×3 (09:03→20:03)
[2022-03-12] MEDS: ARIPiprazole 5 MG Tab PO SCH (09:04)
[2022-03-12] MEDS: LUBIPROSTONE 8 MCG PO SCH ×2 (09:04→17:45)
[2022-03-12] MEDS: Nicotine 14 MG/24 Hr Patch TOP SCH (09:04)
[2022-03-12] MEDS: Pantoprazole 40 MG Vial IVPUSH SCH ×2 (09:05→20:07)
[2022-03-12] MEDS ORDERED: Magnesium Sulfate/Water 2 GM in Premix Bag 1 BAG IV ONE (09:30)
[2022-03-12] MEDS: Acetaminophen Susp 160 MG/5 ML 120 ML Bottle PO PRN ×2 (10:10→15:43)
[2022-03-12] MEDS: LORazepam 2 MG/ML SDV IVPUSH PRN (17:52)
[2022-03-12] MEDS: Citalopram 20 MG Tab PO SCH (20:04)
[2022-03-13] MEDS: Ondansetron 4 MG/2 ML SDV IV PRN ×2 (00:05→06:31)
[2022-03-13] MEDS: Morphine 4 MG/ML Syringe IVPUSH PRN ×2 (00:14→07:54)
[2022-03-13] MEDS: Metoclopramide 10 MG/2 ML SDV IVPUSH SCH ×4 (01:42→19:50)
[2022-03-13 07:22] LABS: ANION GAP 11.6 mmol/L (5-15)
[2022-03-13] MEDS: Pantoprazole 40 MG Vial IVPUSH SCH ×2 (08:01→20:32)
[2022-03-13] MEDS: Nicotine 14 MG/24 Hr Patch TOP SCH (08:02)
[2022-03-13] MEDS: ALPRAZolam 0.5 MG Tab PO SCH ×3 (08:03→20:32)
[2022-03-13] MEDS: ARIPiprazole 5 MG Tab PO SCH (08:03)
[2022-03-13] MEDS: LUBIPROSTONE 8 MCG PO SCH ×2 (08:04→20:23)
[2022-03-13] MEDS ORDERED: Acetaminophen Susp 160 MG/5 ML 120 ML Bottle PO PRN (09:56)
[2022-03-13] MEDS ORDERED: Acetaminophen 325 MG Tab PO PRN (09:57)
[2022-03-13] MEDS: HYDROmorphone 0.5 MG/0.5 ML Syringe IVPUSH PRN ×3 (10:46→19:49)
[2022-03-13] MEDS: Citalopram 20 MG Tab PO SCH (20:33)
[2022-03-14] MEDS: HYDROmorphone 0.5 MG/0.5 ML Syringe IVPUSH PRN ×6 (00:44→23:38)
[2022-03-14] MEDS: Metoclopramide 10 MG/2 ML SDV IVPUSH SCH ×4 (01:02→20:09)
[2022-03-14 07:28] LABS: ANION GAP 13.6 mmol/L (5-15)
[2022-03-14] MEDS: ALPRAZolam 0.5 MG Tab PO SCH ×3 (08:55→20:09)
[2022-03-14] MEDS: Pantoprazole 40 MG Vial IVPUSH SCH ×2 (08:55→20:09)
[2022-03-14] MEDS: ARIPiprazole 5 MG Tab PO SCH (08:55)
[2022-03-14] MEDS: Ondansetron 4 MG/2 ML SDV IV PRN (08:55)
[2022-03-14] MEDS: Nicotine 14 MG/24 Hr Patch TOP SCH (08:58)
[2022-03-14] MEDS ORDERED: Bisacodyl 5 MG Tab PO ONE (09:30)
[2022-03-14] MEDS: LUBIPROSTONE 8 MCG PO SCH ×2 (09:40→17:50)
[2022-03-14] MEDS ORDERED: Enoxaparin 40 MG/0.4 ML Syringe SUBCUT SCH (13:30)
[2022-03-14] MEDS: Lactulose Soln 10 GM/15 ML 30 ML UD Cup PO SCH ×2 (13:31→20:08)
[2022-03-14] MEDS: LORazepam 2 MG/ML SDV IVPUSH PRN (18:56)
[2022-03-14] MEDS: Citalopram 20 MG Tab PO SCH (20:09)
[2022-03-15] MEDS: Metoclopramide 10 MG/2 ML SDV IVPUSH SCH ×2 (02:11→08:10)
[2022-03-15] MEDS: ALPRAZolam 0.5 MG Tab PO SCH ×2 (08:07→14:45)
[2022-03-15] MEDS: ARIPiprazole 5 MG Tab PO SCH (08:08)
[2022-03-15] MEDS: Pantoprazole 40 MG Vial IVPUSH SCH (08:10)
[2022-03-15] MEDS: Nicotine 14 MG/24 Hr Patch TOP SCH (08:28)
[2022-03-15] MEDS: Lactulose Soln 10 GM/15 ML 30 ML UD Cup PO SCH ×2 (08:28→14:52)
[2022-03-15] MEDS: LUBIPROSTONE 8 MCG PO SCH (08:29)
[2022-03-15] MEDS ORDERED: Metoclopramide 10 MG Tab PO SCH (11:00)
[2022-03-15 14:33] VITALS: BP 130/92; PULSE 118
== END 2022-03-15 15:05 | disposition home or self-care (01) | DRG 389 ==
LOC: VM.ED 16:13 → VM.MS 18:45
PROVIDERS: ADMIT Nurse Practitioner Family; ATTEND Internal Medicine
PROC: 0D9670Z Drainage of Stomach with Drainage Device, Via Natural or Artificial Opening (ICD-10-PCS; principal; 2022-03-10)
DX: K56.609 Unspecified intestinal obstruction, unspecified as to partial versus complete obstruction (principal); E87.20 Acidosis, unspecified; F33.2 Major depressive disorder, recurrent severe without psychotic features; E87.6 Hypokalemia; E83.42 Hypomagnesemia; G43.909 Migraine, unspecified, not intractable, without status migrainosus; F17.210 Nicotine dependence, cigarettes, uncomplicated; K21.00 Gastro-esophageal reflux disease with esophagitis, without bleeding; G47.00 Insomnia, unspecified; G89.29 Other chronic pain; M54.9 Dorsalgia, unspecified; F43.10 Post-traumatic stress disorder, unspecified; F41.1 Generalized anxiety disorder; H54.7 Unspecified visual loss; K21.9 Gastro-esophageal reflux disease without esophagitis; F17.200 Nicotine dependence, unspecified, uncomplicated; R74.8 Abnormal levels of other serum enzymes; Z90.49 Acquired absence of other specified parts of digestive tract; Z90.710 Acquired absence of both cervix and uterus; F32.A Depression, unspecified; F41.9 Anxiety disorder, unspecified; Z79.899 Other long term (current) drug therapy; Z88.8 Allergy status to other drugs, medicaments and biological substances; Z20.822 Contact with and (suspected) exposure to COVID-19
CPT/HCPCS: 0241U; 36415; 74018; 74177; 80053; 80305-QW; 80307; 81001; 81025; 83605; 83690; 83735; 84100; 84145; 84443; 84484; 85018; 85025; 85610; 85730; 86140; 87040; 93005; 93010; 96361; 96374; 96375; 96376; 97161-GP; 99284; 99285-25; A9270-GY; C9113; J0780; J1170; J1650; J1885; J2060; J2270; J2405; J2765; J3475; J3480; J7030; J7120; Q9967

== ENCOUNTER 2022-07-13 20:36 | Emergency (ER) | payer MEDICAID ==
[2022-07-13] MEDS ORDERED: diphenhydrAMINE 50 MG/ML SDV IVPUSH ONE (20:53)
[2022-07-13] MEDS ORDERED: Ketorolac 15 MG/ML SDV IVPUSH ONE (20:53)
[2022-07-13] MEDS ORDERED: Prochlorperazine 10 MG/2 ML SDV IV ONE (20:53)
[2022-07-14 00:30] VITALS: BP 118/86; PULSE 108
== END 2022-07-13 22:04 | disposition home or self-care (01) ==
LOC: VM.ED 20:36
DX: G43.909 Migraine, unspecified, not intractable, without status migrainosus (principal); E66.9 Obesity, unspecified; Z68.38 Body mass index [BMI] 38.0-38.9, adult; Z88.8 Allergy status to other drugs, medicaments and biological substances
CPT/HCPCS: 96374; 96375; 99283; 99283-25; J0780; J1200; J1885

== ENCOUNTER 2023-02-05 12:55 | Emergency (ER) | payer SELFPAY ==
[2023-02-05 13:02] VITALS: BP 145/103; PULSE 108
[2023-02-05] MEDS ORDERED: Ketorolac 30 MG/ML SDV IM ONE (13:05)
[2023-02-05] MEDS ORDERED: Ondansetron 4 MG Tab.DIS PO ONE (13:05)
[2023-02-05] MEDS ORDERED: diphenhydrAMINE 50 MG/ML SDV IM ONE (13:05)
== END 2023-02-05 15:21 | disposition home or self-care (01) ==
LOC: VM.ED 12:55
DX: G43.909 Migraine, unspecified, not intractable, without status migrainosus (principal); K21.9 Gastro-esophageal reflux disease without esophagitis; E66.9 Obesity, unspecified; Z68.30 Body mass index [BMI] 30.0-30.9, adult; Z88.8 Allergy status to other drugs, medicaments and biological substances; Z79.899 Other long term (current) drug therapy
CPT/HCPCS: 70450; 96372; 99283-25; 99284; A9270-GY; J1200; J1885; J3230

== ENCOUNTER 2023-02-19 01:15 | Observation (INO) | payer SELFPAY ==
[2023-02-19] MEDS ORDERED: Sodium Chloride 0.9% 10 ML Syringe FLUSH PRN (01:32)
[2023-02-19] MEDS ORDERED: Ondansetron 4 MG/2 ML SDV IVPUSH ONE (01:34)
[2023-02-19] MEDS ORDERED: HYDROmorphone 1 MG/ML Syringe IVPUSH ONE ×2 (01:34→03:10)
[2023-02-19] MEDS: Sodium Chloride 0.9% 1,000 ML IV SCH ×2 (01:45→03:22)
[2023-02-19] MEDS ORDERED: Iopamidol 612 MG/ML 100 ML Bottle IVPUSH ONE (01:53)
[2023-02-19 01:58] LABS: BASOPHILS PERCENT AUTO 0.2 % (0.2-1.2); EOSINOPHILS ABSOLUTE AUTO 0.1 x10^3/uL (0.0-0.5); EOSINOPHILS PERCENT AUTO 0.4 % (0.0-4.0); HEMATOCRIT 46.4 % (33.0-47.0); HEMOGLOBIN 15.6 g/dL (12.0-16.0); IMMATURE GRAN ABSOLUTE AUTO 0.02 x10^3/uL (0.00-0.07); LYMPHOCYTES PERCENT AUTO 30.1 % (25.0-50.0); MEAN CORPUSCULAR HEMOGLOBIN 31.3 pg (26.0-32.0); MEAN CORPUSCULAR HGB CONC 33.6 g/dL (32.0-36.0); MONOCYTES ABSOLUTE AUTO 0.5 x10^3/uL (0.0-0.8); MONOCYTES PERCENT AUTO 4.1 % (2.0-11.0); NEUTROPHILS ABSOLUTE AUTO 8.6 x10^3/uL (1.8-7.7); PLATELET COUNT,PLT 461 x10^3/uL (130-400); RED BLOOD CELL COUNT 4.99 x10^6/uL (4.00-5.50); WHITE BLOOD CELL COUNT,WBC 13.3 x10^3/uL (4.0-10.0)
[2023-02-19 02:20] LABS: A/G RATIO 1.22; ALBUMIN 4.4 g/dL (3.4-5.0); BILIRUBIN TOTAL 0.6 mg/dL (0.2-1.0); C-REACTIVE PROTEIN 0.63 mg/dL (<=0.50); CALCIUM 9.7 mg/dL (8.5-10.1); EST CRCL DRUG DOSING (CG) 72.42 mL/min; MAGNESIUM 1.8 mg/dL (1.8-2.4); PHOSPHORUS 4.2 mg/dL (2.6-4.7); POTASSIUM,K 3.6 mmol/L (3.5-5.1)
[2023-02-19 02:30] LABS: PROTHROMBIN TIME 10.3 SEC (9.5-12.2); PTT,PARTIAL THROMBOPLSTIN TIME 24.3 SEC (23.6-33.6)
[2023-02-19 02:32] LABS: ANION GAP 18.6 mmol/L (5-15)
[2023-02-19 02:38] LABS: LACTIC ACID 3.3 mmol/L (0.4-2.0)
[2023-02-19] MEDS ORDERED: Sodium Chloride 0.9% 1,000 ML IV SCH (02:45)
[2023-02-19 02:55] LABS: APPEARANCE,URINE CLEAR (CLEAR); BILIRUBIN,URINE SMALL (NEGATIVE); COLOR,URINE DARK YELLOW (YELLOW); GLUCOSE,URINE NEGATIVE (NEGATIVE); KETONES,URINE NEGATIVE (NEGATIVE); LEUKOCYTE ESTERASE,URINE NEGATIVE (NEGATIVE); NITRITE,URINE NEGATIVE (NEGATIVE); OCCULT BLOOD,URINE NEGATIVE (NEGATIVE); PH,URINE 5.5 (5.0-8.0); PROTEIN,URINE 100 mg/dL (NEGATIVE); UROBILINOGEN,URINE 0.2 EU/dL (0.2)
[2023-02-19 03:04] LABS: BACTERIA,URINE NOT SEEN /HPF (NOT SEEN); HYALINE CASTS,URINE MODERATE; MUCUS,URINE FEW /LPF (NOT SEEN); RBC,URINE 0-5 /HPF (NOT SEEN); SQUAMOUS EPITHELIAL CELLS,UR MANY /HPF (NOT SEEN); WBC,URINE 0-5 /HPF (NOT SEEN)
[2023-02-19] MEDS ORDERED: Metoclopramide 10 MG/2 ML SDV IVPUSH ONE (03:43)
[2023-02-19] MEDS ORDERED: Ketorolac 15 MG/ML SDV IVPUSH ONE (03:46)
[2023-02-19] MEDS ORDERED: Ondansetron 4 MG/2 ML SDV IVPUSH PRN (04:08)
[2023-02-19] MEDS ORDERED: Lactated Ringers 1,000 ML IV ONE (04:14)
[2023-02-19] MEDS: Metoclopramide 10 MG/2 ML SDV IVPUSH SCH ×2 (04:21→10:52)
[2023-02-19] MEDS ORDERED: RIZATRIPTAN 10 MG PO PRN (10:09)
[2023-02-19] MEDS ORDERED: Pantoprazole 40 MG Tab.CR PO SCH (10:15)
[2023-02-19] MEDS ORDERED: ESTRADIOL TOP SCH (10:15)
[2023-02-19] MEDS ORDERED: ALPRAZolam 0.5 MG Tab PO SCH (13:00)
[2023-02-19 15:59] VITALS: BP 137/71
[2023-02-19 16:00] VITALS: PULSE 64
[2023-02-19] MEDS ORDERED: Citalopram 20 MG Tab PO SCH (21:00)
== END 2023-02-19 15:40 | disposition home or self-care (01) ==
LOC: VM.ED 01:15 → VM.MS 03:42
PROVIDERS: ADMIT Physician Assistant; ATTEND Physician Assistant
DX: K56.7 Ileus, unspecified (principal); K21.9 Gastro-esophageal reflux disease without esophagitis; F41.1 Generalized anxiety disorder; F32.9 Major depressive disorder, single episode, unspecified; E66.9 Obesity, unspecified; Z68.39 Body mass index [BMI] 39.0-39.9, adult; Z90.49 Acquired absence of other specified parts of digestive tract; Z90.710 Acquired absence of both cervix and uterus; Z79.899 Other long term (current) drug therapy; Z88.8 Allergy status to other drugs, medicaments and biological substances
CPT/HCPCS: 36415; 74177; 80053; 81001; 83605; 83690; 83735; 84100; 85025; 85610; 85730; 86140; A9270-GY; J1170; J1885; J2405; J2765; J7030; J7120; Q9967

== ENCOUNTER 2023-08-23 02:30 | Inpatient (IN) | payer MEDICAID ==
[2023-08-23] MEDS: Ondansetron 4 MG/2 ML SDV IVPUSH ONE (03:06)
[2023-08-23] MEDS: HYDROmorphone 1 MG/ML Syringe IVPUSH ONE (03:06)
[2023-08-23] MEDS: Sodium Chloride 0.9% 1,000 ML IV ONE (03:06)
[2023-08-23 03:42] LABS: BASOPHILS PERCENT AUTO 0.3 % (0.2-1.2); EOSINOPHILS PERCENT AUTO 0.2 % (0.0-4.0); HEMATOCRIT 44.2 % (33.0-47.0); HEMOGLOBIN 14.9 g/dL (12.0-16.0); IMMATURE GRAN ABSOLUTE AUTO 0.04 x10^3/uL (0.00-0.07); LYMPHOCYTES ABSOLUTE AUTO 2.6 x10^3/uL (1.0-4.8); LYMPHOCYTES PERCENT AUTO 22.4 % (25.0-50.0); MEAN CORPUSCULAR HEMOGLOBIN 31.3 pg (26.0-32.0); MEAN CORPUSCULAR HGB CONC 33.7 g/dL (32.0-36.0); MEAN CORPUSCULAR VOLUME 92.9 fL (78.0-93.0); MONOCYTES ABSOLUTE AUTO 0.5 x10^3/uL (0.0-0.8); MONOCYTES PERCENT AUTO 4.4 % (2.0-11.0); NEUTROPHILS ABSOLUTE AUTO 8.3 x10^3/uL (1.8-7.7); NEUTROPHILS PERCENT AUTO 72.4 % (50.0-80.0); PLATELET COUNT,PLT 391 x10^3/uL (130-400); RED BLOOD CELL COUNT 4.76 x10^6/uL (4.00-5.50); WHITE BLOOD CELL COUNT,WBC 11.5 x10^3/uL (4.0-10.0)
[2023-08-23 04:04] LABS: A/G RATIO 1.31; ALBUMIN 4.7 g/dL (3.4-5.0); BILIRUBIN TOTAL 0.5 mg/dL (0.2-1.0); CALCIUM 10.1 mg/dL (8.5-10.1); CREATININE 0.8 mg/dL (0.55-1.02); EST CRCL DRUG DOSING (CG) 87.27 mL/min; POTASSIUM,K 3.6 mmol/L (3.5-5.1); PROTEIN TOTAL,TP 8.3 g/dL (6.4-8.2)
[2023-08-23 04:06] LABS: ANION GAP 16.6 mmol/L (5-15)
[2023-08-23] MEDS: Iopamidol 612 MG/ML 100 ML Bottle IVPUSH ONE (04:37)
[2023-08-23] MEDS: HYDROmorphone 1 MG/ML Syringe IVPUSH PRN ×2 (05:09→07:59)
[2023-08-23] MEDS: LORazepam 2 MG/ML SDV IVPUSH ONE (05:58)
[2023-08-23] MEDS: Sodium Chloride 0.9% 1,000 ML IV SCH (05:58)
[2023-08-23] MEDS ORDERED: Ketorolac 30 MG/ML SDV IM PRN (07:27)
[2023-08-23] MEDS ORDERED: RIZATRIPTAN BENZOATE 10 MG PO PRN (07:31)
[2023-08-23] MEDS: Pantoprazole 40 MG Tab.CR PO SCH (08:05)
[2023-08-23] MEDS: Dicyclomine 10 MG Cap PO PRN (08:05)
[2023-08-23] MEDS: ARIPiprazole 5 MG Tab PO SCH (08:05)
[2023-08-23] MEDS: ALPRAZolam 0.5 MG Tab PO SCH (08:05)
[2023-08-23] MEDS: Enoxaparin 40 MG/0.4 ML Syringe SUBCUT SCH (08:06)
[2023-08-23] MEDS: Nicotine 14 MG/24 Hr Patch TRDERM SCH (08:06)
[2023-08-23] MEDS: Ondansetron 4 MG/2 ML SDV IVPUSH PRN ×2 (10:11→17:48)
[2023-08-23] MEDS: Ketorolac 30 MG/ML SDV IVPUSH PRN (10:59)
[2023-08-23] MEDS: Pantoprazole 40 MG Vial IVPUSH SCH (15:06)
[2023-08-23] MEDS: Escitalopram 10 MG Tab PO SCH (21:11)
[2023-08-24 07:48] LABS: BASOPHILS PERCENT AUTO 0.1 % (0.2-1.2); EOSINOPHILS PERCENT AUTO 0.1 % (0.0-4.0); HEMATOCRIT 39.6 % (33.0-47.0); HEMOGLOBIN 13.1 g/dL (12.0-16.0); IMMATURE GRAN ABSOLUTE AUTO 0.03 x10^3/uL (0.00-0.07); LYMPHOCYTES ABSOLUTE AUTO 1.2 x10^3/uL (1.0-4.8); LYMPHOCYTES PERCENT AUTO 14.6 % (25.0-50.0); MEAN CORPUSCULAR HEMOGLOBIN 31.6 pg (26.0-32.0); MEAN CORPUSCULAR HGB CONC 33.1 g/dL (32.0-36.0); MEAN CORPUSCULAR VOLUME 95.7 fL (78.0-93.0); MONOCYTES ABSOLUTE AUTO 0.6 x10^3/uL (0.0-0.8); MONOCYTES PERCENT AUTO 7.3 % (2.0-11.0); NEUTROPHILS ABSOLUTE AUTO 6.6 x10^3/uL (1.8-7.7); NEUTROPHILS PERCENT AUTO 77.5 % (50.0-80.0); PLATELET COUNT,PLT 313 x10^3/uL (130-400); RED BLOOD CELL COUNT 4.14 x10^6/uL (4.00-5.50); WHITE BLOOD CELL COUNT,WBC 8.5 x10^3/uL (4.0-10.0)
[2023-08-24 08:03] LABS: A/G RATIO 1.2; ALBUMIN 3.6 g/dL (3.4-5.0); BILIRUBIN TOTAL 0.4 mg/dL (0.2-1.0); CALCIUM 8.7 mg/dL (8.5-10.1); CREATININE 0.6 mg/dL (0.55-1.02); EST CRCL DRUG DOSING (CG) 116.35 mL/min; POTASSIUM,K 3.6 mmol/L (3.5-5.1); PROTEIN TOTAL,TP 6.6 g/dL (6.4-8.2)
[2023-08-24 08:04] LABS: ANION GAP 14.6 mmol/L (5-15)
[2023-08-24] MEDS: Dicyclomine 10 MG Cap PO SCH (08:49)
[2023-08-24] MEDS: HYDROmorphone 1 MG/ML Syringe IVPUSH PRN (08:49)
[2023-08-24] MEDS: Ondansetron 4 MG/2 ML SDV IVPUSH PRN (12:25)
[2023-08-25 06:58] LABS: BASOPHILS PERCENT AUTO 0.2 % (0.2-1.2); EOSINOPHILS PERCENT AUTO 0.2 % (0.0-4.0); HEMATOCRIT 37.1 % (33.0-47.0); HEMOGLOBIN 12.1 g/dL (12.0-16.0); IMMATURE GRAN ABSOLUTE AUTO 0.05 x10^3/uL (0.00-0.07); LYMPHOCYTES ABSOLUTE AUTO 1.7 x10^3/uL (1.0-4.8); MEAN CORPUSCULAR HEMOGLOBIN 31.6 pg (26.0-32.0); MEAN CORPUSCULAR HGB CONC 32.6 g/dL (32.0-36.0); MEAN CORPUSCULAR VOLUME 96.9 fL (78.0-93.0); MONOCYTES ABSOLUTE AUTO 0.6 x10^3/uL (0.0-0.8); MONOCYTES PERCENT AUTO 6.6 % (2.0-11.0); NEUTROPHILS ABSOLUTE AUTO 6.5 x10^3/uL (1.8-7.7); NEUTROPHILS PERCENT AUTO 73.4 % (50.0-80.0); PLATELET COUNT,PLT 264 x10^3/uL (130-400); RED BLOOD CELL COUNT 3.83 x10^6/uL (4.00-5.50); WHITE BLOOD CELL COUNT,WBC 8.9 x10^3/uL (4.0-10.0)
[2023-08-25 07:25] LABS: A/G RATIO 1.14; ALBUMIN 3.3 g/dL (3.4-5.0); BILIRUBIN TOTAL 0.4 mg/dL (0.2-1.0); CALCIUM 8.4 mg/dL (8.5-10.1); CREATININE 0.5 mg/dL (0.55-1.02); EST CRCL DRUG DOSING (CG) 139.63 mL/min; POTASSIUM,K 3.3 mmol/L (3.5-5.1); PROTEIN TOTAL,TP 6.2 g/dL (6.4-8.2)
[2023-08-25 07:27] LABS: ANION GAP 10.3 mmol/L (5-15)
[2023-08-25] MEDS: Iopamidol 612 MG/ML 100 ML Bottle IVPUSH ONE (14:04)
[2023-08-26 06:49] LABS: BASOPHILS PERCENT AUTO 0.2 % (0.2-1.2); EOSINOPHILS PERCENT AUTO 0.2 % (0.0-4.0); HEMATOCRIT 37.2 % (33.0-47.0); HEMOGLOBIN 12.5 g/dL (12.0-16.0); IMMATURE GRAN ABSOLUTE AUTO 0.08 x10^3/uL (0.00-0.07); LYMPHOCYTES PERCENT AUTO 20.8 % (25.0-50.0); MEAN CORPUSCULAR HEMOGLOBIN 31.9 pg (26.0-32.0); MEAN CORPUSCULAR HGB CONC 33.6 g/dL (32.0-36.0); MEAN CORPUSCULAR VOLUME 94.9 fL (78.0-93.0); MONOCYTES ABSOLUTE AUTO 0.4 x10^3/uL (0.0-0.8); MONOCYTES PERCENT AUTO 4.6 % (2.0-11.0); NEUTROPHILS ABSOLUTE AUTO 6.9 x10^3/uL (1.8-7.7); NEUTROPHILS PERCENT AUTO 73.4 % (50.0-80.0); PLATELET COUNT,PLT 296 x10^3/uL (130-400); RED BLOOD CELL COUNT 3.92 x10^6/uL (4.00-5.50); WHITE BLOOD CELL COUNT,WBC 9.5 x10^3/uL (4.0-10.0)
[2023-08-26 07:11] LABS: A/G RATIO 1.06; ALBUMIN 3.5 g/dL (3.4-5.0); BILIRUBIN TOTAL 0.4 mg/dL (0.2-1.0); CALCIUM 8.8 mg/dL (8.5-10.1); CREATININE 0.5 mg/dL (0.55-1.02); EST CRCL DRUG DOSING (CG) 139.63 mL/min; POTASSIUM,K 3.2 mmol/L (3.5-5.1); PROTEIN TOTAL,TP 6.8 g/dL (6.4-8.2)
[2023-08-26 07:12] LABS: ANION GAP 13.2 mmol/L (5-15)
[2023-08-26] MEDS: Potassium Chloride Riders 20 MEQ in Premix Bag 1 BAG IV ONE (10:59)
[2023-08-26 16:11] VITALS: BP 168/103; PULSE 97
== END 2023-08-26 16:30 | disposition short-term general hospital (02) | DRG 389 ==
LOC: VM.ED 02:30 → VM.MS 05:44
PROVIDERS: ADMIT Family Medicine; ATTEND Family Medicine
PROC: 0D9670Z Drainage of Stomach with Drainage Device, Via Natural or Artificial Opening (ICD-10-PCS; principal; 2023-08-23)
DX: K56.601 Complete intestinal obstruction, unspecified as to cause (principal); Z68.41 Body mass index [BMI] 40.0-44.9, adult; F32.A Depression, unspecified; H54.7 Unspecified visual loss; K21.9 Gastro-esophageal reflux disease without esophagitis; M54.9 Dorsalgia, unspecified; G89.29 Other chronic pain; F41.9 Anxiety disorder, unspecified; E66.9 Obesity, unspecified; D72.829 Elevated white blood cell count, unspecified; F17.210 Nicotine dependence, cigarettes, uncomplicated; F43.10 Post-traumatic stress disorder, unspecified; G47.33 Obstructive sleep apnea (adult) (pediatric); Z88.8 Allergy status to other drugs, medicaments and biological substances; Z79.899 Other long term (current) drug therapy; Z90.49 Acquired absence of other specified parts of digestive tract; Z98.890 Other specified postprocedural states; Z90.710 Acquired absence of both cervix and uterus; Z90.722 Acquired absence of ovaries, bilateral; Z90.89 Acquired absence of other organs
CPT/HCPCS: 36415; 74018; 74177; 80053; 81025; 82271; 83605; 83690; 83986; 85025; 96361; 96374; 96375; 96376; 99284; 99285-25; A9270-GY; C9113; J1170; J1650; J1885; J2060; J2405; J3480; J7030; Q9967

== ENCOUNTER 2023-09-10 15:52 | Emergency (ER) | payer MEDICAID ==
[2023-09-10] MEDS ORDERED: Sodium Chloride 0.9% 10 ML Syringe FLUSH PRN (15:58)
[2023-09-10 16:13] LABS: BASOPHILS PERCENT AUTO 0.3 % (0.2-1.2); EOSINOPHILS PERCENT AUTO 0.3 % (0.0-4.0); HEMOGLOBIN 14.6 g/dL (12.0-16.0); IMMATURE GRAN ABSOLUTE AUTO 0.03 x10^3/uL (0.00-0.07); LYMPHOCYTES ABSOLUTE AUTO 2.4 x10^3/uL (1.0-4.8); LYMPHOCYTES PERCENT AUTO 21.8 % (25.0-50.0); MEAN CORPUSCULAR HEMOGLOBIN 31.4 pg (26.0-32.0); MEAN CORPUSCULAR VOLUME 92.5 fL (78.0-93.0); MONOCYTES ABSOLUTE AUTO 0.5 x10^3/uL (0.0-0.8); MONOCYTES PERCENT AUTO 4.8 % (2.0-11.0); NEUTROPHILS ABSOLUTE AUTO 7.9 x10^3/uL (1.8-7.7); NEUTROPHILS PERCENT AUTO 72.5 % (50.0-80.0); PLATELET COUNT,PLT 424 x10^3/uL (130-400); RED BLOOD CELL COUNT 4.65 x10^6/uL (4.00-5.50); WHITE BLOOD CELL COUNT,WBC 10.9 x10^3/uL (4.0-10.0)
[2023-09-10] MEDS: Lactated Ringers 1,000 ML IV ONE (16:23)
[2023-09-10] MEDS: Ondansetron 4 MG/2 ML SDV IVPUSH ONE (16:23)
[2023-09-10] MEDS: HYDROmorphone 1 MG/ML Syringe IVPUSH ONE (16:24)
[2023-09-10 16:26] LABS: INR 0.9 (0.9-1.1); PROTHROMBIN TIME 9.4 SEC (8.9-11.5); PTT,PARTIAL THROMBOPLSTIN TIME 25.6 SEC (21.9-33.8)
[2023-09-10 16:40] LABS: A/G RATIO 1.08; ALANINE AMINOTRANSFERASE,ALT 40 U/L (14-59); ALBUMIN 4.2 g/dL (3.4-5.0); ALKALINE PHOSPHATASE 139 U/L (46-116); ASPARTATE AMNIOTRANSFERASE,AST 19 U/L (15-37); BILIRUBIN TOTAL 0.3 mg/dL (0.2-1.0); BLOOD UREA NITROGEN,BUN 9 mg/dL (7-18); C-REACTIVE PROTEIN 0.96 mg/dL (<=0.50); CALCIUM 9.9 mg/dL (8.5-10.1); CARBON DIOXIDE,CO2 27 mmol/L (21-32); CHLORIDE,CL 99 mmol/L (98-107); CREATININE 0.8 mg/dL (0.55-1.02); GLUCOSE RANDOM 102 mg/dL (70-99); POTASSIUM,K 4.8 mmol/L (3.5-5.1); PROTEIN TOTAL,TP 8.1 g/dL (6.4-8.2); SODIUM,NA 139 mmol/L (136-145)
[2023-09-10 16:41] LABS: ANION GAP 17.8 mmol/L (5-15)
[2023-09-10 16:42] LABS: ESTIMATED GFR 93 mL/min (>=60)
[2023-09-10 16:45] LABS: BILIRUBIN,URINE NEGATIVE (NEGATIVE); COLOR,URINE YELLOW (YELLOW); GLUCOSE,URINE NEGATIVE (NEGATIVE); KETONES,URINE NEGATIVE (NEGATIVE); LEUKOCYTE ESTERASE,URINE MODERATE (NEGATIVE); NITRITE,URINE NEGATIVE (NEGATIVE); OCCULT BLOOD,URINE NEGATIVE (NEGATIVE); PH,URINE 7.5 (5.0-8.0); PROTEIN,URINE NEGATIVE (NEGATIVE); UROBILINOGEN,URINE 0.2 EU/dL (0.2)
[2023-09-10 16:46] LABS: APPEARANCE,URINE SLIGHTLY CLOUDY (CLEAR)
[2023-09-10 16:50] LABS: RBC,URINE 0-5 /HPF (NOT SEEN)
[2023-09-10 16:51] LABS: BACTERIA,URINE OCCASIONAL /HPF (NOT SEEN); SQUAMOUS EPITHELIAL CELLS,UR FEW /HPF (NOT SEEN); WBC,URINE 20-30 /HPF (NOT SEEN)
[2023-09-10 16:52] LABS: MUCUS,URINE OCCASIONAL /LPF (NOT SEEN)
[2023-09-10] MEDS: Iopamidol 612 MG/ML 100 ML Bottle IVPUSH ONE (17:40)
[2023-09-10] MEDS: cefTRIAXone 1 GM Vial IVPUSH ONE (18:13)
[2023-09-10 18:16] VITALS: BP 114/76; PULSE 93
== END 2023-09-10 18:29 | disposition home or self-care (01) ==
LOC: VM.ED 15:52
DX: N39.0 Urinary tract infection, site not specified (principal); Z88.8 Allergy status to other drugs, medicaments and biological substances; Z79.899 Other long term (current) drug therapy
CPT/HCPCS: 74177; 80053; 81001; 83605; 83735; 85025; 85610; 85730; 86140; 87086; 96361; 96374; 96375; 99284-25; J0696; J1170; J2405; J7120; Q9967

== ENCOUNTER 2023-10-01 15:25 | Emergency (ER) | payer MEDICAID ==
[2023-10-01 15:56] LABS: BASOPHILS ABSOLUTE AUTO 0.1 x10^3/uL (0.0-0.2); BASOPHILS PERCENT AUTO 0.5 % (0.2-1.2); EOSINOPHILS ABSOLUTE AUTO 0.1 x10^3/uL (0.0-0.5); EOSINOPHILS PERCENT AUTO 0.5 % (0.0-4.0); HEMATOCRIT 43.6 % (33.0-47.0); HEMOGLOBIN 14.5 g/dL (12.0-16.0); IMMATURE GRAN ABSOLUTE AUTO 0.02 x10^3/uL (0.00-0.07); LYMPHOCYTES ABSOLUTE AUTO 3.4 x10^3/uL (1.0-4.8); LYMPHOCYTES PERCENT AUTO 33.7 % (25.0-50.0); MEAN CORPUSCULAR HEMOGLOBIN 31.3 pg (26.0-32.0); MEAN CORPUSCULAR HGB CONC 33.3 g/dL (32.0-36.0); MEAN CORPUSCULAR VOLUME 94.2 fL (78.0-93.0); MONOCYTES ABSOLUTE AUTO 0.4 x10^3/uL (0.0-0.8); MONOCYTES PERCENT AUTO 4.3 % (2.0-11.0); NEUTROPHILS ABSOLUTE AUTO 6.2 x10^3/uL (1.8-7.7); NEUTROPHILS PERCENT AUTO 60.8 % (50.0-80.0); PLATELET COUNT,PLT 391 x10^3/uL (130-400); RED BLOOD CELL COUNT 4.63 x10^6/uL (4.00-5.50); WHITE BLOOD CELL COUNT,WBC 10.2 x10^3/uL (4.0-10.0)
[2023-10-01] MEDS: Sodium Chloride 0.9% 1,000 ML IV ONE (16:00)
[2023-10-01] MEDS: Ondansetron 4 MG/2 ML SDV IVPUSH ONE (16:01)
[2023-10-01] MEDS: HYDROmorphone 1 MG/ML Syringe IVPUSH ONE (16:04)
[2023-10-01 16:17] LABS: A/G RATIO 1.08; ANION GAP 13.4 mmol/L (5-15); BILIRUBIN TOTAL 0.2 mg/dL (0.2-1.0); CREATININE 0.8 mg/dL (0.55-1.02); EST CRCL DRUG DOSING (CG) 88.9 mL/min; POTASSIUM,K 4.4 mmol/L (3.5-5.1); PROTEIN TOTAL,TP 7.7 g/dL (6.4-8.2)
[2023-10-01] MEDS: Iopamidol 612 MG/ML 100 ML Bottle IVPUSH ONE (16:30)
[2023-10-01 17:35] VITALS: BP 113/70; PULSE 100
== END 2023-10-01 17:42 | disposition home or self-care (01) ==
LOC: SUPCPDRO 15:25 → VM.ED 15:25
DX: K56.609 Unspecified intestinal obstruction, unspecified as to partial versus complete obstruction (principal); K21.9 Gastro-esophageal reflux disease without esophagitis; Z88.8 Allergy status to other drugs, medicaments and biological substances; Z79.899 Other long term (current) drug therapy; Z90.49 Acquired absence of other specified parts of digestive tract; Z90.710 Acquired absence of both cervix and uterus
CPT/HCPCS: 36415; 74177; 80053; 83605; 83690; 85025; 96361; 96374; 96375; 99284; J1170; J2405; J7030; Q9967

== ENCOUNTER 2023-10-09 22:26 | Emergency (ER) | payer MEDICAID ==
[2023-10-09] MEDS ORDERED: Naloxone 0.4 MG/ML SDV IVPUSH PRN (22:48)
[2023-10-09] MEDS: Ondansetron 4 MG/2 ML SDV IVPUSH ONE (22:54)
[2023-10-09] MEDS: HYDROmorphone 1 MG/ML Syringe IVPUSH ONE (22:54)
[2023-10-09 22:56] LABS: BASOPHILS PERCENT AUTO 0.2 % (0.2-1.2); EOSINOPHILS ABSOLUTE AUTO 0.1 x10^3/uL (0.0-0.5); EOSINOPHILS PERCENT AUTO 0.4 % (0.0-4.0); HEMATOCRIT 44.7 % (33.0-47.0); HEMOGLOBIN 14.9 g/dL (12.0-16.0); IMMATURE GRAN ABSOLUTE AUTO 0.14 x10^3/uL (0.00-0.07); LYMPHOCYTES ABSOLUTE AUTO 4.6 x10^3/uL (1.0-4.8); LYMPHOCYTES PERCENT AUTO 32.5 % (25.0-50.0); MEAN CORPUSCULAR HEMOGLOBIN 31.6 pg (26.0-32.0); MEAN CORPUSCULAR HGB CONC 33.3 g/dL (32.0-36.0); MEAN CORPUSCULAR VOLUME 94.7 fL (78.0-93.0); MONOCYTES ABSOLUTE AUTO 0.6 x10^3/uL (0.0-0.8); MONOCYTES PERCENT AUTO 4.4 % (2.0-11.0); NEUTROPHILS ABSOLUTE AUTO 8.7 x10^3/uL (1.8-7.7); NEUTROPHILS PERCENT AUTO 61.5 % (50.0-80.0); PLATELET COUNT,PLT 418 x10^3/uL (130-400); RED BLOOD CELL COUNT 4.72 x10^6/uL (4.00-5.50); WHITE BLOOD CELL COUNT,WBC 14.2 x10^3/uL (4.0-10.0)
[2023-10-09 23:07] LABS: A/G RATIO 1.05; ALANINE AMINOTRANSFERASE,ALT 54 U/L (14-59); ALKALINE PHOSPHATASE 119 U/L (46-116); ASPARTATE AMNIOTRANSFERASE,AST 15 U/L (15-37); BILIRUBIN TOTAL 0.3 mg/dL (0.2-1.0); BLOOD UREA NITROGEN,BUN 10 mg/dL (7-18); CALCIUM 10.3 mg/dL (8.5-10.1); CARBON DIOXIDE,CO2 31 mmol/L (21-32); CHLORIDE,CL 99 mmol/L (98-107); CREATININE 1.1 mg/dL (0.55-1.02); GLUCOSE RANDOM 119 mg/dL (70-99); LIPASE 15 U/L (19-71); POTASSIUM,K 4.3 mmol/L (3.5-5.1); PROTEIN TOTAL,TP 7.8 g/dL (6.4-8.2); SODIUM,NA 143 mmol/L (136-145)
[2023-10-09 23:08] LABS: ANION GAP 17.3 mmol/L (5-15); ESTIMATED GFR 64 mL/min (>=60)
[2023-10-09] MEDS: Lactated Ringers 1,000 ML IV ONE (23:21)
[2023-10-09] MEDS: Iopamidol 612 MG/ML 100 ML Bottle IVPUSH ONE (23:54)
[2023-10-10] MEDS: HYDROmorphone 1 MG/ML Syringe IVPUSH ONE (00:10)
[2023-10-10 00:22] LABS: APPEARANCE,URINE CLEAR (CLEAR); BILIRUBIN,URINE NEGATIVE (NEGATIVE); COLOR,URINE YELLOW (YELLOW); GLUCOSE,URINE NEGATIVE (NEGATIVE); KETONES,URINE NEGATIVE (NEGATIVE); LEUKOCYTE ESTERASE,URINE NEGATIVE (NEGATIVE); NITRITE,URINE NEGATIVE (NEGATIVE); OCCULT BLOOD,URINE NEGATIVE (NEGATIVE); PROTEIN,URINE NEGATIVE (NEGATIVE); UROBILINOGEN,URINE 0.2 EU/dL (0.2)
[2023-10-10] MEDS ORDERED: Ondansetron 4 MG/2 ML SDV IV PRN (01:18)
[2023-10-10 01:27] VITALS: BP 110/62; PULSE 112
[2023-10-10] MEDS ORDERED: Dextrose 5%-0.45% NaCl 1,000 ML IV SCH (01:30)
[2023-10-10] MEDS: HYDROmorphone 0.5 MG/0.5 ML Syringe IVPUSH PRN (01:50)
[2023-10-10 06:05] LABS: BACTERIA,URINE OCCASIONAL /HPF (NOT SEEN); MUCUS,URINE RARE /LPF (NOT SEEN); RBC,URINE 0-5 /HPF (NOT SEEN); SQUAMOUS EPITHELIAL CELLS,UR OCCASIONAL /HPF (NOT SEEN); WBC,URINE 0-5 /HPF (NOT SEEN)
== END 2023-10-10 01:50 | disposition critical access hospital (66) ==
LOC: VM.ED 22:26
DX: K56.600 Partial intestinal obstruction, unspecified as to cause (principal); K21.9 Gastro-esophageal reflux disease without esophagitis; E66.9 Obesity, unspecified; Z68.41 Body mass index [BMI] 40.0-44.9, adult; Z90.49 Acquired absence of other specified parts of digestive tract; Z90.710 Acquired absence of both cervix and uterus; Z79.899 Other long term (current) drug therapy; Z88.8 Allergy status to other drugs, medicaments and biological substances
CPT/HCPCS: 74177; 80053; 81001; 83690; 85025; 96361; 96374; 96375; 96376; 99284; 99285-25; J1170; J2405; J7120; Q9967

== ENCOUNTER 2023-10-10 01:20 | Inpatient (IN) | payer MEDICAID ==
[2023-10-10] MEDS: Dextrose 5%-0.45% NaCl 1,000 ML IV SCH (02:35)
[2023-10-10] MEDS: Ondansetron 4 MG/2 ML SDV IVPUSH PRN (02:57)
[2023-10-10] MEDS: HYDROmorphone 0.5 MG/0.5 ML Syringe IVPUSH PRN ×2 (04:35→20:12)
[2023-10-10] MEDS: Pantoprazole 40 MG Vial IVPUSH ONE (05:12)
[2023-10-10 07:36] LABS: BASOPHILS PERCENT AUTO 0.2 % (0.2-1.2); EOSINOPHILS PERCENT AUTO 0.5 % (0.0-4.0); HEMOGLOBIN 13.1 g/dL (12.0-16.0); IMMATURE GRAN ABSOLUTE AUTO 0.06 x10^3/uL (0.00-0.07); LYMPHOCYTES ABSOLUTE AUTO 2.4 x10^3/uL (1.0-4.8); LYMPHOCYTES PERCENT AUTO 26.9 % (25.0-50.0); MEAN CORPUSCULAR HEMOGLOBIN 31.7 pg (26.0-32.0); MEAN CORPUSCULAR HGB CONC 32.8 g/dL (32.0-36.0); MEAN CORPUSCULAR VOLUME 96.9 fL (78.0-93.0); MONOCYTES ABSOLUTE AUTO 0.4 x10^3/uL (0.0-0.8); NEUTROPHILS ABSOLUTE AUTO 5.9 x10^3/uL (1.8-7.7); NEUTROPHILS PERCENT AUTO 66.7 % (50.0-80.0); PLATELET COUNT,PLT 303 x10^3/uL (130-400); RED BLOOD CELL COUNT 4.13 x10^6/uL (4.00-5.50); WHITE BLOOD CELL COUNT,WBC 8.9 x10^3/uL (4.0-10.0)
[2023-10-10 07:55] LABS: A/G RATIO 1.09; ALBUMIN 3.5 g/dL (3.4-5.0); ANION GAP 13.2 mmol/L (5-15); BILIRUBIN TOTAL 0.3 mg/dL (0.2-1.0); CALCIUM 9.4 mg/dL (8.5-10.1); CREATININE 0.8 mg/dL (0.55-1.02); EST CRCL DRUG DOSING (CG) 90.53 mL/min; POTASSIUM,K 4.2 mmol/L (3.5-5.1); PROTEIN TOTAL,TP 6.7 g/dL (6.4-8.2)
[2023-10-10 07:58] LABS: LACTIC ACID 1.4 mmol/L (0.4-2.0)
[2023-10-10] MEDS: HYDROmorphone 1 MG/ML Syringe IVPUSH PRN (14:55)
[2023-10-10] MEDS: ESTRADIOL 0.1 MG TOP SCH (17:22)
[2023-10-10] MEDS ORDERED: HYDROmorphone 0.5 MG/0.5 ML Syringe IV PRN (18:39)
[2023-10-10] MEDS: LORazepam 2 MG/ML SDV IVPUSH PRN (18:53)
[2023-10-10] MEDS: Enoxaparin 40 MG/0.4 ML Syringe SUBCUT SCH (20:11)
[2023-10-10] MEDS: Pantoprazole 40 MG Vial IVPUSH SCH (20:12)
[2023-10-11 07:38] LABS: BASOPHILS PERCENT AUTO 0.1 % (0.2-1.2); EOSINOPHILS PERCENT AUTO 0.4 % (0.0-4.0); HEMATOCRIT 38.6 % (33.0-47.0); HEMOGLOBIN 12.7 g/dL (12.0-16.0); IMMATURE GRAN ABSOLUTE AUTO 0.05 x10^3/uL (0.00-0.07); LYMPHOCYTES ABSOLUTE AUTO 1.6 x10^3/uL (1.0-4.8); LYMPHOCYTES PERCENT AUTO 17.2 % (25.0-50.0); MEAN CORPUSCULAR HEMOGLOBIN 31.8 pg (26.0-32.0); MEAN CORPUSCULAR HGB CONC 32.9 g/dL (32.0-36.0); MEAN CORPUSCULAR VOLUME 96.5 fL (78.0-93.0); MONOCYTES ABSOLUTE AUTO 0.5 x10^3/uL (0.0-0.8); MONOCYTES PERCENT AUTO 4.9 % (2.0-11.0); NEUTROPHILS ABSOLUTE AUTO 7.3 x10^3/uL (1.8-7.7); NEUTROPHILS PERCENT AUTO 76.9 % (50.0-80.0); PLATELET COUNT,PLT 265 x10^3/uL (130-400); WHITE BLOOD CELL COUNT,WBC 9.5 x10^3/uL (4.0-10.0)
[2023-10-11 07:48] LABS: A/G RATIO 1.03; ALBUMIN 3.4 g/dL (3.4-5.0); BILIRUBIN TOTAL 0.3 mg/dL (0.2-1.0); CALCIUM 9.1 mg/dL (8.5-10.1); CREATININE 0.8 mg/dL (0.55-1.02); EST CRCL DRUG DOSING (CG) 90.53 mL/min; POTASSIUM,K 4.1 mmol/L (3.5-5.1); PROTEIN TOTAL,TP 6.7 g/dL (6.4-8.2)
[2023-10-11 07:50] LABS: ANION GAP 12.1 mmol/L (5-15)
[2023-10-11] MEDS ORDERED: HYDROmorphone 0.5 MG/0.5 ML Syringe IVPUSH PRN (08:16)
[2023-10-11] MEDS: Pantoprazole 40 MG Vial IVPUSH SCH (09:03)
[2023-10-11] MEDS: HYDROmorphone 1 MG/ML Syringe IVPUSH PRN (10:00)
[2023-10-11 14:26] VITALS: BP 176/84; PULSE 86
== END 2023-10-11 16:26 | disposition home or self-care (01) | DRG 390 ==
LOC: VM.MS 01:20
PROVIDERS: ADMIT Nurse Practitioner Family; ATTEND Family Medicine
DX: K56.50 Intestinal adhesions [bands], unspecified as to partial versus complete obstruction (principal); K21.9 Gastro-esophageal reflux disease without esophagitis; E66.9 Obesity, unspecified; F32.9 Major depressive disorder, single episode, unspecified; G47.33 Obstructive sleep apnea (adult) (pediatric); F41.0 Panic disorder [episodic paroxysmal anxiety]; G89.29 Other chronic pain; M54.9 Dorsalgia, unspecified; I10 Essential (primary) hypertension; F43.10 Post-traumatic stress disorder, unspecified; Z88.8 Allergy status to other drugs, medicaments and biological substances; Z63.5 Disruption of family by separation and divorce; Z90.49 Acquired absence of other specified parts of digestive tract; Z90.710 Acquired absence of both cervix and uterus; Z90.721 Acquired absence of ovaries, unilateral; Z98.890 Other specified postprocedural states; Z79.899 Other long term (current) drug therapy; Z68.39 Body mass index [BMI] 39.0-39.9, adult
CPT/HCPCS: 36415; 80053; 83605; 85025; C9113; J1170; J1650; J2060; J2405; J7042

== ENCOUNTER 2024-03-19 22:03 | Inpatient (IN) | payer MEDICAID ==
[2024-03-19] MEDS: Ondansetron 4 MG/2 ML SDV IVPUSH ONE (22:11)
[2024-03-19] MEDS: Sodium Chloride 0.9% 1,000 ML IV ONE (22:11)
[2024-03-19] MEDS: HYDROmorphone 0.5 MG/0.5 ML Syringe IVPUSH ONE ×3 (22:12→23:49)
[2024-03-19 22:28] LABS: BASOPHILS PERCENT AUTO 0.2 % (0.2-1.2); EOSINOPHILS PERCENT AUTO 0.1 % (0.0-4.0); HEMATOCRIT 48.2 % (33.0-47.0); HEMOGLOBIN 16.4 g/dL (12.0-16.0); IMMATURE GRAN ABSOLUTE AUTO 0.06 x10^3/uL (0.00-0.07); LYMPHOCYTES PERCENT AUTO 15.8 % (25.0-50.0); MEAN CORPUSCULAR HEMOGLOBIN 30.8 pg (26.0-32.0); MEAN CORPUSCULAR VOLUME 90.4 fL (78.0-93.0); MONOCYTES ABSOLUTE AUTO 0.8 x10^3/uL (0.0-0.8); MONOCYTES PERCENT AUTO 4.5 % (2.0-11.0); NEUTROPHILS ABSOLUTE AUTO 14.9 x10^3/uL (1.8-7.7); NEUTROPHILS PERCENT AUTO 79.1 % (50.0-80.0); PLATELET COUNT,PLT 504 x10^3/uL (130-400); RED BLOOD CELL COUNT 5.33 x10^6/uL (4.00-5.50)
[2024-03-19 22:30] LABS: WHITE BLOOD CELL COUNT,WBC 18.8 x10^3/uL (4.0-10.0)
[2024-03-19 22:47] LABS: A/G RATIO 1.26; ALBUMIN 4.8 g/dL (3.4-5.0); BILIRUBIN TOTAL 0.4 mg/dL (0.2-1.0); CALCIUM 11.4 mg/dL (8.5-10.1); CREATININE 1.3 mg/dL (0.55-1.02); EST CRCL DRUG DOSING (CG) 55.13 mL/min; POTASSIUM,K 3.9 mmol/L (3.5-5.1); PROTEIN TOTAL,TP 8.6 g/dL (6.4-8.2)
[2024-03-19 22:48] LABS: ANION GAP 22.9 mmol/L (5-15)
[2024-03-19] MEDS: LORazepam 2 MG/ML SDV IVPUSH ONE (22:48)
[2024-03-19] MEDS: Sodium Chloride 0.9% 500 ML IV ONE (23:01)
[2024-03-20] MEDS: Iopamidol 612 MG/ML 100 ML Bottle IVPUSH ONE (00:02)
[2024-03-20] MEDS: Ondansetron 4 MG/2 ML SDV IVPUSH ONE (00:11)
[2024-03-20] MEDS: HYDROmorphone 0.5 MG/0.5 ML Syringe IVPUSH ONE (00:52)
[2024-03-20 02:13] LABS: LACTIC ACID 2.9 mmol/L (0.4-2.0)
[2024-03-20] MEDS ORDERED: Ibuprofen 200 MG Tab PO PRN (03:17)
[2024-03-20] MEDS ORDERED: Acetaminophen/HYDROcodone 325-5 MG Tab PO PRN (03:17)
[2024-03-20] MEDS: HYDROmorphone 0.5 MG/0.5 ML Syringe IVPUSH PRN (03:43)
[2024-03-20] MEDS: Sodium Chloride 0.9% 1,000 ML IV SCH (03:46)
[2024-03-20] MEDS: Pantoprazole 40 MG Vial IVPUSH SCH (03:52)
[2024-03-20] MEDS: Nicotine 21 MG/24 Hr Patch TRDERM SCH (03:52)
[2024-03-20] MEDS: Ondansetron 4 MG/2 ML SDV IV PRN (05:59)
[2024-03-20 08:21] LABS: BASOPHILS PERCENT AUTO 0.1 % (0.2-1.2); EOSINOPHILS PERCENT AUTO 0.1 % (0.0-4.0); HEMATOCRIT 40.1 % (33.0-47.0); HEMOGLOBIN 13.2 g/dL (12.0-16.0); IMMATURE GRAN ABSOLUTE AUTO 0.02 x10^3/uL (0.00-0.07); LYMPHOCYTES ABSOLUTE AUTO 2.1 x10^3/uL (1.0-4.8); LYMPHOCYTES PERCENT AUTO 26.5 % (25.0-50.0); MEAN CORPUSCULAR HEMOGLOBIN 31.4 pg (26.0-32.0); MEAN CORPUSCULAR HGB CONC 32.9 g/dL (32.0-36.0); MEAN CORPUSCULAR VOLUME 95.2 fL (78.0-93.0); MONOCYTES ABSOLUTE AUTO 0.4 x10^3/uL (0.0-0.8); MONOCYTES PERCENT AUTO 5.6 % (2.0-11.0); NEUTROPHILS ABSOLUTE AUTO 5.2 x10^3/uL (1.8-7.7); NEUTROPHILS PERCENT AUTO 67.4 % (50.0-80.0); PLATELET COUNT,PLT 325 x10^3/uL (130-400); RED BLOOD CELL COUNT 4.21 x10^6/uL (4.00-5.50); WHITE BLOOD CELL COUNT,WBC 7.7 x10^3/uL (4.0-10.0)
[2024-03-20] MEDS: Enoxaparin 40 MG/0.4 ML Syringe SUBCUT SCH (08:25)
[2024-03-20 08:33] LABS: CREATININE 0.8 mg/dL (0.55-1.02); EST CRCL DRUG DOSING (CG) 89.58 mL/min; POTASSIUM,K 4.5 mmol/L (3.5-5.1)
[2024-03-20 08:35] LABS: ANION GAP 10.5 mmol/L (5-15)
[2024-03-20] MEDS ORDERED: Sennosides/Docusate Sodium 50-8.6 MG Tab PO PRN (09:46)
[2024-03-20] MEDS: Magnesium Citrate Solution 296 ML Bottle PO ONE (11:06)
[2024-03-20] MEDS: Lisinopril 20 MG Tab PO SCH (11:07)
[2024-03-20] MEDS: ARIPiprazole 5 MG Tab PO SCH (11:07)
[2024-03-20] MEDS: Metoclopramide 10 MG/2 ML SDV IVPUSH SCH (11:14)
[2024-03-20] MEDS: Polyethylene Glycol 3350 Powder 17 GM Packet PO SCH (11:14)
[2024-03-20] MEDS: ALPRAZolam 0.5 MG Tab PO SCH (14:00)
[2024-03-20 18:13] LABS: APPEARANCE,URINE CLEAR (CLEAR); BILIRUBIN,URINE SMALL (NEGATIVE); COLOR,URINE DARK YELLOW (YELLOW); GLUCOSE,URINE NEGATIVE (NEGATIVE); KETONES,URINE 40 mg/dL (NEGATIVE); LEUKOCYTE ESTERASE,URINE NEGATIVE (NEGATIVE); NITRITE,URINE NEGATIVE (NEGATIVE); OCCULT BLOOD,URINE NEGATIVE (NEGATIVE); PH,URINE 6.5 (5.0-8.0); PROTEIN,URINE 30 mg/dL (NEGATIVE); UROBILINOGEN,URINE 0.2 EU/dL (0.2)
[2024-03-20 18:16] LABS: BACTERIA,URINE OCCASIONAL /HPF (NOT SEEN); MUCUS,URINE OCCASIONAL /LPF (NOT SEEN); RBC,URINE 0-5 /HPF (NOT SEEN); SQUAMOUS EPITHELIAL CELLS,UR FEW /HPF (NOT SEEN); WBC,URINE 0-5 /HPF (NOT SEEN)
[2024-03-20] MEDS: Docusate Sodium 100 MG Cap PO SCH (21:24)
[2024-03-20] MEDS: Pantoprazole 40 MG Tab.CR PO SCH (21:24)
[2024-03-20] MEDS: Escitalopram 10 MG Tab PO SCH (21:24)
[2024-03-21 08:30] LABS: BASOPHILS PERCENT AUTO 0.2 % (0.2-1.2); EOSINOPHILS PERCENT AUTO 0.2 % (0.0-4.0); HEMATOCRIT 37.8 % (33.0-47.0); HEMOGLOBIN 12.4 g/dL (12.0-16.0); IMMATURE GRAN ABSOLUTE AUTO 0.01 x10^3/uL (0.00-0.07); LYMPHOCYTES ABSOLUTE AUTO 1.2 x10^3/uL (1.0-4.8); LYMPHOCYTES PERCENT AUTO 20.5 % (25.0-50.0); MEAN CORPUSCULAR HEMOGLOBIN 31.5 pg (26.0-32.0); MEAN CORPUSCULAR HGB CONC 32.8 g/dL (32.0-36.0); MEAN CORPUSCULAR VOLUME 95.9 fL (78.0-93.0); MONOCYTES ABSOLUTE AUTO 0.3 x10^3/uL (0.0-0.8); MONOCYTES PERCENT AUTO 4.7 % (2.0-11.0); NEUTROPHILS ABSOLUTE AUTO 4.3 x10^3/uL (1.8-7.7); NEUTROPHILS PERCENT AUTO 74.2 % (50.0-80.0); PLATELET COUNT,PLT 238 x10^3/uL (130-400); RED BLOOD CELL COUNT 3.94 x10^6/uL (4.00-5.50); WHITE BLOOD CELL COUNT,WBC 5.8 x10^3/uL (4.0-10.0)
[2024-03-21 08:54] LABS: A/G RATIO 1.3; ALBUMIN 3.5 g/dL (3.4-5.0); BILIRUBIN TOTAL 0.4 mg/dL (0.2-1.0); CREATININE 0.5 mg/dL (0.55-1.02); EST CRCL DRUG DOSING (CG) 143.33 mL/min; POTASSIUM,K 4.2 mmol/L (3.5-5.1); PROTEIN TOTAL,TP 6.2 g/dL (6.4-8.2)
[2024-03-21 08:55] LABS: ANION GAP 11.2 mmol/L (5-15)
[2024-03-21 09:25] VITALS: BP 158/98; PULSE 102
== END 2024-03-21 09:40 | disposition home or self-care (01) | DRG 389 ==
LOC: VM.ED 22:03 → VM.MS 03-20 02:35
PROVIDERS: ADMIT Family Medicine; ATTEND Nurse Practitioner Family
PROC: 0D9670Z Drainage of Stomach with Drainage Device, Via Natural or Artificial Opening (ICD-10-PCS; principal; 2024-03-20)
DX: K56.7 Ileus, unspecified (principal); Z68.41 Body mass index [BMI] 40.0-44.9, adult; K21.9 Gastro-esophageal reflux disease without esophagitis; M54.9 Dorsalgia, unspecified; F41.9 Anxiety disorder, unspecified; F32.A Depression, unspecified; G43.909 Migraine, unspecified, not intractable, without status migrainosus; E66.9 Obesity, unspecified; F17.210 Nicotine dependence, cigarettes, uncomplicated; R79.89 Other specified abnormal findings of blood chemistry; D72.823 Leukemoid reaction; I10 Essential (primary) hypertension; H54.7 Unspecified visual loss; Z98.890 Other specified postprocedural states; Z88.8 Allergy status to other drugs, medicaments and biological substances; Z79.899 Other long term (current) drug therapy; Z90.49 Acquired absence of other specified parts of digestive tract; Z90.710 Acquired absence of both cervix and uterus; Z90.722 Acquired absence of ovaries, bilateral; Z90.79 Acquired absence of other genital organ(s)
CPT/HCPCS: 36415; 74177; 80048; 80053; 81001; 83605; 85025; 99223; 99223-GT; 99238; 99284; A9270-GY; J1171; J1650; J2060; J2405; J2470; J2765; J7030; Q3014; Q9967

== ENCOUNTER 2024-06-22 21:17 | Emergency (ER) | payer MEDICAID ==
[2024-06-22] MEDS ORDERED: Sodium Chloride 0.9% 10 ML Syringe FLUSH PRN (21:26)
[2024-06-22] MEDS: HYDROmorphone 1 MG/ML Syringe IVPUSH ONE ×2 (21:47→22:47)
[2024-06-22] MEDS: Lactated Ringers 1,000 ML IV ONE (21:47)
[2024-06-22] MEDS: LORazepam 2 MG/ML SDV IVPUSH ONE ×2 (21:47→22:47)
[2024-06-22] MEDS: Ondansetron 4 MG/2 ML SDV IVPUSH ONE (21:48)
[2024-06-22 21:51] LABS: BASOPHILS PERCENT AUTO 0.2 % (0.2-1.2); EOSINOPHILS ABSOLUTE AUTO 0.1 x10^3/uL (0.0-0.5); EOSINOPHILS PERCENT AUTO 0.6 % (0.0-4.0); HEMATOCRIT 43.6 % (33.0-47.0); HEMOGLOBIN 14.6 g/dL (12.0-16.0); IMMATURE GRAN ABSOLUTE AUTO 0.06 x10^3/uL (0.00-0.07); LYMPHOCYTES ABSOLUTE AUTO 3.6 x10^3/uL (1.0-4.8); LYMPHOCYTES PERCENT AUTO 29.5 % (25.0-50.0); MEAN CORPUSCULAR HEMOGLOBIN 31.2 pg (26.0-32.0); MEAN CORPUSCULAR HGB CONC 33.5 g/dL (32.0-36.0); MEAN CORPUSCULAR VOLUME 93.2 fL (78.0-93.0); MONOCYTES ABSOLUTE AUTO 0.6 x10^3/uL (0.0-0.8); MONOCYTES PERCENT AUTO 5.2 % (2.0-11.0); NEUTROPHILS ABSOLUTE AUTO 7.8 x10^3/uL (1.8-7.7); PLATELET COUNT,PLT 399 x10^3/uL (130-400); RED BLOOD CELL COUNT 4.68 x10^6/uL (4.00-5.50); WHITE BLOOD CELL COUNT,WBC 12.2 x10^3/uL (4.0-10.0)
[2024-06-22 22:10] LABS: A/G RATIO 1.29; ALANINE AMINOTRANSFERASE,ALT 43 U/L (14-59); ALBUMIN 4.4 g/dL (3.4-5.0); ALKALINE PHOSPHATASE 97 U/L (46-116); ASPARTATE AMNIOTRANSFERASE,AST 23 U/L (15-37); BILIRUBIN TOTAL 0.4 mg/dL (0.2-1.0); BLOOD UREA NITROGEN,BUN 12 mg/dL (7-18); C-REACTIVE PROTEIN 0.94 mg/dL (<=0.50); CALCIUM 9.4 mg/dL (8.5-10.1); CARBON DIOXIDE,CO2 25 mmol/L (21-32); CHLORIDE,CL 98 mmol/L (98-107); CREATININE 0.9 mg/dL (0.55-1.02); ESTIMATED GFR 80 mL/min (>=60); GLUCOSE RANDOM 129 mg/dL (70-99); LIPASE 15 U/L (19-71); PROTEIN TOTAL,TP 7.8 g/dL (6.4-8.2); SODIUM,NA 133 mmol/L (136-145)
[2024-06-22 22:15] VITALS: BP 143/102; PULSE 120
[2024-06-22] MEDS: Iopamidol 612 MG/ML 100 ML Bottle IVPUSH ONE (22:39)
[2024-06-22] MEDS: Take Home: Ondansetron 4 MG Tab.DIS, 5 Tab Pack PO ONE (23:36)
[2024-06-22] MEDS: Magnesium Citrate Solution 296 ML Bottle PO ONE (23:36)
[2024-06-22] MEDS: Take Home: Acetaminophen/oxyCODONE 325-5 MG, 5 Tab Pack PO ONE (23:36)
== END 2024-06-22 23:46 | disposition home or self-care (01) ==
LOC: VM.ED 21:17
DX: K59.00 Constipation, unspecified (principal); R11.2 Nausea with vomiting, unspecified; F41.9 Anxiety disorder, unspecified; K21.9 Gastro-esophageal reflux disease without esophagitis; E66.9 Obesity, unspecified; Z90.49 Acquired absence of other specified parts of digestive tract; Z90.710 Acquired absence of both cervix and uterus; Z79.899 Other long term (current) drug therapy; Z88.8 Allergy status to other drugs, medicaments and biological substances
CPT/HCPCS: 36415; 74177; 80053; 83690; 85025; 86140; 96361; 96374; 96375; 96376; 99284-25; A9270-GY; J1171; J2060; J2405; J7120; Q0162; Q9967